=== PATIENT | male | born 1950 | race Caucasian/White ===

== ENCOUNTER 2017-06-23 14:45 | Inpatient (IN) | payer OTHER ==
[~2017-06-23] VITALS: Ht 182.9 cm; Wt 61.8 kg
[~2017-06-23 14:45] MED LIST: ALBU6.7H IH; ASPI-1181 PO; BUDE10.2 IH; CILO100T PO; CLON0.1T PO; CLOP75TA14 PO; CYCL10TA7 PO; DOCU100C33 PO; FERR325T22 PO; GABA-533 PO; GLIP10TA9 PO; INSU100V12 SQ; LABE300T PO; LISI10TA7 PO; METF10004 PO; MULT-1258 PO; OMEP20CA10 PO; SIME80TA12 PO; SIMV40TA5 PO; TRAZ-147 PO
[2017-06-23 15:22] LABS: BASOPHILS % (AUTO) 0.9 % (0.0-5.0); EOSINOPHILS % (AUTO) 0.8 % (0.0-8.0); LYMPHOCYTES % (AUTO) 14.5 % (21.0-51.0); MEAN CORPUSCULAR HEMOGLOBIN 23.5 pg (27.0-33.0); MEAN CORPUSCULAR HGB CONC 30.7 g/dL (32.0-36.0); MEAN CORPUSCULAR VOLUME 76.7 fL (79-99); MONOCYTES % (AUTO) 5.4 % (3.0-13.0); NEUTROPHILS % (AUTO) 78.4 % (40.0-77.0); NUCLEATED RED BLOOD CELLS 0.1 % (0.0-0.19); PLATELET COUNT (AUTO) 340 K/uL (130-400); RED BLOOD CELL COUNT(AUTO) 3.78 MIL/uL (4.50-6.20); RED CELL DISTRIBUTION WIDTH 18.7 % (11.0-15.5); WHITE BLOOD COUNT (AUTO) 5.8 K/uL (4.8-10.8)
[2017-06-23 15:33] LABS: INR 1.06 (0.85-1.15); PARTIAL THROMBOPLASTIN TIME 25.5 SEC (26.3-35.5); PROTHROMBIN TIME 11.1 SEC (9.6-11.6)
[2017-06-23 15:34] LABS: CREATININE 1.6 mg/dL (0.5-1.5); POTASSIUM 3.8 mmol/L (3.5-5.1)
[2017-06-23 15:39] LABS: ALBUMIN 3.5 g/dL (3.5-5.0); BILIRUBIN,TOTAL 0.6 mg/dL (0.2-1.0); TOTAL PROTEIN, SERUM 7.4 g/dL (6.0-8.3)
[2017-06-23] MEDS ORDERED: FUROSEMIDE 10 MG/ML 4ML VIAL ONE (15:42)
[2017-06-23] MEDS ORDERED: NITROGLYCERIN 1GM/1 INCH PACKET TD ONE (15:43)
[2017-06-23 15:48] LABS: B-TYPE NATRIURETIC PEPTIDE 775 pg/mL (0-100)
[2017-06-23] MEDS ORDERED: METOPROLOL TARTRATE 1 MG/ML 5ML VIAL IV ONE (16:43)
[2017-06-23 16:57] LABS: APPEARANCE,URINE Clear (CLEAR); BILIRUBIN,URINE Negative (NEGATIVE); COLOR,URINE Yellow (YELLOW); GLUCOSE, URINE (UA) Negative (NEGATIVE); KETONES,URINE Negative (NEGATIVE); LEUKOCYTE ESTERASE ,URINE Negative (NEGATIVE); NITRATE,URINE Negative (NEGATIVE); OCCULT BLOOD,URINE Negative (NEGATIVE); PROTEIN,URINE POS 1+ (NEGATIVE); UROBILINOGEN,URINE 0.2 mg/dL (0.2-1.0)
[2017-06-23] MEDS ORDERED: MORPHINE SULFATE 2 MG/ML 1ML SYG IV PRN (17:00)
[2017-06-23] MEDS ORDERED: GUAIFENESIN-DM 200/20 MG 10 ML PO PRN (17:00)
[2017-06-23] MEDS ORDERED: LACTULOSE 20 GM/30 ML UDCUP PO PRN (17:00)
[2017-06-23] MEDS ORDERED: ONDANSETRON HCL 4 MG/2 ML VIAL IV PRN (17:00)
[2017-06-23] MEDS ORDERED: ACETAMINOPHEN 325 MG TAB PO PRN ×2 (17:00)
[2017-06-23 17:14] LABS: BACTERIA,URINE Rare /HPF (None Seen); RBC,URINE None Seen /HPF (0-1); WBC,URINE 0-1 /HPF (0-1)
[2017-06-23] MEDS: IPRATROPIUM/ALBUTEROL SULFATE 3 ML SOLUTION IH SCH (18:59)
[2017-06-23 19:40] VITALS: BP 168/92
[2017-06-23] MEDS: FUROSEMIDE 10 MG/ML 4ML VIAL IVP SCH (21:12)
[2017-06-23] MEDS: FAMOTIDINE/PF 20 MG/2 ML VIAL IV SCH (21:12)
[2017-06-23] MEDS ORDERED: CLONIDINE HCL 0.1 MG TABLET PO PRN (22:45)
[2017-06-23] MEDS: TRAZODONE HCL 50 MG TAB PO SCH (23:14)
[2017-06-23] MEDS: LABETALOL HCL 200 MG TABLET PO SCH (23:14)
[2017-06-23 23:18] VITALS: BP 161/85
[2017-06-24] VITALS (7 sets, daily range): BP systolic 145–195; BP diastolic 64–99
[2017-06-24] MEDS: IPRATROPIUM/ALBUTEROL SULFATE 3 ML SOLUTION IH SCH ×4 (00:03→18:00)
[2017-06-24] MEDS: FAMOTIDINE/PF 20 MG/2 ML VIAL IV SCH ×2 (08:11→20:18)
[2017-06-24] MEDS: LABETALOL HCL 200 MG TABLET PO SCH ×2 (08:11→20:15)
[2017-06-24] MEDS: FUROSEMIDE 10 MG/ML 4ML VIAL IVP SCH ×2 (08:12→20:18)
[2017-06-24] MEDS ORDERED: LABETALOL HCL 300 MG PO SCH (09:00)
[2017-06-24] MEDS ORDERED: SUB PER P&T FOR ASTHMA OR COPD RECOMMENDATION IH PRN (09:15)
[2017-06-24] MEDS ORDERED: BUDESONIDE 0.5 MG/2 ML INH IH PRN (09:30)
[2017-06-24 10:12] LABS: HIGH SENSITIVITY CRP 6.35 mg/L (0.0-3.0); THYROID STIMULATING HORMONE 1.91 uIU/mL (0.36-3.74)
[2017-06-24 11:24] LABS: T4 (THYROXINE) 9.5 mcg/dL (4.7-13.3)
[2017-06-24] MEDS: CILOSTAZOL 100 MG TAB PO SCH ×2 (13:16→20:16)
[2017-06-24] MEDS: GABAPENTIN 300 MG CAPSULE PO SCH ×2 (13:17→20:26)
[2017-06-24] MEDS: FERROUS SULFATE 325 MG TABLET.DR PO SCH (20:16)
[2017-06-24] MEDS: ATORVASTATIN CALCIUM 20 MG TABLET PO SCH (20:17)
[2017-06-24] MEDS: INSULIN GLARGINE 100 UNITS/ML 10 ML VIAL SQ SCH (20:22)
[2017-06-24] MEDS: TRAZODONE HCL 50 MG TAB PO SCH (20:26)
[2017-06-24] MEDS ORDERED: TRAZODONE HCL 100 MG TABLET PO SCH (21:00)
[2017-06-25] MEDS: IPRATROPIUM/ALBUTEROL SULFATE 3 ML SOLUTION IH SCH ×5 (00:45→23:36)
[2017-06-25 04:22] VITALS: BP 167/78
[2017-06-25 05:07] LABS: HEMATOCRIT 27.3 % (42-54); MEAN CORPUSCULAR HEMOGLOBIN 23.3 pg (27.0-33.0); MEAN CORPUSCULAR HGB CONC 30.6 g/dL (32.0-36.0); MEAN CORPUSCULAR VOLUME 76.2 fL (79-99); NUCLEATED RED BLOOD CELLS 0.1 % (0.0-0.19); PLATELET COUNT (AUTO) 308 K/uL (130-400); RED BLOOD CELL COUNT(AUTO) 3.58 MIL/uL (4.50-6.20); RED CELL DISTRIBUTION WIDTH 18.5 % (11.0-15.5); WHITE BLOOD COUNT (AUTO) 5.2 K/uL (4.8-10.8)
[2017-06-25 05:35] LABS: CREATININE 1.9 mg/dL (0.5-1.5); POTASSIUM 3.6 mmol/L (3.5-5.1); THYROID STIMULATING HORMONE 1.09 uIU/mL (0.36-3.74)
[2017-06-25 07:56] VITALS: BP 162/75
[2017-06-25] MEDS: GABAPENTIN 300 MG CAPSULE PO SCH ×2 (08:14→22:06)
[2017-06-25] MEDS: CILOSTAZOL 100 MG TAB PO SCH ×2 (08:15→22:05)
[2017-06-25] MEDS: LABETALOL HCL 200 MG TABLET PO SCH ×2 (08:15→22:05)
[2017-06-25] MEDS: ASPIRIN 81 MG EC TAB PO SCH (08:15)
[2017-06-25] MEDS: FAMOTIDINE/PF 20 MG/2 ML VIAL IV SCH ×2 (08:16→22:02)
[2017-06-25] MEDS: FUROSEMIDE 10 MG/ML 4ML VIAL IVP SCH (08:16)
[2017-06-25] MEDS: CLOPIDOGREL BISULFATE 75 MG TAB PO SCH (08:30)
[2017-06-25] MEDS: FUROSEMIDE 40 MG TABLET PO SCH ×2 (09:00→17:24)
[2017-06-25 11:18] VITALS: BP 118/56
[2017-06-25 16:42] VITALS: BP 161/76
[2017-06-25 19:58] VITALS: BP 185/81
[2017-06-25] MEDS: TRAZODONE HCL 50 MG TAB PO SCH (22:05)
[2017-06-25] MEDS: ATORVASTATIN CALCIUM 20 MG TABLET PO SCH (22:05)
[2017-06-25] MEDS: FERROUS SULFATE 325 MG TABLET.DR PO SCH (22:05)
[2017-06-25 22:09] LABS: APPEARANCE BODY FLUID CLOUDY (CLEAR); COLOR,BODY FLUID ORANGE (LT YELLOW); SPECIMENTYPE,BODY FLUID PLEURAL; TOTAL VOLUME,BODY FLUID 1100 mL
[2017-06-25 22:10] LABS: BODY FLUID RBC 3196 /cu. mm.; BODY FLUID WBC 128 /cu. mm.
[2017-06-25] MEDS: INSULIN GLARGINE 100 UNITS/ML 10 ML VIAL SQ SCH (22:14)
[2017-06-25 22:16] LABS: BF LYMPHOCYTE 60 %; BF OTHER CELLS 7
[2017-06-25 23:09] VITALS: BP 157/76
[2017-06-26 04:05] VITALS: BP 146/63
[2017-06-26 05:26] LABS: HEMATOCRIT 25.3 % (42-54); MEAN CORPUSCULAR HEMOGLOBIN 24.1 pg (27.0-33.0); MEAN CORPUSCULAR HGB CONC 31.6 g/dL (32.0-36.0); MEAN CORPUSCULAR VOLUME 76.2 fL (79-99); PLATELET COUNT (AUTO) 269 K/uL (130-400); RED BLOOD CELL COUNT(AUTO) 3.32 MIL/uL (4.50-6.20); RED CELL DISTRIBUTION WIDTH 18.3 % (11.0-15.5); WHITE BLOOD COUNT (AUTO) 5.2 K/uL (4.8-10.8)
[2017-06-26 05:46] LABS: CREATININE 1.5 mg/dL (0.5-1.5); POTASSIUM 3.9 mmol/L (3.5-5.1)
[2017-06-26] MEDS: IPRATROPIUM/ALBUTEROL SULFATE 3 ML SOLUTION IH SCH ×4 (06:35→23:24)
[2017-06-26 07:00] VITALS: BP 144/86
[2017-06-26] MEDS: GABAPENTIN 300 MG CAPSULE PO SCH ×2 (09:43→20:28)
[2017-06-26] MEDS: CLOPIDOGREL BISULFATE 75 MG TAB PO SCH (09:43)
[2017-06-26] MEDS: FUROSEMIDE 40 MG TABLET PO SCH ×2 (09:44→17:33)
[2017-06-26] MEDS: LABETALOL HCL 200 MG TABLET PO SCH ×2 (09:44→20:30)
[2017-06-26] MEDS: FAMOTIDINE/PF 20 MG/2 ML VIAL IV SCH ×2 (09:44→20:24)
[2017-06-26] MEDS: CILOSTAZOL 100 MG TAB PO SCH ×2 (09:44→20:29)
[2017-06-26] MEDS: ASPIRIN 81 MG EC TAB PO SCH (09:44)
[2017-06-26 11:44] VITALS: BP 169/75
[2017-06-26 13:26] LABS: CREATININE 1.5 mg/dL (0.5-1.5); POTASSIUM 4.4 mmol/L (3.5-5.1)
[2017-06-26 16:00] VITALS: BP 153/83
[2017-06-26 19:47] VITALS: BP 152/74
[2017-06-26] MEDS: TRAZODONE HCL 50 MG TAB PO SCH (20:27)
[2017-06-26] MEDS: FERROUS SULFATE 325 MG TABLET.DR PO SCH (20:28)
[2017-06-26] MEDS: ATORVASTATIN CALCIUM 20 MG TABLET PO SCH (20:29)
[2017-06-26] MEDS: INSULIN GLARGINE 100 UNITS/ML 10 ML VIAL SQ SCH (20:34)
[2017-06-26 23:35] VITALS: BP 147/73
[2017-06-27 04:33] LABS: MEAN CORPUSCULAR HEMOGLOBIN 23.6 pg (27.0-33.0); MEAN CORPUSCULAR HGB CONC 31.1 g/dL (32.0-36.0); PLATELET COUNT (AUTO) 275 K/uL (130-400); RED BLOOD CELL COUNT(AUTO) 3.42 MIL/uL (4.50-6.20); RED CELL DISTRIBUTION WIDTH 18.1 % (11.0-15.5); WHITE BLOOD COUNT (AUTO) 6.3 K/uL (4.8-10.8)
[2017-06-27 04:35] LABS: CREATININE 1.7 mg/dL (0.5-1.5); POTASSIUM 4.5 mmol/L (3.5-5.1)
[2017-06-27 05:16] LABS: BAND NEUTROPHILS % (MANUAL) 13 % (0-2); LYMPHOCYTES % (MANUAL) 12 % (22-44); MAN.DIFF COMMENT-IMPRESSION MANUAL DIFFERENTIAL; MONOCYTES % (MANUAL) 6 % (2-9); PLATELET MORPHOLOGY COMMENT ADEQUATE; SEGMENTED NEUTROPHILS % 69 % (40-70)
[2017-06-27] MEDS: IPRATROPIUM/ALBUTEROL SULFATE 3 ML SOLUTION IH SCH ×4 (06:07→23:53)
[2017-06-27 07:00] VITALS: BP 134/64
[2017-06-27] MEDS: GABAPENTIN 300 MG CAPSULE PO SCH ×2 (10:08→22:01)
[2017-06-27] MEDS: LABETALOL HCL 200 MG TABLET PO SCH ×2 (10:08→22:00)
[2017-06-27] MEDS: ASPIRIN 81 MG EC TAB PO SCH (10:09)
[2017-06-27] MEDS: CLOPIDOGREL BISULFATE 75 MG TAB PO SCH (10:09)
[2017-06-27] MEDS: CILOSTAZOL 100 MG TAB PO SCH ×2 (10:09→22:03)
[2017-06-27] MEDS: FAMOTIDINE/PF 20 MG/2 ML VIAL IV SCH ×2 (10:10→21:57)
[2017-06-27 10:43] LABS: RETICULOCYTE % (AUTO) 2.38 % (0.42-2.23)
[2017-06-27 11:00] VITALS: BP 157/74
[2017-06-27 11:28] LABS: % IRON SATURATION 54.8 % (30-44); FERRITIN 42 ng/mL (30-400); IRON, SERUM 118 mcg/dL (65-175); TOTAL IRON BINDING CAPACITY 215 mcg/dL (250-450)
[2017-06-27 16:00] VITALS: BP 150/78
[2017-06-27 20:04] VITALS: BP 129/59
[2017-06-27] MEDS: INSULIN GLARGINE 100 UNITS/ML 10 ML VIAL SQ SCH (21:55)
[2017-06-27] MEDS: ATORVASTATIN CALCIUM 20 MG TABLET PO SCH (22:01)
[2017-06-27] MEDS: FERROUS SULFATE 325 MG TABLET.DR PO SCH (22:02)
[2017-06-27] MEDS: TRAZODONE HCL 50 MG TAB PO SCH (22:03)
[2017-06-27] MEDS ORDERED: GLUCAGON 1MG KIT 1 MG ML IM PRN (23:15)
[2017-06-27] MEDS ORDERED: DEXTROSE 50%-WATER 50 ML DISP.SYRIN IV PRN (23:15)
[2017-06-27] MEDS ORDERED: INSULIN HUMULIN R 100 UNIT/ML 3ML ONE (23:44)
[2017-06-27 23:47] VITALS: BP 153/69
[2017-06-28 04:03] VITALS: BP 120/51
[2017-06-28 04:40] LABS: HEMATOCRIT 22.2 % (42-54); MEAN CORPUSCULAR HEMOGLOBIN 24.6 pg (27.0-33.0); MEAN CORPUSCULAR HGB CONC 32.5 g/dL (32.0-36.0); MEAN CORPUSCULAR VOLUME 75.5 fL (79-99); PLATELET COUNT (AUTO) 218 K/uL (130-400); RED BLOOD CELL COUNT(AUTO) 2.94 MIL/uL (4.50-6.20); RED CELL DISTRIBUTION WIDTH 17.8 % (11.0-15.5); WHITE BLOOD COUNT (AUTO) 3.9 K/uL (4.8-10.8)
[2017-06-28 04:56] LABS: CREATININE 1.7 mg/dL (0.5-1.5)
[2017-06-28] MEDS: IPRATROPIUM/ALBUTEROL SULFATE 3 ML SOLUTION IH SCH ×2 (06:12→11:09)
[2017-06-28 06:15] LABS: HEPATITIS A ANTIBODY IGM Negative (Negative); HEPATITIS B CORE IGM Negative (Negative); HEPATITIS Bs ANTIGEN SCREEN P Negative (Negative)
[2017-06-28] MEDS: INSULIN HUMULIN R 100 UNIT/ML 3ML SQ SCH ×2 (06:22→12:14)
[2017-06-28 07:50] VITALS: BP 161/82
[2017-06-28] MEDS ORDERED: FURO40TA7 PO (08:49)
[2017-06-28] MEDS ORDERED: FERS325 PO (08:49)
[2017-06-28] MEDS ORDERED: FUROSEMIDE 40 MG TABLET PO SCH (09:00)
[2017-06-28] MEDS ORDERED: COMPOUND IV MISC 1 EACH IVSOLN MISC PRN (09:00)
[2017-06-28 09:03] LABS: HEMATOCRIT 24.5 % (42-54)
[2017-06-28] MEDS: GABAPENTIN 300 MG CAPSULE PO SCH (09:15)
[2017-06-28] MEDS: CILOSTAZOL 100 MG TAB PO SCH (09:16)
[2017-06-28] MEDS: ASPIRIN 81 MG EC TAB PO SCH (09:16)
[2017-06-28] MEDS: CLOPIDOGREL BISULFATE 75 MG TAB PO SCH (09:16)
[2017-06-28] MEDS: LABETALOL HCL 200 MG TABLET PO SCH (09:16)
[2017-06-28] MEDS: FAMOTIDINE/PF 20 MG/2 ML VIAL IV SCH (09:18)
[2017-06-28 11:29] VITALS: BP 162/89
[2017-06-28] MEDS: IRON SUCROSE COMPLEX 100 MG in SODIUM CHLORIDE 0.9% 50 ML IV SCH ×2 (11:57→11:58)
== END 2017-06-28 15:13 | disposition home or self-care (01) | DRG 291 ==
LOC: EDH 14:45 → EDHIP 16:50 → 2DH 17:57 → 2CH 06-24 13:30 → 2DH 06-24 21:04
PROVIDERS: ADMIT Family Medicine; ATTEND Family Medicine
PROC: 0W9B3ZZ Drainage of Left Pleural Cavity, Percutaneous Approach (ICD-10-PCS; principal; 2017-06-25)
DX: I13.0 Hypertensive heart and chronic kidney disease with heart failure and stage 1 through stage 4 chronic kidney disease, or unspecified chronic kidney disease (principal); I50.33 Acute on chronic diastolic (congestive) heart failure; J96.10 Chronic respiratory failure, unspecified whether with hypoxia or hypercapnia; I74.5 Embolism and thrombosis of iliac artery; E11.21 Type 2 diabetes mellitus with diabetic nephropathy; E11.42 Type 2 diabetes mellitus with diabetic polyneuropathy; Z99.81 Dependence on supplemental oxygen; E78.5 Hyperlipidemia, unspecified; E11.22 Type 2 diabetes mellitus with diabetic chronic kidney disease; E11.51 Type 2 diabetes mellitus with diabetic peripheral angiopathy without gangrene; E11.65 Type 2 diabetes mellitus with hyperglycemia; I25.10 Atherosclerotic heart disease of native coronary artery without angina pectoris; I70.1 Atherosclerosis of renal artery; J44.9 Chronic obstructive pulmonary disease, unspecified; N18.3 Chronic kidney disease, stage 3 (moderate); D64.9 Anemia, unspecified; Z87.81 Personal history of (healed) traumatic fracture; Z87.891 Personal history of nicotine dependence; Z95.1 Presence of aortocoronary bypass graft; Z95.5 Presence of coronary angioplasty implant and graft
CPT/HCPCS: 36415; 71045; 71250; 76700; 80048; 80053; 80074; 81001; 82105; 82378; 82550; 82607; 82728; 82746; 82945; 82948; 83615; 83880; 83986; 84157; 84436; 84439; 84443; 84484; 85025; 85027; 85610; 85651; 85730; 86038; 86141; 86160; 86431; 87071; 87205; 88108; 88305; 89051; 93005; 93306; 93308; 94640; 94664; 99291; J1756; J1815; J1940; J3490

== ENCOUNTER → 2017-09-21 | Outpatient (CLI) | payer OTHER ==
[~2017-09-21] MED LIST changes: +FERS325 PO; +FOLI1TAB15 PO; +FURO40TA5 PO; +FURO40TA7 PO; -LABE300T PO; +LABE300T2 PO; +POTA99TA21 PO; +PRED10TA3 PO; -TRAZ-147 PO; +TRAZ-187 PO
== END | disposition home or self-care (01) ==
LOC: SHCH 07:50
PROVIDERS: ATTEND Internal Medicine Cardiovascular Disease
DX: K55.059 Acute (reversible) ischemia of intestine, part and extent unspecified (principal); K21.9 Gastro-esophageal reflux disease without esophagitis
CPT/HCPCS: 93978

== ENCOUNTER → 2017-09-23 | Outpatient (CLI) | payer OTHER ==
[~2017-09-23] MED LIST changes: +LIDOCAINE HCL 1% 20 ML VIAL ONE
[2017-09-23 15:30] LABS: INR 1.19 (0.85-1.15); PARTIAL THROMBOPLASTIN TIME 25.4 SEC (26.3-35.5); PROTHROMBIN TIME 12.5 SEC (9.6-11.6)
== END | disposition home or self-care (01) ==
LOC: RAH 14:06
PROVIDERS: ATTEND Internal Medicine Cardiovascular Disease
DX: J90 Pleural effusion, not elsewhere classified (principal); R18.8 Other ascites; Z98.890 Other specified postprocedural states; I10 Essential (primary) hypertension; E78.5 Hyperlipidemia, unspecified; E11.9 Type 2 diabetes mellitus without complications; Z87.891 Personal history of nicotine dependence; Z79.84 Long term (current) use of oral hypoglycemic drugs; Z79.899 Other long term (current) drug therapy; Z79.01 Long term (current) use of anticoagulants
CPT/HCPCS: 32555; 36415; 71045; 85610; 85730

== ENCOUNTER 2017-10-07 12:00 | Inpatient (IN) | payer OTHER ==
[~2017-10-07] VITALS: Ht 177.8 cm; Wt 64.0 kg
[~2017-10-07 12:00] MED LIST changes: -FOLI1TAB15 PO; -FURO40TA5 PO; -LIDOCAINE HCL 1% 20 ML VIAL ONE; -POTA99TA21 PO; -PRED10TA3 PO
[2017-10-07 13:13] VITALS: BP 138/60
[2017-10-07 13:51] LABS: BASOPHILS % (AUTO) 1.5 % (0.0-5.0); EOSINOPHILS % (AUTO) 0.1 % (0.0-8.0); HEMATOCRIT 30.6 % (42-54); LYMPHOCYTES % (AUTO) 2.3 % (21.0-51.0); MEAN CORPUSCULAR HEMOGLOBIN 22.1 pg (27.0-33.0); MEAN CORPUSCULAR HGB CONC 29.7 g/dL (32.0-36.0); MEAN CORPUSCULAR VOLUME 74.5 fL (79-99); MONOCYTES % (AUTO) 2.9 % (3.0-13.0); NEUTROPHILS % (AUTO) 93.2 % (40.0-77.0); PLATELET COUNT (AUTO) 271 K/uL (130-400); RED BLOOD CELL COUNT(AUTO) 4.11 MIL/uL (4.50-6.20); RED CELL DISTRIBUTION WIDTH 20.2 % (11.0-15.5); WHITE BLOOD COUNT (AUTO) 8.8 K/uL (4.8-10.8)
[2017-10-07] MEDS ORDERED: ALBU6.7H IH (13:56)
[2017-10-07] MEDS ORDERED: PRED10TA3 PO (13:56)
[2017-10-07] MEDS ORDERED: FOLI1TAB15 PO (13:56)
[2017-10-07] MEDS ORDERED: FURO40TA5 PO (13:56)
[2017-10-07] MEDS ORDERED: FERR325T22 PO (13:56)
[2017-10-07] MEDS ORDERED: MULT-1258 PO (13:56)
[2017-10-07] MEDS ORDERED: POTA99TA21 PO (13:56)
[2017-10-07 14:05] LABS: INR 1.02 (0.85-1.15); PARTIAL THROMBOPLASTIN TIME 23.7 SEC (26.3-35.5); PROTHROMBIN TIME 10.7 SEC (9.6-11.6)
[2017-10-07 14:06] LABS: CREATININE 1.8 mg/dL (0.5-1.5)
[2017-10-07 14:10] LABS: POTASSIUM 6.3 mmol/L (3.5-5.1)
[2017-10-07 16:30] VITALS: BP 184/79
[2017-10-07 16:33] LABS: APPEARANCE,URINE Clear (CLEAR); BILIRUBIN,URINE Negative (NEGATIVE); COLOR,URINE Yellow (YELLOW); GLUCOSE, URINE (UA) >=1000 mg/dL (NEGATIVE); KETONES,URINE Negative (NEGATIVE); LEUKOCYTE ESTERASE ,URINE Negative (NEGATIVE); NITRATE,URINE Negative (NEGATIVE); OCCULT BLOOD,URINE Negative (NEGATIVE); PROTEIN,URINE POS 2+ (NEGATIVE); UROBILINOGEN,URINE 0.2 mg/dL (0.2-1.0)
[2017-10-07 16:54] LABS: BACTERIA,URINE Rare /HPF (None Seen); RBC,URINE 0-1 /HPF (0-1); SQUAMOUS EPITHELIAL CELL,UR Rare /HPF (0-2); WBC,URINE 0-1 /HPF (0-1)
[2017-10-07] MEDS ORDERED: SODIUM POLYSTYRENE SULFONATE 15 GM/60 ML ML PO NR (17:15)
[2017-10-07] MEDS: SODIUM CHLORIDE 0.9% 1000ML 1,000 ML IV SCH (18:04)
[2017-10-07 19:09] LABS: CREATININE 1.9 mg/dL (0.5-1.5); POTASSIUM 4.8 mmol/L (3.5-5.1)
[2017-10-07 19:30] VITALS: BP 174/81
[2017-10-07] MEDS ORDERED: ACETAMINOPHEN 325 MG TAB PO PRN (22:30)
[2017-10-07] MEDS ORDERED: ONDANSETRON HCL MDV 20ML 2 MG/ML VIAL IVP PRN (22:30)
[2017-10-08] VITALS (7 sets, daily range): BP systolic 114–179; BP diastolic 60–94
[2017-10-08] MEDS: INSULIN R PO SS1 SQ SCH ×5 (01:17→21:38)
[2017-10-08] MEDS: SODIUM CHLORIDE 0.9% 1000ML 1,000 ML IV SCH (01:39)
[2017-10-08] MEDS ORDERED: FURO40TA5 PO (03:42)
[2017-10-08] MEDS ORDERED: PRED10TA3 PO (03:42)
[2017-10-08] MEDS: LABETALOL 20 MG/4 ML DISP.SYRIN IV SCH ×3 (04:00→20:35)
[2017-10-08] MEDS ORDERED: LABETALOL 20 MG/4 ML DISP.SYRIN IV ONE (04:08)
[2017-10-08 04:42] LABS: HEMATOCRIT 27.5 % (42-54); MEAN CORPUSCULAR HEMOGLOBIN 23.2 pg (27.0-33.0); MEAN CORPUSCULAR HGB CONC 31.8 g/dL (32.0-36.0); MEAN CORPUSCULAR VOLUME 72.7 fL (79-99); PLATELET COUNT (AUTO) 231 K/uL (130-400); RED BLOOD CELL COUNT(AUTO) 3.78 MIL/uL (4.50-6.20); RED CELL DISTRIBUTION WIDTH 19.4 % (11.0-15.5); WHITE BLOOD COUNT (AUTO) 6.6 K/uL (4.8-10.8)
[2017-10-08 05:01] LABS: CREATININE 1.3 mg/dL (0.5-1.5); THYROID STIMULATING HORMONE 3.26 uIU/mL (0.36-3.74)
[2017-10-08] MEDS ORDERED: FAMOTIDINE 20MG TAB 20 MG TAB PO SCH (09:00)
[2017-10-08] MEDS ORDERED: CLONIDINE HCL 0.1 MG TABLET PO PRN (10:45)
[2017-10-08] MEDS: FERROUS SULFATE 325 MG TABLET.DR PO SCH ×2 (15:12→20:21)
[2017-10-08] MEDS: CYCLOBENZAPRINE HCL 10 MG TABLET PO SCH ×2 (15:12→20:20)
[2017-10-08] MEDS: GLIPIZIDE 5 MG TABLET PO SCH (17:23)
[2017-10-08 19:08] LABS: CREATININE 1.4 mg/dL (0.5-1.5); POTASSIUM 3.2 mmol/L (3.5-5.1)
[2017-10-08] MEDS: CILOSTAZOL 100 MG TAB PO SCH (20:19)
[2017-10-08] MEDS: LABETALOL HCL 200 MG TABLET PO SCH (20:20)
[2017-10-08] MEDS: TRAZODONE HCL 100 MG TABLET PO SCH (20:20)
[2017-10-08] MEDS: ATORVASTATIN CALCIUM 20 MG TABLET PO SCH (20:20)
[2017-10-08] MEDS: PANTOPRAZOLE SODIUM 40 MG TABLET.DR PO SCH (20:21)
[2017-10-08] MEDS: GABAPENTIN 300 MG CAPSULE PO SCH (20:22)
[2017-10-08] MEDS: INSULIN GLARGINE 100 UNITS/ML 10 ML VIAL SQ SCH (20:42)
[2017-10-09 03:10] VITALS: BP 143/69
[2017-10-09] MEDS: INSULIN R PO SS1 SQ SCH ×4 (06:46→21:01)
[2017-10-09 06:53] LABS: HEMATOCRIT 26.7 % (42-54); MEAN CORPUSCULAR HEMOGLOBIN 22.1 pg (27.0-33.0); MEAN CORPUSCULAR HGB CONC 30.7 g/dL (32.0-36.0); PLATELET COUNT (AUTO) 215 K/uL (130-400); RED BLOOD CELL COUNT(AUTO) 3.71 MIL/uL (4.50-6.20); RED CELL DISTRIBUTION WIDTH 19.5 % (11.0-15.5); WHITE BLOOD COUNT (AUTO) 5.3 K/uL (4.8-10.8)
[2017-10-09 07:02] LABS: CREATININE 1.2 mg/dL (0.5-1.5); POTASSIUM 3.1 mmol/L (3.5-5.1)
[2017-10-09 07:55] VITALS: BP 144/61
[2017-10-09] MEDS: CYCLOBENZAPRINE HCL 10 MG TABLET PO SCH ×3 (08:50→20:57)
[2017-10-09] MEDS: FOLIC ACID 1 MG TABLET PO SCH (08:50)
[2017-10-09] MEDS: DOCUSATE SODIUM 100 MG CAP PO SCH (08:50)
[2017-10-09] MEDS: MULTIVITAMIN WITH MINERALS TABLET PO SCH (08:50)
[2017-10-09] MEDS: FERROUS SULFATE 325 MG TABLET.DR PO SCH ×3 (08:50→20:54)
[2017-10-09] MEDS: FUROSEMIDE 20 MG TABLET PO SCH (08:50)
[2017-10-09] MEDS: PANTOPRAZOLE SODIUM 40 MG TABLET.DR PO SCH ×2 (08:50→20:55)
[2017-10-09] MEDS: CLOPIDOGREL BISULFATE 75 MG TAB PO SCH (08:51)
[2017-10-09] MEDS: CILOSTAZOL 100 MG TAB PO SCH ×2 (08:51→20:55)
[2017-10-09] MEDS: PREDNISONE 10 MG TABLET PO SCH (08:51)
[2017-10-09] MEDS: GABAPENTIN 300 MG CAPSULE PO SCH ×2 (08:55→20:54)
[2017-10-09] MEDS: LABETALOL HCL 200 MG TABLET PO SCH ×2 (08:57→20:53)
[2017-10-09] MEDS: LABETALOL 20 MG/4 ML DISP.SYRIN IV SCH (09:00)
[2017-10-09] MEDS: GLIPIZIDE 5 MG TABLET PO SCH ×2 (09:01→17:15)
[2017-10-09] MEDS ORDERED: POTASSIUM CHLORIDE 10% ELIXIR 20 MEQ/15 ML UDCUP PO PRN (10:15)
[2017-10-09] MEDS ORDERED: POTASSIUM CHLORIDE 20MEQ/100ML 100 ML IV PRN (10:15)
[2017-10-09] MEDS ORDERED: POTASSIUM CHLORIDE 20 MEQ ERTAB PO PRN (10:15)
[2017-10-09] MEDS ORDERED: LIDOCAINE HCL-MPF 1% 2ML VIAL IVP PRN (10:15)
[2017-10-09 11:55] VITALS: BP 153/77
[2017-10-09 15:37] VITALS: BP 188/83
[2017-10-09 19:25] VITALS: BP 202/95
[2017-10-09] MEDS: ATORVASTATIN CALCIUM 20 MG TABLET PO SCH (20:53)
[2017-10-09] MEDS: TRAZODONE HCL 100 MG TABLET PO SCH (20:53)
[2017-10-09] MEDS ORDERED: POTASSIUM CHLORIDE 10 MEQ/TAB.SA PO SCH (21:00)
[2017-10-09] MEDS: INSULIN GLARGINE 100 UNITS/ML 10 ML VIAL SQ SCH (21:05)
[2017-10-09] MEDS: LABETALOL HCL 5 MG/ML 20ML VIAL IV SCH (22:56)
[2017-10-09 23:30] VITALS: BP 192/93
[2017-10-10 00:30] VITALS: BP 186/97
[2017-10-10 04:30] VITALS: BP 132/67
[2017-10-10] MEDS: INSULIN R PO SS1 SQ SCH ×4 (06:34→22:40)
[2017-10-10 06:53] LABS: HEMATOCRIT 25.9 % (42-54); MEAN CORPUSCULAR HEMOGLOBIN 23.7 pg (27.0-33.0); MEAN CORPUSCULAR HGB CONC 32.7 g/dL (32.0-36.0); MEAN CORPUSCULAR VOLUME 72.6 fL (79-99); PLATELET COUNT (AUTO) 238 K/uL (130-400); RED BLOOD CELL COUNT(AUTO) 3.56 MIL/uL (4.50-6.20); RED CELL DISTRIBUTION WIDTH 19.8 % (11.0-15.5); WHITE BLOOD COUNT (AUTO) 5.5 K/uL (4.8-10.8)
[2017-10-10 07:00] LABS: CREATININE 1.3 mg/dL (0.5-1.5)
[2017-10-10 07:10] LABS: POTASSIUM 2.9 mmol/L (3.5-5.1)
[2017-10-10 08:00] VITALS: BP 193/78
[2017-10-10] MEDS ORDERED: SODIUM CHLORIDE 0.9% 1000ML 1,000 ML IV SCH ×2 (09:30→23:55)
[2017-10-10] MEDS: CLOPIDOGREL BISULFATE 75 MG TAB PO SCH (10:49)
[2017-10-10] MEDS: CILOSTAZOL 100 MG TAB PO SCH ×2 (10:49→22:29)
[2017-10-10] MEDS: GABAPENTIN 300 MG CAPSULE PO SCH ×2 (10:50→22:28)
[2017-10-10] MEDS: MULTIVITAMIN WITH MINERALS TABLET PO SCH (10:51)
[2017-10-10] MEDS: DOCUSATE SODIUM 100 MG CAP PO SCH (10:51)
[2017-10-10] MEDS: FOLIC ACID 1 MG TABLET PO SCH (10:51)
[2017-10-10] MEDS: PANTOPRAZOLE SODIUM 40 MG TABLET.DR PO SCH ×2 (10:51→22:27)
[2017-10-10] MEDS: FERROUS SULFATE 325 MG TABLET.DR PO SCH ×3 (10:52→22:33)
[2017-10-10] MEDS: PREDNISONE 10 MG TABLET PO SCH (10:52)
[2017-10-10] MEDS: LABETALOL HCL 200 MG TABLET PO SCH ×2 (10:52→22:29)
[2017-10-10] MEDS: FUROSEMIDE 20 MG TABLET PO SCH (10:52)
[2017-10-10] MEDS: GLIPIZIDE 5 MG TABLET PO SCH ×2 (10:58→15:38)
[2017-10-10] MEDS: CYCLOBENZAPRINE HCL 10 MG TABLET PO SCH ×3 (10:58→22:28)
[2017-10-10] MEDS: LABETALOL HCL 5 MG/ML 20ML VIAL IV SCH ×2 (10:59→22:33)
[2017-10-10 12:00] VITALS: BP 193/92
[2017-10-10 16:00] VITALS: BP 191/87
[2017-10-10 19:21] VITALS: BP 171/97
[2017-10-10 19:38] LABS: CREATININE 1.5 mg/dL (0.5-1.5); POTASSIUM 3.6 mmol/L (3.5-5.1)
[2017-10-10] MEDS: TRAZODONE HCL 100 MG TABLET PO SCH (22:27)
[2017-10-10] MEDS: POTASSIUM CHLORIDE 20 MEQ ERTAB PO SCH (22:28)
[2017-10-10] MEDS: ATORVASTATIN CALCIUM 20 MG TABLET PO SCH (22:29)
[2017-10-10] MEDS: INSULIN GLARGINE 100 UNITS/ML 10 ML VIAL SQ SCH (22:40)
[2017-10-11] VITALS (11 sets, daily range): BP systolic 113–171; BP diastolic 57–90
[2017-10-11 04:33] LABS: INR 0.97 (0.85-1.15); PROTHROMBIN TIME 10.2 SEC (9.6-11.6)
[2017-10-11 04:37] LABS: CREATININE 1.5 mg/dL (0.5-1.5); POTASSIUM 3.5 mmol/L (3.5-5.1)
[2017-10-11] MEDS: INSULIN R PO SS1 SQ SCH ×4 (06:18→21:46)
[2017-10-11] MEDS: GLIPIZIDE 5 MG TABLET PO SCH ×2 (08:00→16:49)
[2017-10-11] MEDS: LABETALOL HCL 5 MG/ML 20ML VIAL IV SCH ×2 (08:02→21:00)
[2017-10-11] MEDS: LABETALOL HCL 200 MG TABLET PO SCH ×3 (08:04→21:00)
[2017-10-11] MEDS: FOLIC ACID 1 MG TABLET PO SCH (09:00)
[2017-10-11] MEDS: FERROUS SULFATE 325 MG TABLET.DR PO SCH ×3 (09:00→21:30)
[2017-10-11] MEDS: MULTIVITAMIN WITH MINERALS TABLET PO SCH (09:00)
[2017-10-11] MEDS: GABAPENTIN 300 MG CAPSULE PO SCH ×2 (09:00→21:32)
[2017-10-11] MEDS: CYCLOBENZAPRINE HCL 10 MG TABLET PO SCH ×3 (09:00→21:00)
[2017-10-11] MEDS: FUROSEMIDE 20 MG TABLET PO SCH (09:00)
[2017-10-11] MEDS: PANTOPRAZOLE SODIUM 40 MG TABLET.DR PO SCH ×2 (09:00→21:33)
[2017-10-11] MEDS: DOCUSATE SODIUM 100 MG CAP PO SCH (09:00)
[2017-10-11] MEDS: PREDNISONE 10 MG TABLET PO SCH (10:21)
[2017-10-11] MEDS: CILOSTAZOL 100 MG TAB PO SCH ×2 (10:39→21:00)
[2017-10-11] MEDS: CLOPIDOGREL BISULFATE 75 MG TAB PO SCH (10:40)
[2017-10-11] MEDS ORDERED: LABETALOL HCL 5 MG/ML 20ML VIAL IV SCH (10:45)
[2017-10-11] MEDS: POTASSIUM CHLORIDE 20 MEQ ERTAB PO SCH ×2 (11:07→21:31)
[2017-10-11] MEDS ORDERED: SODIUM BICARB 50MEQ 50ML VIAL ONE (12:15)
[2017-10-11] MEDS ORDERED: HEPARIN SODIUM 1000UNIT/ML 10ML VIAL ONE (12:16)
[2017-10-11] MEDS ORDERED: NITROGLYCERIN 5 MG/ML 10 ML VIAL IV ONE (12:16)
[2017-10-11] MEDS ORDERED: ISOVUE-300 100 ML VIAL IV ONE (12:16)
[2017-10-11] MEDS ORDERED: LIDOCAINE HCL 1% 20 ML VIAL ONE (13:45)
[2017-10-11] MEDS ORDERED: MORPHINE SULFATE 4 MG/1ML SYG IVP SCH ×2 (15:45)
[2017-10-11] MEDS ORDERED: ONDANSETRON HCL MDV 20ML 2 MG/ML VIAL IVP SCH (15:45)
[2017-10-11] MEDS: SODIUM CHLORIDE 0.9% 1000ML 1,000 ML IV SCH (16:54)
[2017-10-11] MEDS: TRAZODONE HCL 100 MG TABLET PO SCH (21:00)
[2017-10-11] MEDS ORDERED: MORPHINE SULFATE 4 MG/1ML SYG ONE (21:22)
[2017-10-11] MEDS: ATORVASTATIN CALCIUM 20 MG TABLET PO SCH (21:32)
[2017-10-11] MEDS: INSULIN GLARGINE 100 UNITS/ML 10 ML VIAL SQ SCH (21:45)
[2017-10-12] VITALS (7 sets, daily range): BP systolic 126–165; BP diastolic 67–90
[2017-10-12] MEDS: SODIUM CHLORIDE 0.9% 1000ML 1,000 ML IV SCH (00:36)
[2017-10-12 04:05] LABS: HEMATOCRIT 22.7 % (42-54); MEAN CORPUSCULAR HEMOGLOBIN 23.6 pg (27.0-33.0); MEAN CORPUSCULAR VOLUME 73.6 fL (79-99); PLATELET COUNT (AUTO) 180 K/uL (130-400); RED BLOOD CELL COUNT(AUTO) 3.08 MIL/uL (4.50-6.20); RED CELL DISTRIBUTION WIDTH 20.1 % (11.0-15.5); WHITE BLOOD COUNT (AUTO) 4.9 K/uL (4.8-10.8)
[2017-10-12 04:18] LABS: ALBUMIN 2.4 g/dL (3.5-5.0); BILIRUBIN,TOTAL 0.3 mg/dL (0.2-1.0); CREATININE 1.5 mg/dL (0.5-1.5); POTASSIUM 4.1 mmol/L (3.5-5.1); TOTAL PROTEIN, SERUM 5.7 g/dL (6.0-8.3)
[2017-10-12] MEDS: INSULIN R PO SS1 SQ SCH ×4 (06:17→22:12)
[2017-10-12] MEDS ORDERED: LABETALOL HCL 5 MG/ML 20ML VIAL IV PRN (07:15)
[2017-10-12 07:46] LABS: HEMATOCRIT 24.1 % (42-54)
[2017-10-12] MEDS: FERROUS SULFATE 325 MG TABLET.DR PO SCH ×3 (08:22→22:04)
[2017-10-12] MEDS: PANTOPRAZOLE SODIUM 40 MG TABLET.DR PO SCH ×2 (08:23→22:06)
[2017-10-12] MEDS: DOCUSATE SODIUM 100 MG CAP PO SCH (08:23)
[2017-10-12] MEDS: CYCLOBENZAPRINE HCL 10 MG TABLET PO SCH ×3 (08:23→22:06)
[2017-10-12] MEDS: GABAPENTIN 300 MG CAPSULE PO SCH ×2 (08:23→22:05)
[2017-10-12] MEDS: GLIPIZIDE 5 MG TABLET PO SCH ×2 (08:23→17:32)
[2017-10-12] MEDS: FOLIC ACID 1 MG TABLET PO SCH (08:23)
[2017-10-12] MEDS: CLOPIDOGREL BISULFATE 75 MG TAB PO SCH (08:23)
[2017-10-12] MEDS: PREDNISONE 10 MG TABLET PO SCH (08:24)
[2017-10-12] MEDS: POTASSIUM CHLORIDE 20 MEQ ERTAB PO SCH ×2 (08:24→22:07)
[2017-10-12] MEDS: MULTIVITAMIN WITH MINERALS TABLET PO SCH (08:24)
[2017-10-12] MEDS: LABETALOL HCL 200 MG TABLET PO SCH ×3 (08:24→22:05)
[2017-10-12] MEDS: FUROSEMIDE 20 MG TABLET PO SCH (08:25)
[2017-10-12 08:35] LABS: % IRON SATURATION 30.5 % (30-44); FERRITIN 81 ng/mL (30-400); IRON, SERUM 67 mcg/dL (65-175); TOTAL IRON BINDING CAPACITY 219 mcg/dL (250-450)
[2017-10-12] MEDS: IRON SUCROSE COMPLEX 100 MG in SODIUM CHLORIDE 0.9% 50 ML IV SCH ×2 (13:17→17:33)
[2017-10-12] MEDS: TRAZODONE HCL 100 MG TABLET PO SCH (22:06)
[2017-10-12] MEDS: ATORVASTATIN CALCIUM 20 MG TABLET PO SCH (22:07)
[2017-10-12] MEDS: INSULIN GLARGINE 100 UNITS/ML 10 ML VIAL SQ SCH (22:11)
[2017-10-13 03:40] VITALS: BP 128/64
[2017-10-13 04:27] LABS: HEMATOCRIT 27.7 % (42-54); MEAN CORPUSCULAR HEMOGLOBIN 24.1 pg (27.0-33.0); MEAN CORPUSCULAR HGB CONC 32.2 g/dL (32.0-36.0); MEAN CORPUSCULAR VOLUME 74.8 fL (79-99); PLATELET COUNT (AUTO) 213 K/uL (130-400); RED CELL DISTRIBUTION WIDTH 19.6 % (11.0-15.5); WHITE BLOOD COUNT (AUTO) 6.4 K/uL (4.8-10.8)
[2017-10-13 04:44] LABS: CREATININE 1.5 mg/dL (0.5-1.5); POTASSIUM 4.2 mmol/L (3.5-5.1)
[2017-10-13] MEDS: INSULIN R PO SS1 SQ SCH (05:57)
[2017-10-13 07:17] VITALS: BP 139/77
[2017-10-13] MEDS: POTASSIUM CHLORIDE 20 MEQ ERTAB PO SCH (08:15)
[2017-10-13] MEDS: PREDNISONE 10 MG TABLET PO SCH (08:16)
[2017-10-13] MEDS: FUROSEMIDE 20 MG TABLET PO SCH (08:16)
[2017-10-13] MEDS: PANTOPRAZOLE SODIUM 40 MG TABLET.DR PO SCH (08:16)
[2017-10-13] MEDS: GLIPIZIDE 5 MG TABLET PO SCH (08:16)
[2017-10-13] MEDS: DOCUSATE SODIUM 100 MG CAP PO SCH (08:16)
[2017-10-13] MEDS: CLOPIDOGREL BISULFATE 75 MG TAB PO SCH (08:17)
[2017-10-13] MEDS: FOLIC ACID 1 MG TABLET PO SCH (08:17)
[2017-10-13] MEDS: MULTIVITAMIN WITH MINERALS TABLET PO SCH (08:17)
[2017-10-13] MEDS: IRON SUCROSE COMPLEX 100 MG in SODIUM CHLORIDE 0.9% 50 ML IV SCH (08:17)
[2017-10-13] MEDS: FERROUS SULFATE 325 MG TABLET.DR PO SCH (08:23)
[2017-10-13] MEDS: CYCLOBENZAPRINE HCL 10 MG TABLET PO SCH (08:23)
[2017-10-13] MEDS: LABETALOL HCL 200 MG TABLET PO SCH (08:24)
[2017-10-13] MEDS: GABAPENTIN 300 MG CAPSULE PO SCH (09:00)
== END 2017-10-13 10:10 | disposition home or self-care (01) | DRG 673 ==
LOC: OBSVTOIN 15:10 → 3CH 15:10 → EDSTATUS 10-11 12:00 → 2BH 10-11 16:48
PROVIDERS: ADMIT Family Medicine; ATTEND Family Medicine
PROC: 047D3DZ Dilation of Left Common Iliac Artery with Intraluminal Device, Percutaneous Approach (ICD-10-PCS; principal; 2017-10-11)
PROC: B4141ZZ Fluoroscopy of Superior Mesenteric Artery using Low Osmolar Contrast (ICD-10-PCS; 2017-10-11)
PROC: B41B1ZZ Fluoroscopy of Other Intra-Abdominal Arteries using Low Osmolar Contrast (ICD-10-PCS; 2017-10-11)
PROC: 04713DZ Dilation of Celiac Artery with Intraluminal Device, Percutaneous Approach (ICD-10-PCS; 2017-10-11)
PROC: 04753DZ Dilation of Superior Mesenteric Artery with Intraluminal Device, Percutaneous Approach (ICD-10-PCS; 2017-10-11)
PROC: 047B3DZ Dilation of Inferior Mesenteric Artery with Intraluminal Device, Percutaneous Approach (ICD-10-PCS; 2017-10-11)
PROC: B41G1ZZ Fluoroscopy of Left Lower Extremity Arteries using Low Osmolar Contrast (ICD-10-PCS; 2017-10-11)
PROC: 30233N1 Transfusion of Nonautologous Red Blood Cells into Peripheral Vein, Percutaneous Approach (ICD-10-PCS; 2017-10-11)
DX: N17.9 Acute kidney failure, unspecified (principal); K55.059 Acute (reversible) ischemia of intestine, part and extent unspecified; I74.5 Embolism and thrombosis of iliac artery; K55.9 Vascular disorder of intestine, unspecified; I13.0 Hypertensive heart and chronic kidney disease with heart failure and stage 1 through stage 4 chronic kidney disease, or unspecified chronic kidney disease; E44.1 Mild protein-calorie malnutrition; E11.21 Type 2 diabetes mellitus with diabetic nephropathy; E11.40 Type 2 diabetes mellitus with diabetic neuropathy, unspecified; I50.9 Heart failure, unspecified; I11.0 Hypertensive heart disease with heart failure; E87.5 Hyperkalemia; I25.10 Atherosclerotic heart disease of native coronary artery without angina pectoris; Z95.5 Presence of coronary angioplasty implant and graft; E78.5 Hyperlipidemia, unspecified; D64.9 Anemia, unspecified; E11.22 Type 2 diabetes mellitus with diabetic chronic kidney disease; E11.51 Type 2 diabetes mellitus with diabetic peripheral angiopathy without gangrene; E11.65 Type 2 diabetes mellitus with hyperglycemia; E78.00 Pure hypercholesterolemia, unspecified; I65.21 Occlusion and stenosis of right carotid artery; N18.9 Chronic kidney disease, unspecified; Z79.4 Long term (current) use of insulin; Z79.899 Other long term (current) drug therapy; Z95.1 Presence of aortocoronary bypass graft; Z68.20 Body mass index [BMI] 20.0-20.9, adult
CPT/HCPCS: 36245; 36415; 37221; 37236; 37237; 71045; 75716; 75726; 76770; 80048; 80053; 80061; 81001; 82607; 82728; 82746; 82948; 83036; 84443; 85014; 85018; 85025; 85027; 85347; 85610; 85730; 86850; 86900; 86901; 86922; 93005; C1725; C1769; C1893; C1894; J1644; J1756; J1815; J2270; J3490; J7030; J7512; P9016; Q9967

== ENCOUNTER → 2017-10-26 | Outpatient (CLI) | payer OTHER ==
[~2017-10-26] MED LIST changes: -ASPI-1181 PO; -CILO100T PO; -FERS325 PO; +FOLI1TAB15 PO; +FURO40TA5 PO; -FURO40TA7 PO; -LISI10TA7 PO; +POTA99TA21 PO; +PRED10TA3 PO; -SIME80TA12 PO
[2017-10-26 10:38] LABS: INR 1.02 (0.85-1.15); PARTIAL THROMBOPLASTIN TIME 27.1 SEC (26.3-35.5); PROTHROMBIN TIME 10.7 SEC (9.6-11.6)
== END | disposition home or self-care (01) ==
LOC: RAH 09:35
PROVIDERS: ATTEND Internal Medicine Cardiovascular Disease
DX: J90 Pleural effusion, not elsewhere classified (principal); R18.8 Other ascites; I10 Essential (primary) hypertension; E78.5 Hyperlipidemia, unspecified; E11.9 Type 2 diabetes mellitus without complications; Z87.891 Personal history of nicotine dependence; Z98.890 Other specified postprocedural states; Z79.899 Other long term (current) drug therapy; I65.21 Occlusion and stenosis of right carotid artery; I73.9 Peripheral vascular disease, unspecified
CPT/HCPCS: 32555; 36415; 71045; 76705; 85610; 85730

== ENCOUNTER 2017-12-12 13:56 | Emergency (ER) | payer OTHER ==
[2017-12-12 14:32] LABS: BASOPHILS % (AUTO) 0.8 % (0.0-5.0); EOSINOPHILS % (AUTO) 1.4 % (0.0-8.0); HEMATOCRIT 31.3 % (42-54); LYMPHOCYTES % (AUTO) 14.3 % (21.0-51.0); MEAN CORPUSCULAR HEMOGLOBIN 25.3 pg (27.0-33.0); MEAN CORPUSCULAR HGB CONC 32.7 g/dL (32.0-36.0); MEAN CORPUSCULAR VOLUME 77.3 fL (79-99); MONOCYTES % (AUTO) 9.3 % (3.0-13.0); NEUTROPHILS % (AUTO) 74.2 % (40.0-77.0); PLATELET COUNT (AUTO) 287 K/uL (130-400); RED BLOOD CELL COUNT(AUTO) 4.04 MIL/uL (4.50-6.20); RED CELL DISTRIBUTION WIDTH 21.3 % (11.0-15.5); WHITE BLOOD COUNT (AUTO) 7.4 K/uL (4.8-10.8)
[2017-12-12 14:45] LABS: CREATININE 1.7 mg/dL (0.5-1.5); POTASSIUM 4.6 mmol/L (3.5-5.1)
[2017-12-12 15:00] LABS: ALBUMIN 3.1 g/dL (3.5-5.0); BILIRUBIN,TOTAL 0.4 mg/dL (0.2-1.0); CREATINE KINASE MB 0.9 ng/mL (0.5-3.6); TOTAL PROTEIN, SERUM 7.5 g/dL (6.0-8.3)
[2017-12-12 15:13] LABS: B-TYPE NATRIURETIC PEPTIDE 1620 pg/mL (0-100)
[2017-12-12 16:02] LABS: INR 1.05 (0.85-1.15); PARTIAL THROMBOPLASTIN TIME 29.3 SEC (26.3-35.5)
[2017-12-12] MEDS ORDERED: FUROSEMIDE 10 MG/ML 4ML VIAL ONE (16:07)
== END 2017-12-12 17:30 | disposition home or self-care (01) ==
LOC: EDH 13:56
DX: J90 Pleural effusion, not elsewhere classified (principal); I11.0 Hypertensive heart disease with heart failure; I50.9 Heart failure, unspecified; E78.5 Hyperlipidemia, unspecified; I25.10 Atherosclerotic heart disease of native coronary artery without angina pectoris; E11.9 Type 2 diabetes mellitus without complications; Z79.4 Long term (current) use of insulin; Z87.891 Personal history of nicotine dependence
CPT/HCPCS: 32555; 36415; 71045 ×2; 71046; 80053; 82550; 82553; 83880; 84484; 85025; 85610; 85730; 93005; 96374; 99285; J1940

== ENCOUNTER 2018-04-26 06:12 | Day surgery (SDC) | payer OTHER ==
[~2018-04-26 06:12] MED LIST changes: +CHOL400T4 PO; +CYAN10009 PO; -GABA-533 PO; +GABA300C PO; -GLIP10TA9 PO; -INSU100V12 SQ; -METF10004 PO; +NIFE30TA91 PO; -OMEP20CA10 PO; +PANT20TA12 PO; +PIOG30TA70 PO; -POTA99TA21 PO; -PRED10TA3 PO; -SIMV40TA5 PO; +SIMV80TA7 PO
[2018-04-26] MEDS ORDERED: SODIUM CHLORIDE 0.9% 1000ML 1,000 ML IV ONE (07:04)
[2018-04-26 07:10] VITALS: BP 132/53
[2018-04-26] MEDS ORDERED: IOHEXOL-350 75 ML VIAL IV ONE (12:34)
[2018-05-16] MEDS ORDERED: METF-446 PO (18:29)
[2018-05-16] MEDS ORDERED: SPIR100T5 PO (18:29)
[2018-05-16] MEDS ORDERED: ACET-66 PO (18:29)
[2018-05-16] MEDS ORDERED: INSU100V12 SQ (18:29)
[2018-05-16] MEDS ORDERED: TYLENOL PM PO (18:29)
[2018-05-16] MEDS ORDERED: GABA-533 PO (18:29)
[2018-05-16] MEDS ORDERED: ALBU8.5H8 IH (18:29)
[2018-05-16] MEDS ORDERED: GLIP10TA9 PO (18:29)
[2018-05-19] MEDS ORDERED: MAGOX PO (09:43)
[2018-05-19] MEDS ORDERED: ASCO500T10 PO (09:43)
[2018-05-19] MEDS ORDERED: FURO40TA7 PO (09:43)
[2018-05-19] MEDS ORDERED: FERR500P12 MC (09:43)
== END 2018-04-26 13:20 | disposition home or self-care (01) ==
LOC: DAH 06:12 → EDSTATUS 08:00 → DAH 13:20
PROVIDERS: ATTEND Internal Medicine Cardiovascular Disease
DX: I65.23 Occlusion and stenosis of bilateral carotid arteries (principal)
CPT/HCPCS: 70498; 82948 ×2; 96360; 96361; J7030; Q9967

== ENCOUNTER 2018-07-19 06:41 | Day surgery (SDC) | payer OTHER ==
[~2018-07-19] VITALS: Ht 180.3 cm; Wt 58.9 kg
[~2018-07-19 06:41] MED LIST changes: +ACET-66 PO; -ALBU6.7H IH; +ALBU8.5H8 IH; +ASCO500T10 PO; -BUDE10.2 IH; -CLON0.1T PO; -DOCU100C33 PO; -FERR325T22 PO; +FERR500P12 MC; +FURO40TA7 PO; +GABA-533 PO; -GABA300C PO; +GLIP10TA9 PO; +INSU100V12 SQ; +MAGOX PO; +METF-446 PO; -NIFE30TA91 PO; -PIOG30TA70 PO; -SIMV80TA7 PO; +SIMV80TA91 PO; +SPIR100T5 PO; +TYLENOL PM PO
[2018-07-19 08:06] VITALS: BP 216/73
[2018-07-19] MEDS ORDERED: LABE200T5 PO (08:55)
[2018-07-19] MEDS ORDERED: SODPOLY15G PO (08:55)
[2018-07-19] MEDS ORDERED: TRAM100T34 PO (08:55)
[2018-07-19] MEDS ORDERED: PROPOFOL 10 MG/ML 20ML VIAL IV ONE (09:10)
[2018-07-19] MEDS ORDERED: LIDOCAINE HCL 1% 20 ML VIAL ONE (09:11)
[2018-07-19 09:29] VITALS: BP 153/64
[2018-07-19 09:34] VITALS: BP 160/65
[2018-07-19 09:39] VITALS: BP 165/73
[2018-07-19 09:43] VITALS: BP 177/76
[2018-07-19 09:48] VITALS: BP 164/68
== END 2018-07-19 10:06 | disposition home or self-care (01) ==
LOC: ENDO 06:41 → DAH 06:41 → ENDO 10:06
PROVIDERS: ATTEND Internal Medicine
DX: D50.9 Iron deficiency anemia, unspecified (principal); K31.89 Other diseases of stomach and duodenum; K44.9 Diaphragmatic hernia without obstruction or gangrene; I10 Essential (primary) hypertension; E78.5 Hyperlipidemia, unspecified; E11.9 Type 2 diabetes mellitus without complications; J44.9 Chronic obstructive pulmonary disease, unspecified; D64.9 Anemia, unspecified; M81.0 Age-related osteoporosis without current pathological fracture; J90 Pleural effusion, not elsewhere classified; I25.10 Atherosclerotic heart disease of native coronary artery without angina pectoris; K21.9 Gastro-esophageal reflux disease without esophagitis; K57.30 Diverticulosis of large intestine without perforation or abscess without bleeding; Z79.899 Other long term (current) drug therapy; I12.9 Hypertensive chronic kidney disease with stage 1 through stage 4 chronic kidney disease, or unspecified chronic kidney disease; E11.22 Type 2 diabetes mellitus with diabetic chronic kidney disease; N18.9 Chronic kidney disease, unspecified; Z79.4 Long term (current) use of insulin; Z79.84 Long term (current) use of oral hypoglycemic drugs; Z95.5 Presence of coronary angioplasty implant and graft
CPT/HCPCS: 36415; 44361; 82948 ×2; 84132; 88305; 88312; 93005; A4606; J2704

== ENCOUNTER 2018-07-21 07:26 | Inpatient (IN) | payer OTHER ==
[~2018-07-21] VITALS: Ht 180.3 cm; Wt 58.0 kg
[2018-07-21] VITALS (35 sets, daily range): BP systolic 119–201; BP diastolic 59–93
[~2018-07-21 07:26] MED LIST changes: +LABE200T5 PO; +SODPOLY15G PO; +TRAM100T34 PO
[2018-07-21] MEDS ORDERED: FUROSEMIDE 10 MG/ML 2ML VIAL ONE (07:55)
[2018-07-21] MEDS ORDERED: FUROSEMIDE 10 MG/ML 4ML VIAL ONE (07:55)
[2018-07-21] MEDS ORDERED: NITROGLYCERIN 1GM/1 INCH PACKET TD ONE (07:55)
[2018-07-21 07:58] LABS: BASOPHILS % (AUTO) 0.2 % (0.0-5.0); EOSINOPHILS % (AUTO) 0.1 % (0.0-8.0); HEMATOCRIT 26.6 % (42-54); LYMPHOCYTES % (AUTO) 4.5 % (21.0-51.0); MEAN CORPUSCULAR HEMOGLOBIN 24.5 pg (27.0-33.0); MEAN CORPUSCULAR HGB CONC 31.6 g/dL (32.0-36.0); MEAN CORPUSCULAR VOLUME 77.7 fL (79-99); MONOCYTES % (AUTO) 4.9 % (3.0-13.0); NEUTROPHILS % (AUTO) 90.3 % (40.0-77.0); PLATELET COUNT (AUTO) 448 K/uL (130-400); RED BLOOD CELL COUNT(AUTO) 3.43 MIL/uL (4.50-6.20); RED CELL DISTRIBUTION WIDTH 21.3 % (11.0-15.5); WHITE BLOOD COUNT (AUTO) 9.2 K/uL (4.8-10.8)
[2018-07-21 08:15] LABS: ALBUMIN 2.6 g/dL (3.5-5.0); BILIRUBIN,TOTAL 0.3 mg/dL (0.2-1.0); CREATININE 1.7 mg/dL (0.5-1.5); TOTAL PROTEIN, SERUM 7.6 g/dL (6.0-8.3)
[2018-07-21 08:17] LABS: POTASSIUM 2.6 mmol/L (3.5-5.1)
[2018-07-21 08:21] LABS: INR 1.08 (0.85-1.15); PARTIAL THROMBOPLASTIN TIME 26.7 SEC (26.3-35.5); PROTHROMBIN TIME 11.3 SEC (9.6-11.6)
[2018-07-21 08:47] LABS: B-TYPE NATRIURETIC PEPTIDE 1600 pg/mL (0-100)
[2018-07-21] MEDS ORDERED: POTASSIUM BICARB/CIT AC 25 MEQ TABLET.EFF ONE (08:51)
[2018-07-21 09:11] LABS: APPEARANCE,URINE Clear (CLEAR); BILIRUBIN,URINE Negative (NEGATIVE); COLOR,URINE Yellow (YELLOW); GLUCOSE, URINE (UA) Negative (NEGATIVE); KETONES,URINE Negative (NEGATIVE); LEUKOCYTE ESTERASE ,URINE Negative (NEGATIVE); NITRATE,URINE Negative (NEGATIVE); OCCULT BLOOD,URINE Trace (NEGATIVE); PROTEIN,URINE 300 (NEGATIVE); UROBILINOGEN,URINE 0.2 mg/dL (0.2-1.0)
[2018-07-21] MEDS ORDERED: ONDANSETRON HCL 4 MG/2 ML VIAL IV PRN (09:30)
[2018-07-21] MEDS ORDERED: NITROGLYCERIN 50 MG/D5% WATER 250 BOT IV PRN (09:30)
[2018-07-21] MEDS ORDERED: ACETAMINOPHEN 325 MG TAB PO PRN (09:30)
[2018-07-21] MEDS ORDERED: METHYLPREDNISOLONE SOD SUCC 125MG/2ML VIAL IV SCH (09:30)
[2018-07-21] MEDS ORDERED: POTASSIUM CHLORIDE 20 MEQ ERTAB PO PRN (09:45)
[2018-07-21] MEDS ORDERED: LIDOCAINE HCL-MPF 1% 2ML VIAL IVP PRN (09:45)
[2018-07-21] MEDS ORDERED: POTASSIUM CHLORIDE 10MEQ/100ML 100 ML IV PRN (09:45)
[2018-07-21 09:53] LABS: RBC,URINE 0-1 /HPF (0-1); WBC,URINE 0-1 /HPF (0-1)
[2018-07-21 09:54] LABS: BACTERIA,URINE Rare /HPF (None Seen); SQUAMOUS EPITHELIAL CELL,UR 0-2 /HPF (0-2)
[2018-07-21] MEDS ORDERED: NITROGLYCERIN 50 MG/D5% WATER 1 BOT ONE (10:08)
[2018-07-21] MEDS ORDERED: METHYLPREDNISOLONE SOD SUCC 125MG/2ML VIAL ONE (10:08)
[2018-07-21] MEDS ORDERED: PANTOPRAZOLE SODIUM 40 MG TABLET.DR PO SCH (10:15)
[2018-07-21] MEDS: LABETALOL HCL 200 MG TABLET PO SCH ×2 (11:00→21:14)
[2018-07-21] MEDS: FUROSEMIDE 10 MG/ML 4ML VIAL IV SCH ×2 (11:00→18:57)
[2018-07-21] MEDS ORDERED: IPRATROPIUM/ALBUTEROL SULFATE 3 ML SOLUTION IH ONE (11:01)
[2018-07-21] MEDS ORDERED: LABETALOL HCL 200 MG TABLET ONE (11:01)
--- NOTE | 2018-07-21 12:10 | NUR ---
RECEIVED PT FROM ER AND WAS ACCOMPANIED BY ER STAFF AND RESPIRATORY THERAPIST WITH THE BIPAP MACHINE PRESCRIBED. DR. BAJWA HERE AND ASSESSED PT AND WILL AWAIT FOR ORDERS.
[2018-07-21] MEDS: IPRATROPIUM/ALBUTEROL SULFATE 3 ML SOLUTION IH SCH ×3 (13:25→21:39)
[2018-07-21 13:30] LABS: TROPONIN I 0.04 ng/mL (0.00-0.06)
[2018-07-21] MEDS ORDERED: NICARDIPINE IN NACL, ISO-OSM 200 ML IV ONE ×2 (14:58→21:11)
[2018-07-21 17:20] LABS: CREATINE KINASE, TOTAL 58 U/L (21-232); MYOGLOBIN 80 ng/mL (10-92); TROPONIN I < 0.04 ng/mL (0.00-0.06)
[2018-07-21] MEDS ORDERED: ACETAMINOPHEN EXTRA STRENGTH 500 MG TABLET PO PRN (18:45)
--- NOTE | 2018-07-21 20:20 | NUR ---
ASSESSMENT: REPORT RECEIVED FROM FRANKIE CONTRERAS RN. PATIENT AA0 X 3 FOLLOWS COMMANDS, STRONG X 4 , LUNGS CLEAR, RESTING COMFORTABLY ON BIPAP 10/5 50 %, ABDOMEN SOFT, BOWEL SOUNDS ACTIVE. CARDENE INFUSING FOR BP CONTROL, AT BEDSIDE. PLAN DISCUSSED AND INSTRUCTED ON FLUID RESTRICTION,CALL VALLECILLO IN REACH.
[2018-07-21] MEDS ORDERED: PHARMACY COMMUNICATION MISC SCH (21:00)
[2018-07-21] MEDS ORDERED: FUROSEMIDE 10 MG/ML 4ML VIAL IVP SCH (21:00)
[2018-07-21] MEDS: TRAZODONE HCL 50 MG TAB PO SCH (21:13)
[2018-07-21] MEDS: SIMVASTATIN 20 MG TABLET PO SCH (21:14)
[2018-07-21] MEDS: GABAPENTIN 100 MG CAPSULE PO SCH (21:14)
[2018-07-21] MEDS: INSULIN GLARGINE 100 UNITS/ML 10 ML VIAL SQ SCH (21:41)
[2018-07-21] MEDS: INSULIN HUMULIN R 100 UNIT/ML 3ML SQ SCH (21:43)
[2018-07-21] MEDS: POTASSIUM CHLORIDE 10% ELIXIR 20 MEQ/15 ML UDCUP PO PRN (21:50)
[2018-07-21] MEDS: NICARDIPINE 20 MG/200 ML IV SCH (23:21)
[2018-07-22] VITALS (29 sets, daily range): BP systolic 127–176; BP diastolic 58–81
[2018-07-22] MEDS: POTASSIUM CHLORIDE 10% ELIXIR 20 MEQ/15 ML UDCUP PO PRN ×7 (00:19→23:34)
[2018-07-22] MEDS: METHYLPREDNISOLONE SOD SUCC 40MG/ML 1ML IVP SCH ×3 (01:48→18:16)
[2018-07-22] MEDS: IPRATROPIUM/ALBUTEROL SULFATE 3 ML SOLUTION IH SCH ×6 (02:06→22:15)
--- NOTE | 2018-07-22 02:22 | NUR ---
Large BiPap mask was replaced for a Medium as per Pt request. Addendum: 07/22/18 at 0224 by REJI FLETCHER RT Amended: Links added.
[2018-07-22 03:47] LABS: ABG BASE EXCESS 5.1 mmol/L (-2.0-3.0); ABG HCO3 28.6 mmol/L (21.0-28.0); ABG OXYGEN SATURATION 99.2 % (95.0-99.0); ABG PCO2 38 mmHg (35-48)
[2018-07-22 03:48] LABS: BASOPHILS % (AUTO) 0.3 % (0.0-5.0); HEMATOCRIT 24.7 % (42-54); LYMPHOCYTES % (AUTO) 6.8 % (21.0-51.0); MEAN CORPUSCULAR HEMOGLOBIN 25.1 pg (27.0-33.0); MEAN CORPUSCULAR HGB CONC 32.5 g/dL (32.0-36.0); MEAN CORPUSCULAR VOLUME 77.2 fL (79-99); MONOCYTES % (AUTO) 5.4 % (3.0-13.0); NEUTROPHILS % (AUTO) 87.5 % (40.0-77.0); PLATELET COUNT (AUTO) 387 K/uL (130-400); RED CELL DISTRIBUTION WIDTH 21.1 % (11.0-15.5); WHITE BLOOD COUNT (AUTO) 5.6 K/uL (4.8-10.8)
[2018-07-22 04:10] LABS: ALBUMIN 2.3 g/dL (3.5-5.0); BILIRUBIN,TOTAL 0.3 mg/dL (0.2-1.0); CREATININE 1.7 mg/dL (0.5-1.5); MAGNESIUM 1.4 mg/dL (1.80-2.40); PHOSPHORUS 3.3 mg/dL (2.5-4.9); POTASSIUM 3.1 mmol/L (3.5-5.1); THYROID STIMULATING HORMONE 0.52 uIU/mL (0.36-3.74); TOTAL PROTEIN, SERUM 7.1 g/dL (6.0-8.3)
[2018-07-22] MEDS: FUROSEMIDE 10 MG/ML 4ML VIAL IV SCH ×3 (04:17→18:18)
[2018-07-22] MEDS: INSULIN HUMULIN R 100 UNIT/ML 3ML SQ SCH ×4 (06:37→20:56)
[2018-07-22] MEDS: NICARDIPINE 20 MG/200 ML IV SCH (07:51)
[2018-07-22] MEDS: GABAPENTIN 100 MG CAPSULE PO SCH ×2 (07:55→20:43)
[2018-07-22] MEDS: FOLIC ACID 1 MG TABLET PO SCH (07:55)
[2018-07-22] MEDS: PANTOPRAZOLE SODIUM 40 MG TABLET.DR PO SCH (07:55)
[2018-07-22] MEDS: LABETALOL HCL 200 MG TABLET PO SCH ×2 (07:55→20:43)
[2018-07-22] MEDS: CLOPIDOGREL BISULFATE 75 MG TAB PO SCH (07:55)
[2018-07-22] MEDS: ENOXAPARIN SODIUM 30 MG/0.3 ML SQ SCH (07:56)
[2018-07-22] MEDS: MORPHINE SULFATE 2 MG/ML 1ML SYG IV PRN ×2 (10:04→19:25)
[2018-07-22] MEDS ORDERED: LOSARTAN 50 MG TABLET PO SCH (13:30)
[2018-07-22] MEDS: AMLODIPINE BESYLATE 5 MG TAB PO SCH (14:13)
[2018-07-22] MEDS: MAGNESIUM 2GM PREMIX 50ML 50 ML IV PRN ×2 (15:00→19:26)
[2018-07-22 18:32] LABS: MAGNESIUM 1.9 mg/dL (1.80-2.40); POTASSIUM 3.8 mmol/L (3.5-5.1)
--- NOTE | 2018-07-22 19:06 | NUR ---
ASSESSMENT: REPORT RECEIVED FROM SUSI COWAN. PATIENT AA0 X 3 FOLLOWS COMMANDS, STRONG X 4 , LUNGS CLEAR,2L NC, RESTING COMFORTABLY IN BED, TALKATIVE , ABDOMEN SOFT, BOWEL SOUNDS ACTIVE. PEDAL PULSES PALPABLE /WEAK, SCDS ON , FLUID RESTRICTION , ASSESSMENT COMPLETED. CALL VALLECILLO IN REACH.
--- NOTE | 2018-07-22 20:40 | NUR ---
JANET GONZALES AT [facility] W PT /FAMILY, AAOX3, FELA DAMON, LIVES W SPOUSE, O2, NEBS, DME AVAILABLE, STELINOR DOES NOT LIKE OT USE THEM, JUST MY CANE; DOES NOT WANT PROVIDERS OR HOME HEALHT; IS FOLLOWED BY Avis MONTESINOS AT THE [facility]. PLAN IS HOME, WILL FOLLOW NEEDED Addendum: 07/22/18 at 2041 by BHARATH LOO RN CM Amended: Links added.
[2018-07-22] MEDS: TRAZODONE HCL 50 MG TAB PO SCH (20:43)
[2018-07-22] MEDS: SIMVASTATIN 20 MG TABLET PO SCH (20:44)
[2018-07-22] MEDS: INSULIN GLARGINE 100 UNITS/ML 10 ML VIAL SQ SCH (20:55)
[2018-07-23] VITALS (15 sets, daily range): BP systolic 136–187; BP diastolic 53–85
[2018-07-23] MEDS: METHYLPREDNISOLONE SOD SUCC 40MG/ML 1ML IVP SCH ×2 (01:21→09:36)
[2018-07-23] MEDS: IPRATROPIUM/ALBUTEROL SULFATE 3 ML SOLUTION IH SCH ×6 (02:02→22:00)
[2018-07-23] MEDS: FUROSEMIDE 10 MG/ML 4ML VIAL IV SCH ×2 (03:17→09:36)
[2018-07-23 03:49] LABS: CREATININE 1.9 mg/dL (0.5-1.5); POTASSIUM 4.5 mmol/L (3.5-5.1)
[2018-07-23 03:51] LABS: HEMATOCRIT 23.5 % (42-54); PLATELET COUNT (AUTO) 388 K/uL (130-400); RED BLOOD CELL COUNT(AUTO) 3.01 MIL/uL (4.50-6.20); RED CELL DISTRIBUTION WIDTH 21.3 % (11.0-15.5)
[2018-07-23 04:07] LABS: BAND NEUTROPHILS % (MANUAL) 5 % (0-2); LYMPHOCYTES % (MANUAL) 6 % (22-44); MAN.DIFF COMMENT-IMPRESSION MANUAL DIFFERENTIAL; MONOCYTES % (MANUAL) 3 % (2-9); PLATELET MORPHOLOGY COMMENT ADEQUATE; SEGMENTED NEUTROPHILS % 86 % (40-70)
[2018-07-23] MEDS: INSULIN HUMULIN R 100 UNIT/ML 3ML SQ SCH ×4 (06:40→20:40)
[2018-07-23] MEDS: PANTOPRAZOLE SODIUM 40 MG TABLET.DR PO SCH (08:35)
[2018-07-23] MEDS: AMLODIPINE BESYLATE 5 MG TAB PO SCH (08:35)
[2018-07-23] MEDS: LABETALOL HCL 200 MG TABLET PO SCH ×2 (08:35→19:56)
[2018-07-23] MEDS: GABAPENTIN 100 MG CAPSULE PO SCH ×2 (08:35→19:57)
[2018-07-23] MEDS: CLOPIDOGREL BISULFATE 75 MG TAB PO SCH (08:35)
[2018-07-23] MEDS: FOLIC ACID 1 MG TABLET PO SCH (08:35)
[2018-07-23] MEDS: ENOXAPARIN SODIUM 30 MG/0.3 ML SQ SCH (09:32)
[2018-07-23] MEDS: LOSARTAN 50 MG TABLET PO SCH (09:36)
[2018-07-23] MEDS: PREDNISONE 10 MG TABLET PO SCH (13:08)
[2018-07-23] MEDS: FUROSEMIDE 40 MG TABLET PO SCH (16:52)
[2018-07-23] MEDS: SIMVASTATIN 20 MG TABLET PO SCH (19:56)
[2018-07-23] MEDS: TRAZODONE HCL 50 MG TAB PO SCH (19:57)
[2018-07-23] MEDS: INSULIN GLARGINE 100 UNITS/ML 10 ML VIAL SQ SCH (20:38)
[2018-07-23] MEDS: MORPHINE SULFATE 2 MG/ML 1ML SYG IV PRN (20:45)
--- NOTE | 2018-07-23 20:45 | NUR ---
PAIN PT SEEN SITTING DOWN IN BED, CLAIMS OF BACK PAINS. DUE INSULIN DOSES ADMINISTERED, TOLERATED WELL. MORPHINE IV GIVEN FOR PAINS. KEPT COMFORTABLE IN BED. WILL RE-ASSESS PT. FALL PRECAUTIONS RE-ITERATED.
[2018-07-24] VITALS: BP 160/76
[2018-07-24] MEDS: HYDRALAZINE HCL 20 MG/ML VIAL IV PRN ×2 (00:19→04:58)
--- NOTE | 2018-07-24 00:20 | NUR ---
BP PT'S QM=275/91, HR=94. PT ON BIPAP AT THIS TIME. PT CLAIMS OF INTERMITTENT PAINS ON HIS UPPER ABDOMEN AND RIB AREA. PT REFUSED MORPHINE AND TYLENOL WHEN OFFERED. PT CLAIMS HE WILL BE OK FOR NOW. WILL MONITOR PT.
[2018-07-24] MEDS: IPRATROPIUM/ALBUTEROL SULFATE 3 ML SOLUTION IH SCH ×4 (02:17→13:44)
--- NOTE | 2018-07-24 02:25 | NUR ---
MASK RT INFORMS ELECTRICAL CONTACTS ADJUSTER THAT PT REQUESTED TO BE ON THE MASK SINCE HIS NOSE IS ALREADY IRRITATED BY THE NASAL CANNULA. ELECTRICAL CONTACTS ADJUSTER WAS INFORMED THAT RT HAD PLACED PT ON 30% VENTI MASK FOR NOW.
--- NOTE | 2018-07-24 02:33 | NUR ---
PAGED BROCK [employer] NETSUITE DEVELOPER FOR HOSPITALIST, PAGED VIA ANSWERING SERVICE. PA CALLED BACK AND INFORMED ABOUT PT'S PAINS. NEW MED ORDER GIVEN. WILL MONITOR PT.
[2018-07-24] MEDS ORDERED: KETOROLAC TROMETHAMINE 15MG/ML IV PRN (03:00)
[2018-07-24] MEDS ORDERED: DIAZEPAM 5 MG TABLET PO PRN (03:00)
[2018-07-24] MEDS ORDERED: KETOROLAC TROMETHAMINE 15MG/ML ONE (03:04)
[2018-07-24] MEDS ORDERED: DIAZEPAM 5 MG TABLET ONE (03:05)
[2018-07-24 04:00] VITALS: BP 166/78
--- NOTE | 2018-07-24 05:30 | NUR ---
ROUNDS PT RESTING WELL. NO DISTRESS NOTED AT THIS TIME. KEPT RESTED. FOR MORE CARE.
[2018-07-24 05:38] LABS: HEMATOCRIT 24.2 % (42-54); MEAN CORPUSCULAR HEMOGLOBIN 24.3 pg (27.0-33.0); MEAN CORPUSCULAR HGB CONC 31.3 g/dL (32.0-36.0); MEAN CORPUSCULAR VOLUME 77.8 fL (79-99); PLATELET COUNT (AUTO) 393 K/uL (130-400); RED BLOOD CELL COUNT(AUTO) 3.11 MIL/uL (4.50-6.20); RED CELL DISTRIBUTION WIDTH 21.5 % (11.0-15.5); WHITE BLOOD COUNT (AUTO) 11.2 K/uL (4.8-10.8)
[2018-07-24 05:55] LABS: CREATININE 1.8 mg/dL (0.5-1.5); POTASSIUM 3.6 mmol/L (3.5-5.1)
[2018-07-24] MEDS: INSULIN HUMULIN R 100 UNIT/ML 3ML SQ SCH ×2 (06:04→16:31)
--- NOTE | 2018-07-24 06:20 | NUR ---
[facility] ASKED ESTHER VP AD SALES WEST FOR HOSPITALIST, ON THE FLOOR MAKING ROUNDS. REFERRED PT'S ELECTROLYTES, KCL=3.6 BUT WITH ELEVATED BUN AND CREATININE. STATED TO HOLD THE KCL PROTOCOL YET AND HE WILL REFER TO DR PALOMO.
--- NOTE | 2018-07-24 06:42 | NUR ---
CLOTH EXAMINER MACHINE AJ, CLOTH EXAMINER MACHINE FOR HOSPITALIST, IN TO SEE PT. NEW ORDERS GIVEN, PLEASE REFER TO CPOE.
[2018-07-24] MEDS: FOLIC ACID 1 MG TABLET PO SCH (08:21)
[2018-07-24] MEDS: PANTOPRAZOLE SODIUM 40 MG TABLET.DR PO SCH (08:22)
[2018-07-24] MEDS: PREDNISONE 10 MG TABLET PO SCH (08:22)
[2018-07-24] MEDS: LABETALOL HCL 200 MG TABLET PO SCH (08:22)
[2018-07-24] MEDS: FUROSEMIDE 40 MG TABLET PO SCH (08:23)
[2018-07-24] MEDS: LOSARTAN 50 MG TABLET PO SCH (08:23)
[2018-07-24] MEDS: GABAPENTIN 100 MG CAPSULE PO SCH (08:24)
[2018-07-24] MEDS: CLOPIDOGREL BISULFATE 75 MG TAB PO SCH (08:24)
[2018-07-24] MEDS: ENOXAPARIN SODIUM 30 MG/0.3 ML SQ SCH (08:25)
[2018-07-24 08:51] VITALS: BP 155/77
[2018-07-24] MEDS ORDERED: AMLODIPINE BESYLATE 5 MG TAB PO SCH (09:00)
--- NOTE | 2018-07-24 10:00 | NUR ---
BULLET SWAGING MACHINE ADJUSTER ANTONIETA AMADOR, AWARE OF CHEST X RAY ABNORMAL REPORT STATES ITS OKAY WILL DC PATIENT HOME.
--- NOTE | 2018-07-24 10:30 | NUR ---
KO HINSON AWARE OF CLEARANCE FROM HOSPITALIST STATES OKAY WILL SEE PATIENT BEFORE PLACING DC ORDER AFTER IM DONE SEEING PATIENTS.
[2018-07-24 11:36] VITALS: BP 156/67
[2018-07-24] MEDS ORDERED: LABE200T5 PO (14:26)
[2018-07-24] MEDS ORDERED: LOSA50TA2 PO (14:26)
[2018-07-24] MEDS ORDERED: AMLO5TAB4 PO (14:26)
--- NOTE | 2018-07-24 15:10 | NUR ---
PATIENT DISCHARGED HOME USING TEACH BACK TECHNIQUE RE; NEW MEDS, HOME MEDS, S/S TO WATCH FOR FOR CHF AND WHEN TO CALL MD OR 911. FOLLOW UPS. AOX3, IV OUT INTACT, TELE REMOVED. DENIES ANY QUESTIONS. FOLLOW UP WITH DR. CHRISTINA, THE OFFICE WILL CALL YOUR WITH YOUR APPOINTMENT. FOLLOW UP WITH DR. MAGDALENO ON 08/04/2018 AT 12:30PM, CALL IF UNABLE TO ATTEND APPOINTMENT AT PHONE; [phone]. CALL 911 IF SHORTNESS OF BREATH OR CHEST PAIN DOES NOT RESOLVE WITH REST. INSTRUCTIONS TO FOLLOW REGARDING CONGESTIVE HEART FAILURE WILL BE ALSO PRINTED OUT FOR YOU AT DISCHARGE TO PREVENT ANY EXACCERBATION. PRESCRIPTIONS GIVEN TO YOU AT DISCHARGE WELL MAKE SURE TO BUY THEM AT PHARMACY OF CHOICE.
== END 2018-07-24 16:10 | disposition home or self-care (01) | DRG 291 ==
LOC: EDH 07:26 → EDHIP 09:28 → 2BH 10:40 → 3AH 07-23 13:14
PROVIDERS: ADMIT Internal Medicine; ATTEND Internal Medicine
PROC: 5A09357 Assistance with Respiratory Ventilation, Less than 24 Consecutive Hours, Continuous Positive Airway Pressure (ICD-10-PCS; principal; 2018-07-21)
PROC: 5A09357 Assistance with Respiratory Ventilation, Less than 24 Consecutive Hours, Continuous Positive Airway Pressure (ICD-10-PCS; 2018-07-24)
DX: I13.0 Hypertensive heart and chronic kidney disease with heart failure and stage 1 through stage 4 chronic kidney disease, or unspecified chronic kidney disease (principal); I50.33 Acute on chronic diastolic (congestive) heart failure; J96.20 Acute and chronic respiratory failure, unspecified whether with hypoxia or hypercapnia; N17.9 Acute kidney failure, unspecified; E87.1 Hypo-osmolality and hyponatremia; I16.1 Hypertensive emergency; J44.1 Chronic obstructive pulmonary disease with (acute) exacerbation; N18.3 Chronic kidney disease, stage 3 (moderate); E78.5 Hyperlipidemia, unspecified; I25.10 Atherosclerotic heart disease of native coronary artery without angina pectoris; D46.4 Refractory anemia, unspecified; D50.9 Iron deficiency anemia, unspecified; E11.51 Type 2 diabetes mellitus with diabetic peripheral angiopathy without gangrene; E11.22 Type 2 diabetes mellitus with diabetic chronic kidney disease; E11.21 Type 2 diabetes mellitus with diabetic nephropathy; F17.200 Nicotine dependence, unspecified, uncomplicated; E87.6 Hypokalemia; E83.42 Hypomagnesemia; Z82.49 Family history of ischemic heart disease and other diseases of the circulatory system; Z82.3 Family history of stroke; Z95.820 Peripheral vascular angioplasty status with implants and grafts; Z95.5 Presence of coronary angioplasty implant and graft
CPT/HCPCS: 36415; 36600; 71045; 80048; 80053; 81001; 82550; 82803; 82948; 83605; 83735; 83874; 83880; 84100; 84132; 84443; 84484; 85025; 85027; 85610; 85730; 93005; 93306; 93308; 94640; 94660; 94664; 99291; G0378; J0360; J1650; J1815; J1885; J1940; J2405; J2920; J2930; J3475; J3490; J7512

== ENCOUNTER 2018-08-02 02:11 | Inpatient (IN) | payer OTHER | END 2018-08-04 11:00 | disposition home or self-care (01) | LOC: EDH 02:11 → EDHIP 04:51 → 2AH 18:37 | DX: I13.0 Hypertensive heart and chronic kidney disease with heart failure and stage 1 through stage 4 chronic kidney disease, or unspecified chronic kidney disease (principal); I50.33 Acute on chronic diastolic (congestive) heart failure; E87.1 Hypo-osmolality and hyponatremia; N17.9 Acute kidney failure, unspecified; R09.02 Hypoxemia; D63.8 Anemia in other chronic diseases classified elsewhere; E11.22 Type 2 diabetes mellitus with diabetic chronic kidney disease; I25.10 Atherosclerotic heart disease of native coronary artery without angina pectoris; N18.3 Chronic kidney disease, stage 3 (moderate); D50.9 Iron deficiency anemia, unspecified; E83.42 Hypomagnesemia ==

== ENCOUNTER 2018-09-10 18:50 | Inpatient (IN) | payer OTHER | END 2018-09-15 15:13 | LOC: EDH 18:50 → 2AH 09-12 → EDHIP 22:12 | DX: A41.9 Sepsis, unspecified organism (principal); J18.9 Pneumonia, unspecified organism; I50.33 Acute on chronic diastolic (congestive) heart failure; J96.01 Acute respiratory failure with hypoxia; N18.6 End stage renal disease; J44.0 Chronic obstructive pulmonary disease with (acute) lower respiratory infection; D62 Acute posthemorrhagic anemia; I13.2 Hypertensive heart and chronic kidney disease with heart failure and with stage 5 chronic kidney disease, or end stage renal disease; J44.1 Chronic obstructive pulmonary disease with (acute) exacerbation; Y95 Nosocomial condition; E11.22 Type 2 diabetes mellitus with diabetic chronic kidney disease ==

== ENCOUNTER 2018-09-29 01:43 | Inpatient (IN) | payer MEDICARE, OTHER | END 2018-09-30 19:30 | disposition home or self-care (01) | LOC: 3AH 01:43 | DX: J44.9 Chronic obstructive pulmonary disease, unspecified (principal); J96.11 Chronic respiratory failure with hypoxia; I50.32 Chronic diastolic (congestive) heart failure; I13.0 Hypertensive heart and chronic kidney disease with heart failure and stage 1 through stage 4 chronic kidney disease, or unspecified chronic kidney disease; E44.0 Moderate protein-calorie malnutrition; D63.8 Anemia in other chronic diseases classified elsewhere; N18.3 Chronic kidney disease, stage 3 (moderate); E11.22 Type 2 diabetes mellitus with diabetic chronic kidney disease ==

== ENCOUNTER 2018-10-12 19:49 | Inpatient (IN) | payer OTHER ==
[~2018-10-12] VITALS: Ht 180.3 cm; Wt 50.8 kg
[~2018-10-12 19:49] MED LIST changes: +ACET-2900 PO; -ACET-66 PO; -ALBU8.5H8 IH; +AMLO10TA7 PO; -ASCO500T10 PO; +BUDE0.5A3 IH; -CHOL400T4 PO; +CLON0.1T PO; -CLOP75TA14 PO; -CYAN10009 PO; -CYCL10TA7 PO; -FERR500P12 MC; -FOLI1TAB15 PO; -FURO40TA5 PO; -GABA-533 PO; +GABA600T10 PO; -INSU100V12 SQ; -LABE300T2 PO; +LIDOP TP; +LUBI24CA2 PO; -MAGOX PO; -METF-446 PO; +MULT-1192 PO; -MULT-1258 PO; -PANT20TA12 PO; -SIMV80TA91 PO; -SODPOLY15G PO; -SPIR100T5 PO; -TRAM100T34 PO; -TRAZ-187 PO; -TYLENOL PM PO
[2018-10-12 20:09] LABS: BASOPHILS % (AUTO) 0.4 % (0.0-5.0); EOSINOPHILS % (AUTO) 0.3 % (0.0-8.0); LYMPHOCYTES % (AUTO) 5.6 % (21.0-51.0); MEAN CORPUSCULAR HEMOGLOBIN 28.9 pg (27.0-33.0); MEAN CORPUSCULAR VOLUME 85.1 fL (79-99); NEUTROPHILS % (AUTO) 88.7 % (40.0-77.0); NUCLEATED RED BLOOD CELLS 0.1 % (0.0-0.19); PLATELET COUNT (AUTO) 359 K/uL (130-400); RED BLOOD CELL COUNT(AUTO) 2.82 MIL/uL (4.50-6.20); RED CELL DISTRIBUTION WIDTH 20.8 % (11.0-15.5); WHITE BLOOD COUNT (AUTO) 5.7 K/uL (4.8-10.8)
[2018-10-12 20:19] LABS: CREATININE 1.6 mg/dL (0.5-1.5)
[2018-10-12 20:22] LABS: INR 1.04 (0.85-1.15); PARTIAL THROMBOPLASTIN TIME 31.2 SEC (26.3-35.5); PROTHROMBIN TIME 10.9 SEC (9.6-11.6)
[2018-10-12 20:24] LABS: ALBUMIN 2.2 g/dL (3.5-5.0); BILIRUBIN,TOTAL 0.4 mg/dL (0.2-1.0); TOTAL PROTEIN, SERUM 6.7 g/dL (6.0-8.3)
[2018-10-12 20:33] LABS: B-TYPE NATRIURETIC PEPTIDE 1020 pg/mL (0-100)
[2018-10-12] MEDS ORDERED: IPRATROPIUM/ALBUTEROL SULFATE 3 ML SOLUTION IH ONE (20:47)
[2018-10-12] MEDS ORDERED: ASPIRIN 325 MG TABLET ONE (20:48)
[2018-10-12] MEDS ORDERED: METHYLPREDNISOLONE SOD SUCC 125MG/2ML VIAL ONE (20:48)
[2018-10-12] MEDS ORDERED: ACETAMINOPHEN-CODEINE 300/30MG TAB ONE (20:48)
[2018-10-12 21:00] LABS: ABG BASE EXCESS 1.8 mmol/L (-2.0-3.0); ABG HCO3 25.6 mmol/L (21.0-28.0); ABG OXYGEN SATURATION 98.3 % (95.0-99.0); ABG PCO2 38 mmHg (35-48)
[2018-10-12] MEDS ORDERED: ONDANSETRON HCL 4 MG/2 ML VIAL IV PRN (23:00)
[2018-10-12] MEDS ORDERED: ACETAMINOPHEN 325 MG TAB PO PRN (23:00)
[2018-10-12] MEDS ORDERED: ZOSYN 3.375GM+NS 50ML 50 ML IV ONE (23:27)
[2018-10-12] MEDS ORDERED: MORPHINE SULFATE 2 MG/ML 1ML SYG ONE (23:28)
[2018-10-13] VITALS (15 sets, daily range): BP systolic 142–192; BP diastolic 62–90
[2018-10-13] MEDS: IPRATROPIUM/ALBUTEROL SULFATE 3 ML SOLUTION IH SCH ×6 (01:58→21:49)
[2018-10-13] MEDS: METHYLPREDNISOLONE SOD SUCC 40MG/ML 1ML IVP SCH ×3 (06:32→21:34)
[2018-10-13] MEDS: INSULIN HUMULIN R 100 UNIT/ML 3ML SQ SCH ×4 (06:34→21:08)
[2018-10-13] MEDS: MORPHINE SULFATE 2 MG/ML 1ML SYG IV PRN ×4 (06:55→21:35)
--- NOTE | 2018-10-13 07:10 | NUR ---
Pt. remained stable at this time,medicated with Morphine for c/o right leg pain.Bedside report given to incoming NOD using SBAR ,pending US thoracentesis and pulmo consult at this time.
--- NOTE | 2018-10-13 07:45 | NUR ---
DR. CONTI IS IN TO SEE PATIENT.
[2018-10-13] MEDS ORDERED: LIDOCAINE HCL 1% 20 ML VIAL ONE (08:41)
--- NOTE | 2018-10-13 09:20 | NUR ---
RECEIVED PATIENT S/P LEFT THORACENTESIS. DRESSING TO LEFT LOWER BACK IS CLEAN, DRY, AND INTACT. NO TENDERNESS AROUND SITE. VS WILL BE MONITORED PER PROTOCOL.
--- NOTE | 2018-10-13 09:30 | NUR ---
U/S GD LT THORACENTESIS PROCEDURE PERFORMED BY DR Modesto HASSAN. PUNCTURE SITE LT LOWER BACK AND PATIENT TOLERATED PROCEDURE WELL. TOTAL REMOVED 300ML OF CLOUDY YELLOW FLUID. END OF PROCEDURE AT 0910. CATHETER REMOVED AND DRESSING APPLIED. NO BLEEDING NOTED. POST CHEST X-RAY TAKEN AND READ BY DR Modesto HASSAN. NO PNEUMOTHORAX SEEN. REPORT GIVEN TO Deangelo DEVINE RN AND PATIENT TRANSPORTED TO [facility] VIA W/C AT 0930. AAO X3 WITH NO C/O PAIN.
[2018-10-13] MEDS ORDERED: MAGNESIUM HYDROXIDE 30 ML/UDCUP PO SCH (09:45)
[2018-10-13] MEDS: FAMOTIDINE 20MG TAB 20 MG TAB PO SCH ×2 (10:07→20:57)
[2018-10-13] MEDS: FUROSEMIDE 10 MG/ML 4ML VIAL IVP SCH ×2 (10:08→20:57)
[2018-10-13] MEDS: ZOSYN 3.375GM+NS 50ML 50 ML IV SCH ×2 (10:08→16:14)
[2018-10-13] MEDS: ENOXAPARIN SODIUM 40 MG/0.4 ML SYRINGE SQ SCH (10:10)
--- NOTE | 2018-10-13 11:27 | NUR ---
Nutrition Intervention: Nutrition consult due to pt. appears cachectic. Pt. admitted with Dx of Chronic Pleural Effusion. Pt. reports has lost 4#(3% of UBW) within 3 days due to fluid loss. Pt. on Heart Healthy diet with good p.o. intake, as per pt. Pt. requesting Finely chopped meats due to has no teeth; requesting Glucerna supp. QD with dinner for added kcal to help with wt. gain. Labs reviewed(Alb 2.2, BUN 33, Creat 1.6, GFR 46, BG 283). LBM: 10/09/18. SR-18, gen. multiple scabbed lesions. BMI: 15.7, emaciated. Pt. educated on High Calorie diet and provided with education material. Pt. verbalized understanding. Recommendations: 1) Rec. High Calorie 75gm CCD Heart Healthy Finely chopped meats diet. 2) Rec. Glucerna supp. QD with dinner meal. 3) Continue to monitor pt's nutritional status. 4) Consult RD as nutrition concerns arise. Addendum: 10/13/18 at [address] Amended: Links added.
[2018-10-13] MEDS ORDERED: TRAMADOL HCL 50 MG TABLET PO PRN (12:15)
[2018-10-13] MEDS ORDERED: ACETAMINOPHEN 325 MG TAB PO PRN (12:15)
--- NOTE | 2018-10-13 15:47 | NUR ---
REYMUNDO PLAN PATIENT WITH PER MEDICAL RECORD. PATIENT LIVES WITH SPOUSE. USES A WALKER AND WHEEL CHAIR, 02 AT HOME. PATIENT PENDING POSSIBLE ALOK CATHETER. Addendum: 10/13/18 at 1549 by KUMAR FREEDMAN RN CM Amended: Links added.
[2018-10-13] MEDS: GLIPIZIDE 5 MG TABLET PO SCH (16:16)
--- NOTE | 2018-10-13 17:49 | NUR ---
SPOKE WITH DR. ELIZONDO AND INFORMED MD OF THE ORDER FOR PLEURX PLACEMENT FOR RECURRENT PLEURAL EFFUSION. PER MD, PROCEDURE WILL BE DONE ON TUESDAY OR IF PULMO WANTS TO D/C PATIENT HOME THIS , THIS WILL BE DONE OUTPATIENT.
--- NOTE | 2018-10-13 19:30 | NUR ---
SBAR REPORT HANDED TO NEREIDA COWAN. PATIENT WAS SEEN BY DR. JUANJO GUTIÉRREZ WHO ORDERED FOR PLEURX PLACEMENT BY RADIOLOGY. SEE NOTE REGARDING DR. ELIZONDO'S RECOMMENDATION. DR. BAJWA WAS CONSULTED FOR OPTIMIZATION OF HEART FAILURE MEDS. SAW PATIENT AND AGREED TO PLEURX PLACEMENT.
[2018-10-13] MEDS: LUBIPROSTONE 24 MCG CAP PO SCH (20:56)
[2018-10-13] MEDS: GABAPENTIN 300 MG CAPSULE PO SCH (20:56)
[2018-10-13] MEDS: LABETALOL HCL 200 MG TABLET PO SCH (20:57)
[2018-10-14] MEDS: IPRATROPIUM/ALBUTEROL SULFATE 3 ML SOLUTION IH SCH ×6 (01:29→21:23)
[2018-10-14] MEDS: ZOSYN 3.375GM+NS 50ML 50 ML IV SCH ×3 (01:49→16:18)
[2018-10-14] MEDS: MORPHINE SULFATE 2 MG/ML 1ML SYG IV PRN ×4 (01:54→21:38)
[2018-10-14 03:56] VITALS: BP 153/82
[2018-10-14 04:00] LABS: HEMATOCRIT 24.7 % (42-54); LYMPHOCYTES % (AUTO) 2.6 % (21.0-51.0); MEAN CORPUSCULAR HEMOGLOBIN 28.9 pg (27.0-33.0); MEAN CORPUSCULAR HGB CONC 33.7 g/dL (32.0-36.0); MEAN CORPUSCULAR VOLUME 85.7 fL (79-99); NEUTROPHILS % (AUTO) 94.4 % (40.0-77.0); PLATELET COUNT (AUTO) 367 K/uL (130-400); RED BLOOD CELL COUNT(AUTO) 2.88 MIL/uL (4.50-6.20); RED CELL DISTRIBUTION WIDTH 21.1 % (11.0-15.5); WHITE BLOOD COUNT (AUTO) 9.7 K/uL (4.8-10.8)
[2018-10-14 04:23] LABS: CREATININE 1.5 mg/dL (0.5-1.5); POTASSIUM 4.6 mmol/L (3.5-5.1)
[2018-10-14] MEDS: INSULIN HUMULIN R 100 UNIT/ML 3ML SQ SCH ×4 (06:02→21:52)
[2018-10-14] MEDS: METHYLPREDNISOLONE SOD SUCC 40MG/ML 1ML IVP SCH ×3 (06:20→21:37)
[2018-10-14] MEDS: GLIPIZIDE 5 MG TABLET PO SCH ×2 (06:20→16:29)
--- NOTE | 2018-10-14 06:43 | NUR ---
PATIENT ALERT AND ORIENTED. NO COMPLAINTS OF SOB. LUNG FINE CRACKLES. C/O PAIN TO LLE THROUGHOUT THE NIGHT. PATIENT REFUSED PO MEDICATION FOR PAIN. PATIENT STATED HE WOULD WAIT EVERY 4 HOURS FOR MORPHINE. PATIENT USING URINAL. NO RETENTION OR PAIN WITH URINATION. UPON ASSESSMENT ULCER TO SACRUM SEEN. PICTURE IN CHART. ALLEYVN IN PLACE.
[2018-10-14 07:42] VITALS: BP 160/78
[2018-10-14] MEDS: LIDOCAINE 5% TOPICAL PATCH TP SCH (09:00)
[2018-10-14] MEDS: MULTIVITAMIN TABLET PO SCH ×2 (09:00→21:36)
[2018-10-14] MEDS: ENOXAPARIN SODIUM 40 MG/0.4 ML SYRINGE SQ SCH (09:39)
[2018-10-14] MEDS: FAMOTIDINE 20MG TAB 20 MG TAB PO SCH ×2 (09:40→21:36)
[2018-10-14] MEDS: GABAPENTIN 300 MG CAPSULE PO SCH ×2 (09:40→21:36)
[2018-10-14] MEDS: LABETALOL HCL 200 MG TABLET PO SCH ×2 (09:40→21:36)
[2018-10-14] MEDS: AMLODIPINE BESYLATE 5 MG TAB PO SCH (09:40)
[2018-10-14] MEDS: LUBIPROSTONE 24 MCG CAP PO SCH ×2 (09:40→21:36)
[2018-10-14] MEDS: FUROSEMIDE 20 MG TABLET PO SCH ×2 (09:40→16:29)
[2018-10-14 11:36] VITALS: BP 171/77
[2018-10-14] MEDS: HYDRALAZINE HCL 20 MG/ML VIAL IV PRN (12:44)
[2018-10-14 16:22] VITALS: BP 138/62
[2018-10-14 19:00] VITALS: BP 154/68
[2018-10-14 23:00] VITALS: BP 155/74
[2018-10-15] MEDS: ZOSYN 3.375GM+NS 50ML 50 ML IV SCH ×3 (01:09→17:05)
[2018-10-15] MEDS: IPRATROPIUM/ALBUTEROL SULFATE 3 ML SOLUTION IH SCH ×6 (01:11→21:23)
[2018-10-15] MEDS: MORPHINE SULFATE 2 MG/ML 1ML SYG IV PRN ×5 (01:34→21:10)
[2018-10-15 03:00] VITALS: BP 164/75
[2018-10-15 04:36] LABS: BASOPHILS % (AUTO) 0.1 % (0.0-5.0); HEMATOCRIT 24.5 % (42-54); LYMPHOCYTES % (AUTO) 1.8 % (21.0-51.0); MEAN CORPUSCULAR HEMOGLOBIN 28.5 pg (27.0-33.0); MEAN CORPUSCULAR HGB CONC 33.4 g/dL (32.0-36.0); MEAN CORPUSCULAR VOLUME 85.2 fL (79-99); NEUTROPHILS % (AUTO) 96.1 % (40.0-77.0); PLATELET COUNT (AUTO) 377 K/uL (130-400); RED BLOOD CELL COUNT(AUTO) 2.87 MIL/uL (4.50-6.20); RED CELL DISTRIBUTION WIDTH 20.3 % (11.0-15.5); WHITE BLOOD COUNT (AUTO) 12.2 K/uL (4.8-10.8)
[2018-10-15 05:07] LABS: CREATININE 1.5 mg/dL (0.5-1.5); POTASSIUM 4.4 mmol/L (3.5-5.1)
--- NOTE | 2018-10-15 07:15 | NUR ---
Pt. remained resting at this time, bedside report given to incoming NOD using SBAR ,all questions answered. .Pt has been asking for pain medicine every 4 hrs this entire shift, for c/o severe left leg pain.
[2018-10-15] MEDS: INSULIN HUMULIN R 100 UNIT/ML 3ML SQ SCH ×4 (07:24→22:24)
[2018-10-15] MEDS: GLIPIZIDE 5 MG TABLET PO SCH ×2 (07:27→17:06)
[2018-10-15] MEDS: METHYLPREDNISOLONE SOD SUCC 40MG/ML 1ML IVP SCH ×3 (07:27→22:27)
[2018-10-15 07:34] VITALS: BP 146/77
[2018-10-15] MEDS: LIDOCAINE 5% TOPICAL PATCH TP SCH (09:00)
[2018-10-15] MEDS: LUBIPROSTONE 24 MCG CAP PO SCH ×2 (10:17→21:08)
[2018-10-15] MEDS: FUROSEMIDE 20 MG TABLET PO SCH ×2 (10:17→17:07)
[2018-10-15] MEDS: AMLODIPINE BESYLATE 5 MG TAB PO SCH (10:17)
[2018-10-15] MEDS: FAMOTIDINE 20MG TAB 20 MG TAB PO SCH ×2 (10:17→21:09)
[2018-10-15] MEDS: LABETALOL HCL 200 MG TABLET PO SCH ×2 (10:17→21:09)
[2018-10-15] MEDS: GABAPENTIN 300 MG CAPSULE PO SCH ×2 (10:18→21:09)
[2018-10-15] MEDS: ENOXAPARIN SODIUM 40 MG/0.4 ML SYRINGE SQ SCH (10:19)
[2018-10-15 10:53] VITALS: BP 129/70
--- NOTE | 2018-10-15 14:52 | NUR ---
TRANSFER CANCELED Pt refused to be transferred - and warehouser made aware.
[2018-10-15 15:50] VITALS: BP 146/61
[2018-10-15 19:00] VITALS: BP 158/72
[2018-10-15] MEDS: MULTIVITAMIN TABLET PO SCH (21:08)
[2018-10-15 23:00] VITALS: BP 164/63
--- NOTE | 2018-10-16 | NUR ---
Pt. kept NPO at this time for Pleurx catheter placement tomorrow.Consent was obtained prior to giving pt. his Morphine for c/o left leg pain.
[2018-10-16] MEDS: ZOSYN 3.375GM+NS 50ML 50 ML IV SCH ×3 (00:26→21:20)
--- NOTE | 2018-10-16 00:30 | NUR ---
Pt. took a cup of coffee he said nobody can tell him what to do or not.Explained to pt everytime a pt goes for a procedure we have to place him on NPO but if he does not agree to be on NPO he can drink liquids tonight and will just inform the MD tomorrow.
--- NOTE | 2018-10-16 01:00 | NUR ---
Pt. agreed to be NPO at this time.
[2018-10-16] MEDS: MORPHINE SULFATE 2 MG/ML 1ML SYG IV PRN ×5 (01:23→21:24)
[2018-10-16] MEDS: IPRATROPIUM/ALBUTEROL SULFATE 3 ML SOLUTION IH SCH ×6 (01:36→21:43)
[2018-10-16 03:00] VITALS: BP 164/76
[2018-10-16 04:29] LABS: HEMATOCRIT 23.3 % (42-54); MEAN CORPUSCULAR HEMOGLOBIN 29.5 pg (27.0-33.0); MEAN CORPUSCULAR HGB CONC 34.6 g/dL (32.0-36.0); MEAN CORPUSCULAR VOLUME 85.2 fL (79-99); PLATELET COUNT (AUTO) 296 K/uL (130-400); RED BLOOD CELL COUNT(AUTO) 2.73 MIL/uL (4.50-6.20); RED CELL DISTRIBUTION WIDTH 20.6 % (11.0-15.5); WHITE BLOOD COUNT (AUTO) 8.8 K/uL (4.8-10.8)
[2018-10-16 04:39] LABS: LYMPHOCYTES % (MANUAL) 12 % (22-44); MAN.DIFF COMMENT-IMPRESSION MANUAL DIFFERENTIAL; MONOCYTES % (MANUAL) 5 % (2-9); PLATELET MORPHOLOGY COMMENT ADEQUATE; SEGMENTED NEUTROPHILS % 83 % (40-70)
[2018-10-16 05:01] LABS: CREATININE 1.7 mg/dL (0.5-1.5); POTASSIUM 4.6 mmol/L (3.5-5.1)
[2018-10-16] MEDS: METHYLPREDNISOLONE SOD SUCC 40MG/ML 1ML IVP SCH ×3 (05:01→21:23)
[2018-10-16] MEDS: GLIPIZIDE 5 MG TABLET PO SCH ×2 (06:42→15:37)
[2018-10-16] MEDS: INSULIN HUMULIN R 100 UNIT/ML 3ML SQ SCH ×4 (06:53→22:04)
--- NOTE | 2018-10-16 07:40 | NUR ---
Pt. awake most of the night, aware and agreed that he has to be on NPO for a procedure tomorrow ,report given to incoming NOD using SBAR all questions answered.
--- NOTE | 2018-10-16 07:45 | NUR ---
AM ASSESSMENT PT LAYING IN BED, HOB ELEVATED 30 DEGREES, RESTING. A/O X 3. NO SOB. NO DISTRESS NOTED. O2 NC @ 2L. DENIES CHEST PAIN OR DISCOMFORT. DENIES PALPITATIONS. DENIES PAIN LLE. TELE: SR 80s. DENIES N/V AND/OR DIARRHEA. URINE @ BEDSIDE. UP W/ASSISTANCE. INSTRUCTED TO CALL FOR ASSISTANCE. CALL RUTH ANN W/IN REACH. PT TO HAVE RT PLERX BY IR TODAY.
[2018-10-16 07:48] VITALS: BP 188/79
[2018-10-16] MEDS: LIDOCAINE 5% TOPICAL PATCH TP SCH (09:00)
[2018-10-16] MEDS: LABETALOL HCL 200 MG TABLET PO SCH ×2 (09:28→21:21)
[2018-10-16] MEDS: AMLODIPINE BESYLATE 5 MG TAB PO SCH (09:28)
[2018-10-16 10:08] VITALS: BP 158/72
--- NOTE | 2018-10-16 10:52 | NUR ---
[facility] CONSULT PATIENT ASSESSED ORDERED: PATIENT PRESENTS WITH STAGE II PRESSURE ULCER TO SACRUM; [facility] RECOMMENDATIONS SUBMITTED. Addendum: 10/16/18 at 1053 by QUIQUE BOWMAN LVN LVN W Amended: Links added.
[2018-10-16 11:52] VITALS: BP 163/79
--- NOTE | 2018-10-16 12:50 | NUR ---
STATUS PT UPDATED PROCEDURE FOR TODAY HAS BEEN CXD BY DR ELIZONDO AND TENTATIVEL RESCHEDULED FOR TH OR TUE THIS WEEK. PT REQUESTING TO TALK W/MD REGARDING PROCEDURE CANCELLATION. MD TO BE NOTIFIED.
[2018-10-16] MEDS: GABAPENTIN 300 MG CAPSULE PO SCH ×2 (13:05→21:21)
[2018-10-16] MEDS: LUBIPROSTONE 24 MCG CAP PO SCH ×2 (13:06→21:20)
[2018-10-16] MEDS: FUROSEMIDE 20 MG TABLET PO SCH ×2 (13:07→15:38)
[2018-10-16] MEDS: FAMOTIDINE 20MG TAB 20 MG TAB PO SCH ×2 (13:07→21:21)
[2018-10-16] MEDS: ENOXAPARIN SODIUM 40 MG/0.4 ML SYRINGE SQ SCH (13:08)
[2018-10-16 16:19] VITALS: BP 156/73
[2018-10-16 19:50] VITALS: BP 166/92
[2018-10-16] MEDS: MULTIVITAMIN TABLET PO SCH (21:20)
[2018-10-17] VITALS (7 sets, daily range): BP systolic 100–197; BP diastolic 49–89
--- NOTE | 2018-10-17 | NUR ---
Pt. agreed to be on NPO postmidnight to have abdominal ultrasound in the morning.
[2018-10-17] MEDS: IPRATROPIUM/ALBUTEROL SULFATE 3 ML SOLUTION IH SCH ×6 (01:19→21:50)
[2018-10-17 03:54] LABS: BASOPHILS % (AUTO) 0.1 % (0.0-5.0); EOSINOPHILS % (AUTO) 0.3 % (0.0-8.0); HEMATOCRIT 27.2 % (42-54); LYMPHOCYTES % (AUTO) 1.6 % (21.0-51.0); MEAN CORPUSCULAR HEMOGLOBIN 28.3 pg (27.0-33.0); MEAN CORPUSCULAR HGB CONC 33.1 g/dL (32.0-36.0); MEAN CORPUSCULAR VOLUME 85.3 fL (79-99); PLATELET COUNT (AUTO) 366 K/uL (130-400); RED BLOOD CELL COUNT(AUTO) 3.19 MIL/uL (4.50-6.20); RED CELL DISTRIBUTION WIDTH 20.2 % (11.0-15.5); WHITE BLOOD COUNT (AUTO) 10.5 K/uL (4.8-10.8)
[2018-10-17 04:02] LABS: ALBUMIN 2.1 g/dL (3.5-5.0); CREATININE 1.6 mg/dL (0.5-1.5); POTASSIUM 4.5 mmol/L (3.5-5.1)
[2018-10-17 04:14] LABS: B-TYPE NATRIURETIC PEPTIDE 848 pg/mL (0-100)
[2018-10-17] MEDS: ZOSYN 3.375GM+NS 50ML 50 ML IV SCH ×3 (04:48→20:12)
--- NOTE | 2018-10-17 04:52 | NUR ---
Pt. is awake and coherent,noted to be sweating ,blood sugar checked and it is 81,however pt. is NPO at this time.V/S checked 126/61 and HR 69 Sating 100% on 2 L/NC
[2018-10-17] MEDS: METHYLPREDNISOLONE SOD SUCC 40MG/ML 1ML IVP SCH ×3 (05:00→21:30)
[2018-10-17] MEDS: INSULIN HUMULIN R 100 UNIT/ML 3ML SQ SCH ×4 (06:11→21:31)
[2018-10-17] MEDS: GLIPIZIDE 5 MG TABLET PO SCH ×3 (07:30→18:04)
[2018-10-17] MEDS: AMLODIPINE BESYLATE 5 MG TAB PO SCH (08:15)
[2018-10-17] MEDS: LUBIPROSTONE 24 MCG CAP PO SCH ×2 (08:15→20:12)
[2018-10-17] MEDS: LABETALOL HCL 200 MG TABLET PO SCH ×2 (08:15→20:12)
[2018-10-17] MEDS: GABAPENTIN 300 MG CAPSULE PO SCH ×2 (08:24→20:12)
[2018-10-17] MEDS: FAMOTIDINE 20MG TAB 20 MG TAB PO SCH ×2 (08:24→20:12)
[2018-10-17] MEDS: ENOXAPARIN SODIUM 40 MG/0.4 ML SYRINGE SQ SCH (08:25)
[2018-10-17] MEDS: MORPHINE SULFATE 2 MG/ML 1ML SYG IV PRN ×4 (08:32→22:15)
[2018-10-17] MEDS: HONEY 1 APPL/ML TUBE TP SCH (15:00)
[2018-10-17] MEDS ORDERED: PHARMACY COMMUNICATION MISC SCH (17:30)
--- NOTE | 2018-10-17 17:55 | NUR ---
PATIENT BEHAVIOR REGARDING PAIN MEDICATION APPROXIMATELY AROUND 1730, PATIENT REQUESTING PAIN MEDICATION, REPORTING PAIN 9/10 TO LEFT LEG. I PULLED OUT MORPHINE 2MG IV Q4H PRN PAIN 7-10 AROUND THIS TIME, BUT I DID NOT GIVE ADMINISTER MEDICATION IMMEDIATELY BECAUSE I NOTICED PATIENTS RECENT BLOOD PRESSURE READING ENTERED 100/49. I HAD TO CLARIFY WITH BIRGIT MENDEZ IF BLOOD PRESSURE READING WAS ACCURATE. BIRGIT MENDEZ TOLD ME HE ENTERED "100/49" IN ERROR AND PATIENTS ACTUAL BP IS 156/70. AFTER THIS BLOOD PRESSURE CLARIFICATION, I ADMINISTERED MORPHINE 2MG IV PRN AT 1750. PATIENT WAS VERY UPSET I DID NOT ADMINISTER MORPHINE IMMEDIATELY AND STATES "I AM GOING TO COUNT MY NEXT DOSE WILL BE DUE AT 9:30PM BECAUSE I ASKED FOR IT AT 5:30 PM. YOU GAVE IT TO BE LATE!" I EXPLAINED TO PATIENT I HAD TO CLARIFY BLOOD PRESSURE SO I WOULD KNOW IT WAS SAFE TO ADMINISTER PAIN MEDICATION. PATIENT REFUSED TO HEAR MY EXPLANATION REPLIED "I DONT CARE, I WANT MY NEXT DOSE DUE AT 9:30PM BECAUSE I DON'T FORGET WHEN THE FOURTH HOUR IS UP!" PATIENT APPEARED VERY ANGRY. PATIENT REFUSING TO LISTEN TO MY EXPLANATION.
[2018-10-17 19:42] LABS: % IRON SATURATION 19.4 % (30-44)
[2018-10-17] MEDS ORDERED: COMPOUND IV MISC 1 EACH IVSOLN MISC PRN (19:45)
[2018-10-17] MEDS: MULTIVITAMIN TABLET PO SCH (20:12)
[2018-10-17] MEDS: HYDRALAZINE HCL 20 MG/ML VIAL IV PRN (20:17)
[2018-10-17] MEDS ORDERED: EPOETIN ALFA 10,000 UNIT/ML VIAL SQ NR (21:00)
[2018-10-18] MEDS: IPRATROPIUM/ALBUTEROL SULFATE 3 ML SOLUTION IH SCH ×3 (01:57→10:07)
[2018-10-18] MEDS ORDERED: DEXTROSE 50%-WATER 50 ML DISP.SYRIN IV ONE (03:46)
[2018-10-18 03:59] LABS: BASOPHILS % (AUTO) 0.1 % (0.0-5.0); HEMATOCRIT 29.5 % (42-54); LYMPHOCYTES % (AUTO) 1.8 % (21.0-51.0); MEAN CORPUSCULAR HEMOGLOBIN 28.6 pg (27.0-33.0); MEAN CORPUSCULAR HGB CONC 33.6 g/dL (32.0-36.0); MEAN CORPUSCULAR VOLUME 85.3 fL (79-99); MONOCYTES % (AUTO) 3.5 % (3.0-13.0); NEUTROPHILS % (AUTO) 94.6 % (40.0-77.0); PLATELET COUNT (AUTO) 382 K/uL (130-400); RED BLOOD CELL COUNT(AUTO) 3.45 MIL/uL (4.50-6.20)
[2018-10-18 04:00] VITALS: BP 185/81
[2018-10-18 04:14] LABS: CREATININE 1.6 mg/dL (0.5-1.5); POTASSIUM 4.7 mmol/L (3.5-5.1)
[2018-10-18 04:21] LABS: B-TYPE NATRIURETIC PEPTIDE 978 pg/mL (0-100)
[2018-10-18] MEDS: ZOSYN 3.375GM+NS 50ML 50 ML IV SCH ×2 (04:22→13:00)
[2018-10-18 04:23] VITALS: BP 166/74
[2018-10-18] MEDS: METHYLPREDNISOLONE SOD SUCC 40MG/ML 1ML IVP SCH ×2 (05:29→14:00)
[2018-10-18] MEDS: GLIPIZIDE 5 MG TABLET PO SCH ×2 (06:25→16:25)
[2018-10-18] MEDS: INSULIN HUMULIN R 100 UNIT/ML 3ML SQ SCH ×3 (06:30→16:25)
[2018-10-18] MEDS ORDERED: EPOETIN ALFA 10,000 UNIT/ML VIAL SQ NR (07:00)
[2018-10-18 08:05] VITALS: BP 189/97
[2018-10-18] MEDS ORDERED: SPIRONOLACTONE 25 MG TAB PO SCH (09:00)
[2018-10-18] MEDS ORDERED: FUROSEMIDE 10 MG/ML 10ML VIAL IVP SCH (09:00)
[2018-10-18] MEDS ORDERED: IRON SUCROSE COMPLEX 100 MG in SODIUM CHLORIDE 0.9% 50 ML IV SCH (09:00)
[2018-10-18] MEDS: MORPHINE SULFATE 2 MG/ML 1ML SYG IV PRN (10:43)
[2018-10-18] MEDS: LUBIPROSTONE 24 MCG CAP PO SCH (10:45)
[2018-10-18] MEDS: LABETALOL HCL 200 MG TABLET PO SCH (10:45)
[2018-10-18] MEDS: AMLODIPINE BESYLATE 5 MG TAB PO SCH (10:45)
[2018-10-18] MEDS: GABAPENTIN 300 MG CAPSULE PO SCH (10:45)
[2018-10-18] MEDS: FAMOTIDINE 20MG TAB 20 MG TAB PO SCH (10:46)
[2018-10-18] MEDS: ENOXAPARIN SODIUM 40 MG/0.4 ML SYRINGE SQ SCH (10:48)
[2018-10-18] MEDS ORDERED: SPIR25TA6 PO (11:56)
[2018-10-18 12:00] VITALS: BP 178/75
[2018-10-18 15:55] VITALS: BP 170/76
[2018-10-18] MEDS: HONEY 1 APPL/ML TUBE TP SCH (16:14)
== END 2018-10-18 16:30 | disposition home or self-care (01) | DRG 291 ==
LOC: EDH 19:49 → EDHIP 22:49 → 2DH 10-13 01:07
PROVIDERS: ADMIT Internal Medicine; ATTEND Internal Medicine
PROC: 0W9B3ZZ Drainage of Left Pleural Cavity, Percutaneous Approach (ICD-10-PCS; principal; 2018-10-13)
DX: I13.0 Hypertensive heart and chronic kidney disease with heart failure and stage 1 through stage 4 chronic kidney disease, or unspecified chronic kidney disease (principal); I50.33 Acute on chronic diastolic (congestive) heart failure; J18.9 Pneumonia, unspecified organism; J96.21 Acute and chronic respiratory failure with hypoxia; I74.5 Embolism and thrombosis of iliac artery; N18.4 Chronic kidney disease, stage 4 (severe); R18.8 Other ascites; J91.8 Pleural effusion in other conditions classified elsewhere; J44.0 Chronic obstructive pulmonary disease with (acute) lower respiratory infection; D50.9 Iron deficiency anemia, unspecified; D63.8 Anemia in other chronic diseases classified elsewhere; E11.21 Type 2 diabetes mellitus with diabetic nephropathy; E11.22 Type 2 diabetes mellitus with diabetic chronic kidney disease; E11.51 Type 2 diabetes mellitus with diabetic peripheral angiopathy without gangrene; E78.5 Hyperlipidemia, unspecified; I25.10 Atherosclerotic heart disease of native coronary artery without angina pectoris; K74.60 Unspecified cirrhosis of liver; Z79.4 Long term (current) use of insulin; Z79.899 Other long term (current) drug therapy; Z99.81 Dependence on supplemental oxygen; Z95.5 Presence of coronary angioplasty implant and graft; Z87.891 Personal history of nicotine dependence; Z82.49 Family history of ischemic heart disease and other diseases of the circulatory system; Z82.3 Family history of stroke
CPT/HCPCS: 32555; 36415; 36600; 71045; 71046; 76604; 76705; 80048; 80053; 82040; 82550; 82803; 82948; 83540; 83550; 83880; 84484; 85025; 85610; 85730; 87040; 87804; 93005; 94640; 99291; G0378; J0360; J0885; J1650; J1756; J1815; J1940; J2543; J2920; J2930; J7070

== ENCOUNTER 2018-10-20 17:25 | Inpatient (IN) | payer OTHER ==
[~2018-10-20] VITALS: Ht 180.3 cm; Wt 53.6 kg
[~2018-10-20 17:25] MED LIST changes: +SPIR25TA6 PO
[2018-10-20 17:45] LABS: BASOPHILS % (AUTO) 0.3 % (0.0-5.0); EOSINOPHILS % (AUTO) 0.1 % (0.0-8.0); HEMATOCRIT 28.3 % (42-54); LYMPHOCYTES % (AUTO) 3.7 % (21.0-51.0); MEAN CORPUSCULAR HEMOGLOBIN 28.7 pg (27.0-33.0); MEAN CORPUSCULAR HGB CONC 33.4 g/dL (32.0-36.0); MEAN CORPUSCULAR VOLUME 85.9 fL (79-99); MONOCYTES % (AUTO) 2.8 % (3.0-13.0); NEUTROPHILS % (AUTO) 93.1 % (40.0-77.0); NUCLEATED RED BLOOD CELLS 0.1 % (0.0-0.19); PLATELET COUNT (AUTO) 304 K/uL (130-400); RED CELL DISTRIBUTION WIDTH 19.8 % (11.0-15.5); WHITE BLOOD COUNT (AUTO) 9.6 K/uL (4.8-10.8)
[2018-10-20 17:53] LABS: CREATININE 1.4 mg/dL (0.5-1.5)
[2018-10-20 17:57] LABS: ALBUMIN 1.8 g/dL (3.5-5.0); BILIRUBIN,TOTAL 0.4 mg/dL (0.2-1.0); TOTAL PROTEIN, SERUM 6.4 g/dL (6.0-8.3)
[2018-10-20 18:33] LABS: INR 1.02 (0.85-1.15); PARTIAL THROMBOPLASTIN TIME 31.3 SEC (26.3-35.5); PROTHROMBIN TIME 10.7 SEC (9.6-11.6)
[2018-10-20] MEDS ORDERED: METHYLPREDNISOLONE SOD SUCC 125MG/2ML VIAL ONE (18:50)
[2018-10-20] MEDS ORDERED: IPRATROPIUM/ALBUTEROL SULFATE 3 ML SOLUTION IH ONE ×2 (19:15→22:56)
[2018-10-20 19:18] LABS: B-TYPE NATRIURETIC PEPTIDE 1350 pg/mL (0-100)
[2018-10-20] MEDS ORDERED: LABETALOL HCL 5 MG/ML 20ML VIAL IV ONE (20:40)
[2018-10-20 20:46] LABS: ABG BASE EXCESS 5.7 mmol/L (-2.0-3.0); ABG HCO3 28.9 mmol/L (21.0-28.0); ABG OXYGEN SATURATION 95.5 % (95.0-99.0); ABG PCO2 37 mmHg (35-48)
[2018-10-20] MEDS ORDERED: HYDROCODONE/ACETAMINOPHEN 5/325 MG TAB PO PRN ×2 (21:15)
[2018-10-20] MEDS ORDERED: ONDANSETRON HCL 4 MG/2 ML VIAL IV PRN (21:15)
[2018-10-20] MEDS ORDERED: METHYLPREDNISOLONE SOD SUCC 125MG/2ML VIAL IV SCH (21:15)
[2018-10-20] MEDS: NITROGLYCERIN 1GM/1 INCH PACKET TD SCH (21:15)
[2018-10-20] MEDS ORDERED: HYDRALAZINE HCL 20 MG/ML VIAL IV PRN (21:15)
[2018-10-20] MEDS ORDERED: ACETAMINOPHEN 325 MG TAB PO PRN ×2 (21:15)
[2018-10-20 21:18] LABS: APPEARANCE,URINE Clear (CLEAR); BILIRUBIN,URINE Negative (NEGATIVE); COLOR,URINE Yellow (YELLOW); GLUCOSE, URINE (UA) 500 mg/dL (NEGATIVE); KETONES,URINE Trace mg/dL (NEGATIVE); LEUKOCYTE ESTERASE ,URINE Negative (NEGATIVE); NITRATE,URINE Negative (NEGATIVE); OCCULT BLOOD,URINE Trace (NEGATIVE); PH,URINE 6.5 (5.0-8.0); PROTEIN,URINE 300 mg/dL (NEGATIVE); UROBILINOGEN,URINE 0.2 mg/dL (0.2-1.0)
[2018-10-20] MEDS: METHYLPREDNISOLONE SOD SUCC 40MG/ML 1ML IVP SCH (21:25)
[2018-10-20 21:34] LABS: BACTERIA,URINE Rare /HPF (None Seen); SQUAMOUS EPITHELIAL CELL,UR None Seen /HPF (0-2); WBC,URINE 0-1 /HPF (0-1)
[2018-10-20] MEDS ORDERED: ZOSYN 3.375GM+NS 50ML 50 ML IV ONE (22:07)
[2018-10-20] MEDS ORDERED: HYDRALAZINE HCL 20 MG/ML VIAL ONE (22:08)
[2018-10-20] MEDS ORDERED: NITROGLYCERIN 1GM/1 INCH PACKET TD ONE (22:08)
[2018-10-20 23:14] VITALS: BP 153/69
[2018-10-20] MEDS: IPRATROPIUM/ALBUTEROL SULFATE 3 ML SOLUTION IH SCH (23:43)
[2018-10-21] MEDS ORDERED: IPRATROPIUM/ALBUTEROL SULFATE 3 ML SOLUTION IH SCH
[2018-10-21 03:00] VITALS: BP 144/63
[2018-10-21] MEDS ORDERED: ZOSYN 3.375GM+NS 50ML 50 ML IV ONE (05:32)
[2018-10-21] MEDS: METHYLPREDNISOLONE SOD SUCC 40MG/ML 1ML IVP SCH ×3 (05:47→20:40)
[2018-10-21] MEDS: NITROGLYCERIN 1GM/1 INCH PACKET TD SCH ×3 (05:48→21:23)
[2018-10-21] MEDS: IPRATROPIUM/ALBUTEROL SULFATE 3 ML SOLUTION IH SCH ×3 (06:46→19:09)
[2018-10-21] MEDS ORDERED: ZOSYN 3.375GM+NS 50ML 50 ML IV SCH ×2 (07:00)
[2018-10-21 07:27] VITALS: BP 157/78
[2018-10-21] MEDS: FAMOTIDINE 20MG TAB 20 MG TAB PO SCH ×2 (08:41→20:40)
[2018-10-21] MEDS: ENOXAPARIN SODIUM 30 MG/0.3 ML SQ SCH ×2 (08:42→20:40)
[2018-10-21] MEDS: ASPIRIN 325 MG TABLET PO SCH (08:42)
[2018-10-21] MEDS ORDERED: FAMOTIDINE/PF 20 MG/2 ML VIAL IV SCH (09:00)
[2018-10-21] MEDS ORDERED: FUROSEMIDE 10 MG/ML 2ML VIAL IV SCH (09:00)
[2018-10-21] MEDS ORDERED: NITROGLYCERIN 1GM/1 INCH PACKET TD SCH (10:42)
--- NOTE | 2018-10-21 11:00 | NUR ---
PULMONOLOGY WHILE UPDATING WHITEBOARD IN PT'S RM, WRITING DR JEREZ'S NAME. PT & PT'S SPOUSE PRESENT IN RM. PT REFUSED TO BE SEEN BY DR JEREZ. PT INFORMED DR JEREZ IS PART OF [employer] AND IS CHIEF DIETITIAN FOR THE GROUP. PT REFUSES TO BE SEEN BY DR JEREZ. SPOUSE AGREES. PT STATES REFUSING TO BE SEEN BY DR JEREZ DUE TO PAST EXPERIENCE W/.
[2018-10-21] MEDS: MORPHINE SULFATE 2 MG/ML 1ML SYG IVP PRN ×4 (11:03→23:04)
--- NOTE | 2018-10-21 11:10 | NUR ---
PULMONOLOGY DR SOLITARIO ZHONG. UPDATED MD ON PT REFUSING DR EJREZ'S SERVICE.
--- NOTE | 2018-10-21 11:15 | NUR ---
PULMONOLOGY DR JEREZ & DR CARLISLE SPOKE IN HALLWAY REGARDING PT'S REFUSAL TO BE SEEN BY DR JEREZ. [employer] TO SIGN OFF @ THIS POINT.
[2018-10-21] MEDS ORDERED: GLUCAGON 1MG KIT 1 MG ML IM PRN (11:30)
[2018-10-21] MEDS ORDERED: DEXTROSE 50%-WATER 50 ML DISP.SYRIN IV PRN (11:30)
[2018-10-21 11:31] VITALS: BP 158/72
[2018-10-21] MEDS ORDERED: ACETAMINOPHEN EXTENDED RELEASE 650 MG TABLET PO PRN (13:00)
[2018-10-21] MEDS: ZOSYN 3.375GM+NS 50ML 50 ML IV SCH ×2 (14:40→20:40)
[2018-10-21] MEDS: INSULIN HUMULIN R 100 UNIT/ML 3ML SQ SCH ×3 (14:42→20:38)
[2018-10-21] MEDS ORDERED: INSULIN GLARGINE 100 UNITS/ML 10 ML VIAL SQ SCH (15:00)
--- NOTE | 2018-10-21 15:37 | NUR ---
INITIAL: Met with pt and spoke w spouse Santo via phone this afternoon to discuss dcp. Prior to admission pt was living w spouse. Spouse states she provides MEDICAL AFFAIRS DIRECTOR for ambulation but pt also has a wc and rollator if needed. Pt requires assistance w ADLs. Pt has at home a pulse oximeter, O2, nebulizer, rollator and wc. Per pt and spouse when home they put the O2 @ 5 Liters but it was not working properly and he came right back to the hospital dt low oxygen saturation and SOB. Per spouse pt may benefit from short term SNF for rehab @ dc but feels he may refuse. Pt states at this time he plans to return home when cleared. Call placed to [facility] [phone]. Was able to speak juana Govea and he was able to confirm that they provide O2 services for Mr. Montano. He mentions that they can go out to check the equipment when pt is home. Informed Jeferson that pt needs O2 to be functioning properly before discharge to prevent a readmission. Provided Jeferson w Mrs. Barrios phone number so that he can coordinate w her a trip out to physically check the equipment before pt is discharged. Informed Jeferson that pt is requesting equipment be changed out prior to him discharging home. Per Jeferson he will contact local [employer]. to continue to follow. Addendum: 10/21/18 at 1546 by ZORAN BRAXTON Amended: Links added.
--- NOTE | 2018-10-21 15:45 | NUR ---
HYPERGLYCEMIA @ 1108 GLUCOSE 537. REGULAR INSULIN PER SLIDING SCALE GIVEN. RANDOM GLUCOSE TO BE DONE BY LAB, ORDER ENTERED. @ [address] CARLISLE NOTIFIED. TO ENTER ORDERS. @ 1436 GLUCOSE 547. LANTUS 15 UNITS SQ ALREADY GIVEN. @ 1544 GLUCOSE 488. REGULAR INSULIN PER SLIDING SCALE GIVEN. WILL CONTINUE TO MONITOR HYPERGLYCEMIA.
[2018-10-21 16:00] VITALS: BP 155/76
[2018-10-21] MEDS: FUROSEMIDE 10 MG/ML 2ML VIAL IV SCH (17:47)
[2018-10-21] MEDS: CLONIDINE HCL 0.1 MG TABLET PO SCH ×2 (17:47→20:41)
[2018-10-21 19:00] VITALS: BP 141/68
[2018-10-21] MEDS: BUDESONIDE 0.5 MG/2 ML INH IH SCH (19:28)
[2018-10-21] MEDS: INSULIN GLARGINE 100 UNITS/ML 10 ML VIAL SQ SCH (20:39)
[2018-10-21] MEDS: MULTIVITAMIN TABLET PO SCH (20:40)
[2018-10-21] MEDS: GABAPENTIN 300 MG CAPSULE PO SCH (20:42)
[2018-10-21] MEDS: LABETALOL HCL 200 MG TABLET PO SCH (20:42)
[2018-10-21] MEDS: LUBIPROSTONE 24 MCG CAP PO SCH (20:42)
[2018-10-21 23:00] VITALS: BP 137/65
[2018-10-22] MEDS: IPRATROPIUM/ALBUTEROL SULFATE 3 ML SOLUTION IH SCH ×5 (00:30→23:37)
[2018-10-22] MEDS: MORPHINE SULFATE 2 MG/ML 1ML SYG IVP PRN ×5 (02:59→23:08)
[2018-10-22 03:00] VITALS: BP 139/62
[2018-10-22 03:42] LABS: CREATININE 1.6 mg/dL (0.5-1.5)
[2018-10-22] MEDS: ZOSYN 3.375GM+NS 50ML 50 ML IV SCH ×3 (05:10→22:24)
[2018-10-22] MEDS: METHYLPREDNISOLONE SOD SUCC 40MG/ML 1ML IVP SCH ×3 (05:10→22:25)
[2018-10-22] MEDS: FUROSEMIDE 10 MG/ML 2ML VIAL IV SCH ×2 (05:10→17:07)
[2018-10-22] MEDS: NITROGLYCERIN 1GM/1 INCH PACKET TD SCH ×3 (05:11→22:24)
[2018-10-22] MEDS: CLONIDINE HCL 0.1 MG TABLET PO SCH ×3 (05:12→22:29)
[2018-10-22] MEDS: INSULIN HUMULIN R 100 UNIT/ML 3ML SQ SCH ×4 (06:02→22:21)
[2018-10-22] MEDS: BUDESONIDE 0.5 MG/2 ML INH IH SCH ×2 (06:56→18:46)
[2018-10-22] MEDS: INSULIN GLARGINE 100 UNITS/ML 10 ML VIAL SQ SCH ×2 (07:10→22:20)
[2018-10-22 07:53] VITALS: BP 158/65
[2018-10-22] MEDS: LIDOCAINE 5% TOPICAL PATCH TP SCH (09:00)
--- NOTE | 2018-10-22 09:00 | NUR ---
AM ASSESSMENT PT SITTING IN BED, WATCHING TV. A/O X 3. [employer] [place]. SOB ON EXERTION. NO DISTRESS NOTED. O2 NC @ 3L. DENIES CHEST PAIN OR DISCOMFORT. DENIES PALPITATIONS. TELE: SR 70s. DENIES N/V AND/OR DIARRHEA. INSTRUCTED TO CALL FOR ASSISTANCE. CALL RUTH ANN W/IN REACH.
[2018-10-22] MEDS: GABAPENTIN 300 MG CAPSULE PO SCH ×2 (09:23→22:25)
[2018-10-22] MEDS: FAMOTIDINE 20MG TAB 20 MG TAB PO SCH ×2 (09:23→22:25)
[2018-10-22] MEDS: LABETALOL HCL 200 MG TABLET PO SCH ×2 (09:23→22:25)
[2018-10-22] MEDS: AMLODIPINE BESYLATE 5 MG TAB PO SCH (09:23)
[2018-10-22] MEDS: SPIRONOLACTONE 25 MG TAB PO SCH (09:23)
[2018-10-22] MEDS: ASPIRIN 325 MG TABLET PO SCH (09:23)
[2018-10-22] MEDS: LUBIPROSTONE 24 MCG CAP PO SCH ×2 (09:23→22:25)
[2018-10-22] MEDS: ENOXAPARIN SODIUM 30 MG/0.3 ML SQ SCH ×2 (09:24→22:27)
[2018-10-22 11:58] VITALS: BP 148/60
[2018-10-22 16:34] VITALS: BP 120/68
[2018-10-22 19:00] VITALS: BP 155/60
[2018-10-22] MEDS: MULTIVITAMIN TABLET PO SCH (22:25)
[2018-10-22 23:00] VITALS: BP 147/71
[2018-10-23 03:00] VITALS: BP 134/58
[2018-10-23] MEDS: MORPHINE SULFATE 2 MG/ML 1ML SYG IVP PRN ×4 (03:57→22:06)
[2018-10-23 04:04] LABS: CREATININE 1.6 mg/dL (0.5-1.5); POTASSIUM 4.1 mmol/L (3.5-5.1)
[2018-10-23] MEDS: CLONIDINE HCL 0.1 MG TABLET PO SCH ×3 (04:42→21:46)
[2018-10-23] MEDS: ZOSYN 3.375GM+NS 50ML 50 ML IV SCH ×3 (04:43→21:46)
[2018-10-23] MEDS: METHYLPREDNISOLONE SOD SUCC 40MG/ML 1ML IVP SCH ×2 (04:43→13:04)
[2018-10-23] MEDS ORDERED: FUROSEMIDE 10 MG/ML 2ML VIAL IV SCH (05:00)
[2018-10-23] MEDS: INSULIN HUMULIN R 100 UNIT/ML 3ML SQ SCH ×4 (05:33→22:21)
[2018-10-23] MEDS: NITROGLYCERIN 1GM/1 INCH PACKET TD SCH ×3 (05:54→21:48)
[2018-10-23] MEDS: INSULIN GLARGINE 100 UNITS/ML 10 ML VIAL SQ SCH ×2 (06:05→22:22)
[2018-10-23] MEDS: BUDESONIDE 0.5 MG/2 ML INH IH SCH ×2 (06:29→18:31)
[2018-10-23] MEDS: IPRATROPIUM/ALBUTEROL SULFATE 3 ML SOLUTION IH SCH ×4 (06:29→23:20)
[2018-10-23 07:45] VITALS: BP 149/62
[2018-10-23] MEDS: AMLODIPINE BESYLATE 5 MG TAB PO SCH (08:45)
[2018-10-23] MEDS: LUBIPROSTONE 24 MCG CAP PO SCH ×2 (08:45→22:00)
[2018-10-23] MEDS: ASPIRIN 325 MG TABLET PO SCH (08:45)
[2018-10-23] MEDS: SPIRONOLACTONE 25 MG TAB PO SCH (08:46)
[2018-10-23] MEDS: GABAPENTIN 300 MG CAPSULE PO SCH ×2 (08:46→21:46)
[2018-10-23] MEDS: FAMOTIDINE 20MG TAB 20 MG TAB PO SCH ×2 (08:46→21:45)
[2018-10-23] MEDS: LABETALOL HCL 200 MG TABLET PO SCH ×2 (08:46→22:00)
[2018-10-23] MEDS: ENOXAPARIN SODIUM 30 MG/0.3 ML SQ SCH ×2 (08:47→21:47)
[2018-10-23] MEDS: LIDOCAINE 5% TOPICAL PATCH TP SCH (08:47)
[2018-10-23 11:51] VITALS: BP 149/62
--- NOTE | 2018-10-23 12:40 | NUR ---
cm note call made to [facility] [phone]. and informed of pt request they replace his home o2 with new machines due to oxygen not working well. they states they will go and service or replace the oxygen for pt.
[2018-10-23 15:58] VITALS: BP 149/59
--- NOTE | 2018-10-23 16:45 | NUR ---
cm note met with patient and with , and state that they wish to return back home at time of dc, and that they have already received new oxygen equipment at home from [facility] today. states per md, dc plan is for home tomorrow morning, state no other dc needs.
[2018-10-23 19:37] VITALS: BP 145/69
[2018-10-23] MEDS: FUROSEMIDE 10 MG/ML 2ML VIAL IV SCH (21:47)
[2018-10-23] MEDS: MULTIVITAMIN TABLET PO SCH (22:00)
[2018-10-24 00:29] VITALS: BP 146/53
[2018-10-24] MEDS: MORPHINE SULFATE 2 MG/ML 1ML SYG IVP PRN ×2 (03:26→07:56)
[2018-10-24 04:10] LABS: CREATININE 1.6 mg/dL (0.5-1.5); POTASSIUM 3.9 mmol/L (3.5-5.1)
[2018-10-24 04:14] VITALS: BP 166/65
[2018-10-24 04:15] LABS: HEMATOCRIT 22.5 % (42-54); MEAN CORPUSCULAR VOLUME 85.4 fL (79-99); PLATELET COUNT (AUTO) 296 K/uL (130-400); RED BLOOD CELL COUNT(AUTO) 2.64 MIL/uL (4.50-6.20); RED CELL DISTRIBUTION WIDTH 19.5 % (11.0-15.5); WHITE BLOOD COUNT (AUTO) 9.5 K/uL (4.8-10.8)
[2018-10-24 05:33] LABS: BAND NEUTROPHILS % (MANUAL) 1 % (0-2); LYMPHOCYTES % (MANUAL) 4 % (22-44); MAN.DIFF COMMENT-IMPRESSION MANUAL DIFFERENTIAL; MONOCYTES % (MANUAL) 2 % (2-9); PLATELET MORPHOLOGY COMMENT ADEQUATE; SEGMENTED NEUTROPHILS % 93 % (40-70)
--- NOTE | 2018-10-24 06:01 | NUR ---
PATIENT RESTING IN BED. DENIES CHEST PAIN OR SOB. DOES C/O PAIN TO LLE. WILL ONLY TAKE MORPHINE FOR PAIN. REFUSING ALL OTHER PO PAIN MEDS. PATIENT HAS ULCER TO SACRUM. PATIENT REFUSING ALLEVYN PATCH OR ANY OTHER FORMS OF PROTECTANTS. PATIENT ALSO REFUSING BATH BY STAFF. STATES HE WILL HAVE BATHE HIM DURING DAY. TOLERATING IV ZOSYN. NO N/V/D OR ITCHING.
[2018-10-24] MEDS: INSULIN HUMULIN R 100 UNIT/ML 3ML SQ SCH (06:05)
[2018-10-24] MEDS: INSULIN GLARGINE 100 UNITS/ML 10 ML VIAL SQ SCH (06:05)
[2018-10-24] MEDS: FUROSEMIDE 10 MG/ML 2ML VIAL IV SCH (06:17)
[2018-10-24] MEDS: ZOSYN 3.375GM+NS 50ML 50 ML IV SCH (06:18)
[2018-10-24] MEDS: NITROGLYCERIN 1GM/1 INCH PACKET TD SCH (06:18)
[2018-10-24] MEDS: CLONIDINE HCL 0.1 MG TABLET PO SCH (06:25)
[2018-10-24] MEDS: BUDESONIDE 0.5 MG/2 ML INH IH SCH (06:26)
[2018-10-24] MEDS: IPRATROPIUM/ALBUTEROL SULFATE 3 ML SOLUTION IH SCH (06:26)
[2018-10-24 07:00] VITALS: BP 161/62
[2018-10-24] MEDS: FAMOTIDINE 20MG TAB 20 MG TAB PO SCH (07:54)
[2018-10-24] MEDS: ASPIRIN 325 MG TABLET PO SCH (07:54)
[2018-10-24] MEDS: LUBIPROSTONE 24 MCG CAP PO SCH (07:54)
[2018-10-24] MEDS: GABAPENTIN 300 MG CAPSULE PO SCH (07:54)
[2018-10-24] MEDS: SPIRONOLACTONE 25 MG TAB PO SCH (07:55)
[2018-10-24] MEDS: AMLODIPINE BESYLATE 5 MG TAB PO SCH (07:55)
[2018-10-24] MEDS: LABETALOL HCL 200 MG TABLET PO SCH (07:55)
[2018-10-24] MEDS: ENOXAPARIN SODIUM 30 MG/0.3 ML SQ SCH (07:56)
[2018-10-24] MEDS: LIDOCAINE 5% TOPICAL PATCH TP SCH (08:06)
[2018-10-24] MEDS ORDERED: PREDNISONE 10 MG TABLET PO SCH (09:00)
[2018-10-24 11:00] VITALS: BP 127/50
== END 2018-10-24 11:18 | disposition home or self-care (01) | DRG 189 ==
LOC: EDH 17:25 → EDHIP 20:30 → 2AH 22:22
PROVIDERS: ADMIT Internal Medicine; ATTEND Internal Medicine
DX: J96.21 Acute and chronic respiratory failure with hypoxia (principal); J44.1 Chronic obstructive pulmonary disease with (acute) exacerbation; I50.9 Heart failure, unspecified; I11.0 Hypertensive heart disease with heart failure; E11.65 Type 2 diabetes mellitus with hyperglycemia; D64.9 Anemia, unspecified; I25.10 Atherosclerotic heart disease of native coronary artery without angina pectoris; E78.5 Hyperlipidemia, unspecified; Z99.81 Dependence on supplemental oxygen; Z86.73 Personal history of transient ischemic attack (TIA), and cerebral infarction without residual deficits; Z82.5 Family history of asthma and other chronic lower respiratory diseases; Z82.3 Family history of stroke; Z82.49 Family history of ischemic heart disease and other diseases of the circulatory system; Z79.84 Long term (current) use of oral hypoglycemic drugs; Z95.5 Presence of coronary angioplasty implant and graft
CPT/HCPCS: 36415; 36600; 71045; 80048; 80053; 81001; 82803; 82947; 82948; 83880; 84484; 85025; 85610; 85730; 93005; 94640; 94664; G0378; J0360; J1650; J1815; J1940; J2543; J2920; J2930; J3490; J7512

== ENCOUNTER 2018-10-30 11:52 | Inpatient (IN) | payer OTHER ==
[~2018-10-30] VITALS: Ht 180.3 cm; Wt 48.8 kg
[2018-10-30 12:18] LABS: BASOPHILS % (AUTO) 0.9 % (0.0-5.0); EOSINOPHILS % (AUTO) 0.2 % (0.0-8.0); HEMATOCRIT 22.1 % (42-54); LYMPHOCYTES % (AUTO) 2.9 % (21.0-51.0); MEAN CORPUSCULAR HEMOGLOBIN 29.6 pg (27.0-33.0); MEAN CORPUSCULAR HGB CONC 33.8 g/dL (32.0-36.0); MEAN CORPUSCULAR VOLUME 87.6 fL (79-99); MONOCYTES % (AUTO) 2.6 % (3.0-13.0); NEUTROPHILS % (AUTO) 93.4 % (40.0-77.0); NUCLEATED RED BLOOD CELLS 0.2 % (0.0-0.19); PLATELET COUNT (AUTO) 255 K/uL (130-400); RED BLOOD CELL COUNT(AUTO) 2.52 MIL/uL (4.50-6.20); RED CELL DISTRIBUTION WIDTH 18.9 % (11.0-15.5); WHITE BLOOD COUNT (AUTO) 9.9 K/uL (4.8-10.8)
[2018-10-30 12:34] LABS: CREATININE 1.1 mg/dL (0.5-1.5); POTASSIUM 3.7 mmol/L (3.5-5.1)
[2018-10-30 12:41] LABS: ALBUMIN 1.7 g/dL (3.5-5.0); BILIRUBIN,TOTAL 0.5 mg/dL (0.2-1.0); TOTAL PROTEIN, SERUM 6.1 g/dL (6.0-8.3)
[2018-10-30 12:51] LABS: INR 0.98 (0.85-1.15); PARTIAL THROMBOPLASTIN TIME 26.7 SEC (26.3-35.5); PROTHROMBIN TIME 10.3 SEC (9.6-11.6)
[2018-10-30] MEDS ORDERED: ALBUMIN (HUMAN) 25% 100 ML IV ONE (14:12)
[2018-10-30] MEDS ORDERED: FUROSEMIDE 10 MG/ML 4ML VIAL ONE (14:12)
[2018-10-30] MEDS ORDERED: ONDANSETRON HCL 4 MG/2 ML VIAL IV PRN (15:15)
[2018-10-30] MEDS ORDERED: LACTULOSE 20 GM/30 ML UDCUP PO PRN (15:15)
[2018-10-30] MEDS ORDERED: NITROGLYCERIN 0.4 MG SL TAB SL PRN (15:15)
[2018-10-30] MEDS ORDERED: HYDRALAZINE HCL 20 MG/ML VIAL IV PRN (15:15)
[2018-10-30] MEDS ORDERED: ACETAMINOPHEN 325 MG TAB PO PRN ×2 (15:15)
[2018-10-30] MEDS ORDERED: LIDOCAINE HCL 2% 20ML ONE (15:43)
[2018-10-30 19:55] VITALS: BP 195/88
--- NOTE | 2018-10-30 20:00 | NUR ---
PATIENT ADMITTED TO ROOM CALL VALLECILLO WITHIN REACH. PATIENT NOT HAVE MED BOTTLES HERE BUT WENT OVER MEDS WITH PATIENT AND PATIENT STATED ALL CORRECT AND NO CHANGES.
[2018-10-30 21:45] VITALS: BP 166/76
[2018-10-30] MEDS: FUROSEMIDE 10 MG/ML 2ML VIAL IV SCH (22:07)
[2018-10-30 23:20] VITALS: BP 169/73
[2018-10-31] VITALS (7 sets, daily range): BP systolic 105–180; BP diastolic 60–76
--- NOTE | 2018-10-31 02:12 | NUR ---
PICTURES TAKEN OF ULCER ON SACRUM, UNABLE TO DOWNLOAD PICTURES, PRINTERS NON FUNCTIONING. INSIDE STEWARD/STEWARDESS AWARE.
[2018-10-31] MEDS: FUROSEMIDE 10 MG/ML 2ML VIAL IV SCH ×3 (05:32→22:50)
[2018-10-31] MEDS ORDERED: ACETAMINOPHEN EXTENDED RELEASE 650 MG TABLET PO PRN (08:00)
[2018-10-31] MEDS ORDERED: BUDESONIDE 0.5 MG IH SCH (08:15)
[2018-10-31] MEDS: BUDESONIDE 0.5 MG/2 ML INH IH SCH ×2 (08:56→18:24)
[2018-10-31] MEDS: LIDOCAINE 5% TOPICAL PATCH TP SCH (09:00)
[2018-10-31] MEDS: GABAPENTIN 300 MG CAPSULE PO SCH ×2 (09:23→20:20)
[2018-10-31] MEDS: LUBIPROSTONE 24 MCG CAP PO SCH ×2 (09:23→20:19)
[2018-10-31] MEDS: MORPHINE SULFATE 2 MG/ML 1ML SYG IVP PRN ×3 (09:23→20:21)
[2018-10-31] MEDS: FAMOTIDINE/PF 20 MG/2 ML VIAL IV SCH (09:23)
[2018-10-31] MEDS: LABETALOL HCL 200 MG TABLET PO SCH ×2 (09:24→20:19)
[2018-10-31] MEDS: AMLODIPINE BESYLATE 5 MG TAB PO SCH (09:24)
[2018-10-31] MEDS: SPIRONOLACTONE 25 MG TAB PO SCH (09:24)
[2018-10-31] MEDS: CLONIDINE HCL 0.1 MG TABLET PO SCH ×3 (09:35→23:57)
[2018-10-31] MEDS: IPRATROPIUM/ALBUTEROL SULFATE 3 ML SOLUTION IH SCH ×3 (10:59→23:32)
[2018-10-31 11:43] LABS: HEMATOCRIT 22.3 % (42-54)
[2018-10-31 11:56] LABS: CREATININE 1.2 mg/dL (0.5-1.5); POTASSIUM 3.2 mmol/L (3.5-5.1)
[2018-10-31] MEDS: INSULIN HUMULIN R 100 UNIT/ML 3ML SQ SCH ×3 (12:10→20:57)
[2018-10-31] MEDS ORDERED: POTASSIUM CHLORIDE 20 MEQ ERTAB PO PRN (15:00)
[2018-10-31] MEDS ORDERED: LIDOCAINE HCL-MPF 1% 2ML VIAL IVP PRN (15:00)
[2018-10-31] MEDS ORDERED: POTASSIUM CHLORIDE 20MEQ/100ML 100 ML IV PRN (15:00)
[2018-10-31] MEDS: POTASSIUM CHLORIDE 20 MEQ ERTAB PO ONE ×2 (15:26→15:32)
[2018-10-31] MEDS ORDERED: POTASSIUM CHLORIDE 10% ELIXIR 20 MEQ/15 ML UDCUP ONE (15:30)
[2018-10-31] MEDS: GLIPIZIDE 5 MG TABLET PO SCH (15:41)
[2018-10-31] MEDS: POTASSIUM CHLORIDE 10% ELIXIR 20 MEQ/15 ML UDCUP PO PRN ×2 (18:34→20:20)
[2018-10-31] MEDS: MULTIVITAMIN TABLET PO SCH (20:19)
[2018-10-31] MEDS ORDERED: EPOETIN ALFA 10,000 UNIT/ML VIAL SQ SCH (21:00)
[2018-11-01] VITALS (15 sets, daily range): BP systolic 110–177; BP diastolic 53–73
[2018-11-01 04:34] LABS: MEAN CORPUSCULAR HEMOGLOBIN 30.6 pg (27.0-33.0); MEAN CORPUSCULAR HGB CONC 34.8 g/dL (32.0-36.0); MEAN CORPUSCULAR VOLUME 87.9 fL (79-99); PLATELET COUNT (AUTO) 227 K/uL (130-400); RED BLOOD CELL COUNT(AUTO) 2.24 MIL/uL (4.50-6.20); RED CELL DISTRIBUTION WIDTH 18.3 % (11.0-15.5); WHITE BLOOD COUNT (AUTO) 3.3 K/uL (4.8-10.8)
[2018-11-01 04:37] LABS: CREATININE 1.3 mg/dL (0.5-1.5)
[2018-11-01 04:51] LABS: HEMATOCRIT 19.7 % (42-54)
--- NOTE | 2018-11-01 04:55 | NUR ---
CALL PLACED FOR CALLBACK REGARDING H AND H 05-RETURN CALL FROM A [employer] MEDICAL BILLER, ADVISED OF H AND H. ORDERS RECEIVED AND PLACED IN THE COMPUTER. LAB NOTIFIED OF TYPE AND SCREEN AND PRBC TO BE PLACED ON HOLD NOTE NURSING COMMUNICATION.
[2018-11-01] MEDS: IPRATROPIUM/ALBUTEROL SULFATE 3 ML SOLUTION IH SCH ×4 (05:17→23:25)
[2018-11-01] MEDS: BUDESONIDE 0.5 MG/2 ML INH IH SCH ×2 (05:17→18:43)
[2018-11-01] MEDS: FUROSEMIDE 10 MG/ML 2ML VIAL IV SCH ×3 (05:48→20:56)
[2018-11-01] MEDS: GLIPIZIDE 5 MG TABLET PO SCH (06:04)
[2018-11-01] MEDS: INSULIN HUMULIN R 100 UNIT/ML 3ML SQ SCH ×4 (06:04→21:00)
[2018-11-01] MEDS: IRON SUCROSE COMPLEX 100 MG in SODIUM CHLORIDE 0.9% 50 ML IV SCH (07:59)
[2018-11-01] MEDS: MORPHINE SULFATE 2 MG/ML 1ML SYG IVP PRN ×3 (08:00→21:16)
[2018-11-01] MEDS: FAMOTIDINE/PF 20 MG/2 ML VIAL IV SCH (08:01)
[2018-11-01] MEDS: LIDOCAINE 5% TOPICAL PATCH TP SCH (09:00)
[2018-11-01] MEDS ORDERED: SODIUM CHLORIDE 0.9% 250 ML IV ONE (09:14)
[2018-11-01] MEDS ORDERED: COMPOUND IV MISC 1 EACH IVSOLN MISC PRN (11:30)
--- NOTE | 2018-11-01 12:10 | NUR ---
Patient taken to Endoscopy in stable condition.
[2018-11-01] MEDS ORDERED: LIDOCAINE HCL 1% 20 ML VIAL ONE (12:21)
--- NOTE | 2018-11-01 13:11 | NUR ---
DC PLAN VISITED WITH PATIENT. PATIENT RESTING. PATIENT HAS HAD SEVERAL READMISSIONS. DR. ALVAREZ ASKED FOR BRONCH FROM DR. DANGELO SCHEDULED FOR TODAY. PATIENT FROM HISTORY LIVES WITH SPOUSE. SEMI INDEPENDENT. PATIENT HAS WALKER, WHEEL CHAIR, 02 WITH [facility], ROLLATOR WALKER, NEBULIZER. ONCE PATIENT IS STABLE WILL DISCUSS DC PLAN AGAIN. PATIENT HAS BEEN TO SEVERAL SNF AND TO LTAC. LAST ADMISSION WANTED TO GO HOME. Addendum: 11/01/18 at 1313 by KUMAR FREEDMAN RN CM Amended: Links added.
--- NOTE | 2018-11-01 14:11 | NUR ---
Patient returned from Endoscopy s/p bronchoscopy. Washing and biopsy done. patient in stable condition. VS stable. Awake alert and oriented. bed at lowest position, call light placed within reach. Denies chest pain or SOB. No other question or concerns voiced.
[2018-11-01] MEDS: AMLODIPINE BESYLATE 5 MG TAB PO SCH (15:35)
[2018-11-01] MEDS: GABAPENTIN 300 MG CAPSULE PO SCH ×2 (15:35→20:57)
[2018-11-01] MEDS: LUBIPROSTONE 24 MCG CAP PO SCH ×2 (15:35→20:56)
[2018-11-01] MEDS: CLONIDINE HCL 0.1 MG TABLET PO SCH ×2 (15:35→15:45)
[2018-11-01] MEDS: SPIRONOLACTONE 25 MG TAB PO SCH (15:35)
[2018-11-01] MEDS: LABETALOL HCL 200 MG TABLET PO SCH ×2 (15:36→20:57)
[2018-11-01] MEDS ORDERED: GLIP5TAB11 PO (17:18)
[2018-11-01 20:37] LABS: HEMATOCRIT 31.1 % (42-54)
[2018-11-01] MEDS: MULTIVITAMIN TABLET PO SCH (20:57)
[2018-11-02] VITALS (7 sets, daily range): BP systolic 120–166; BP diastolic 56–72
[2018-11-02] MEDS: CLONIDINE HCL 0.1 MG TABLET PO SCH ×3 (00:06→16:00)
[2018-11-02 03:32] LABS: HEMATOCRIT 26.6 % (42-54); MEAN CORPUSCULAR HEMOGLOBIN 28.6 pg (27.0-33.0); MEAN CORPUSCULAR HGB CONC 33.7 g/dL (32.0-36.0); MEAN CORPUSCULAR VOLUME 85.1 fL (79-99); PLATELET COUNT (AUTO) 247 K/uL (130-400); RED BLOOD CELL COUNT(AUTO) 3.13 MIL/uL (4.50-6.20); RED CELL DISTRIBUTION WIDTH 17.1 % (11.0-15.5); WHITE BLOOD COUNT (AUTO) 5.1 K/uL (4.8-10.8)
[2018-11-02 03:39] LABS: ALBUMIN 1.8 g/dL (3.5-5.0); CREATININE 1.2 mg/dL (0.5-1.5); POTASSIUM 3.9 mmol/L (3.5-5.1)
[2018-11-02 03:40] LABS: B-TYPE NATRIURETIC PEPTIDE 980 pg/mL (0-100)
[2018-11-02] MEDS: FUROSEMIDE 10 MG/ML 2ML VIAL IV SCH (05:45)
[2018-11-02] MEDS: INSULIN HUMULIN R 100 UNIT/ML 3ML SQ SCH ×4 (05:46→22:54)
[2018-11-02] MEDS: IPRATROPIUM/ALBUTEROL SULFATE 3 ML SOLUTION IH SCH ×4 (06:53→23:16)
[2018-11-02] MEDS: BUDESONIDE 0.5 MG/2 ML INH IH SCH ×2 (06:53→18:51)
[2018-11-02] MEDS: LIDOCAINE 5% TOPICAL PATCH TP SCH (09:00)
[2018-11-02] MEDS: LUBIPROSTONE 24 MCG CAP PO SCH ×2 (09:57→19:46)
[2018-11-02] MEDS: AMLODIPINE BESYLATE 5 MG TAB PO SCH (09:58)
[2018-11-02] MEDS: FAMOTIDINE/PF 20 MG/2 ML VIAL IV SCH (09:58)
[2018-11-02] MEDS: LABETALOL HCL 200 MG TABLET PO SCH ×2 (09:58→20:20)
[2018-11-02] MEDS: GABAPENTIN 300 MG CAPSULE PO SCH ×2 (09:58→20:19)
[2018-11-02] MEDS: SPIRONOLACTONE 25 MG TAB PO SCH (09:58)
[2018-11-02] MEDS: MORPHINE SULFATE 2 MG/ML 1ML SYG IVP PRN ×3 (10:13→22:53)
[2018-11-02] MEDS: IRON SUCROSE COMPLEX 100 MG in SODIUM CHLORIDE 0.9% 50 ML IV SCH (10:15)
[2018-11-02] MEDS: TAMSULOSIN HCL 0.4 MG CAP.ER.24H PO SCH (11:28)
[2018-11-02] MEDS: FUROSEMIDE 80 MG TABLET PO SCH (11:29)
[2018-11-02] MEDS: MULTIVITAMIN TABLET PO SCH (20:20)
[2018-11-03] MEDS: CLONIDINE HCL 0.1 MG TABLET PO SCH ×3 (00:37→16:00)
[2018-11-03] MEDS: MORPHINE SULFATE 2 MG/ML 1ML SYG IVP PRN ×4 (03:44→17:58)
[2018-11-03 04:17] LABS: HEMATOCRIT 27.7 % (42-54); MEAN CORPUSCULAR HEMOGLOBIN 30.3 pg (27.0-33.0); MEAN CORPUSCULAR HGB CONC 34.7 g/dL (32.0-36.0); MEAN CORPUSCULAR VOLUME 87.4 fL (79-99); PLATELET COUNT (AUTO) 237 K/uL (130-400); RED BLOOD CELL COUNT(AUTO) 3.17 MIL/uL (4.50-6.20); RED CELL DISTRIBUTION WIDTH 17.5 % (11.0-15.5); WHITE BLOOD COUNT (AUTO) 5.1 K/uL (4.8-10.8)
[2018-11-03 04:29] LABS: ALBUMIN 1.8 g/dL (3.5-5.0); CREATININE 1.3 mg/dL (0.5-1.5); MAGNESIUM 1.6 mg/dL (1.80-2.40); POTASSIUM 4.2 mmol/L (3.5-5.1)
[2018-11-03 04:41] VITALS: BP 166/74
[2018-11-03 04:43] LABS: B-TYPE NATRIURETIC PEPTIDE 615 pg/mL (0-100)
[2018-11-03] MEDS: IPRATROPIUM/ALBUTEROL SULFATE 3 ML SOLUTION IH SCH ×3 (06:16→18:27)
[2018-11-03] MEDS: BUDESONIDE 0.5 MG/2 ML INH IH SCH ×2 (06:16→19:03)
[2018-11-03] MEDS: INSULIN HUMULIN R 100 UNIT/ML 3ML SQ SCH ×4 (06:31→21:00)
[2018-11-03 07:00] VITALS: BP 162/67
[2018-11-03] MEDS: FAMOTIDINE/PF 20 MG/2 ML VIAL IV SCH (08:27)
[2018-11-03] MEDS: LUBIPROSTONE 24 MCG CAP PO SCH ×2 (08:27→22:17)
[2018-11-03] MEDS: LABETALOL HCL 200 MG TABLET PO SCH ×2 (08:28→22:17)
[2018-11-03] MEDS: AMLODIPINE BESYLATE 5 MG TAB PO SCH (08:28)
[2018-11-03] MEDS: FUROSEMIDE 80 MG TABLET PO SCH (08:28)
[2018-11-03] MEDS: TAMSULOSIN HCL 0.4 MG CAP.ER.24H PO SCH (08:28)
[2018-11-03] MEDS: GABAPENTIN 300 MG CAPSULE PO SCH ×2 (08:28→22:17)
[2018-11-03] MEDS: IRON SUCROSE COMPLEX 100 MG in SODIUM CHLORIDE 0.9% 50 ML IV SCH (08:29)
[2018-11-03] MEDS: SPIRONOLACTONE 25 MG TAB PO SCH (08:29)
[2018-11-03] MEDS: LIDOCAINE 5% TOPICAL PATCH TP SCH (08:39)
[2018-11-03] MEDS ORDERED: FUROSEMIDE 80 MG TABLET PO SCH (09:00)
[2018-11-03 11:00] VITALS: BP 165/71
[2018-11-03 16:00] VITALS: BP 142/57
--- NOTE | 2018-11-03 17:31 | NUR ---
Nutrition intervention: Nutrition notification for low BMI, and low albumin. Pt admitted for recurrent pulmonary effusion, pulmonary edema. Pt on heart healthy diet, 75gm CCD. Pt underweight and malnourished with BMI 15.1. Alb 1.8. IBW% 63%. pt with increased energy needs to help with wt gain. Pt agreeable to glucerna TID and HS snack. Pt with missing teeth, recommend finely chopped meals, however states he can chew his bread. Diet order to be updated by RD to reflect appropriate diet placement. Recommendations: Please consult RD as nutrition concerns arise. Addendum: 11/03/18 at [address] Amended: Links added.
[2018-11-03] MEDS: MEGESTROL 400 MG/10 ML UDCUP PO SCH (17:52)
[2018-11-03 19:18] VITALS: BP 146/58
[2018-11-03] MEDS ORDERED: HYDROMORPHONE HCL 0.5 MG/0.5 ML ML IVP PRN (20:15)
[2018-11-03] MEDS: MULTIVITAMIN TABLET PO SCH (22:17)
[2018-11-03 23:51] VITALS: BP 134/57
[2018-11-04] MEDS ORDERED: MORPHINE SULFATE 2 MG/ML 1ML SYG ONE (00:59)
[2018-11-04] MEDS ORDERED: MORPHINE SULFATE 4 MG/1ML SYG IV PRN (01:00)
[2018-11-04] MEDS: CLONIDINE HCL 0.1 MG TABLET PO SCH ×2 (01:03→10:40)
[2018-11-04] MEDS: IPRATROPIUM/ALBUTEROL SULFATE 3 ML SOLUTION IH SCH ×3 (01:05→11:23)
[2018-11-04 04:02] VITALS: BP 124/59
[2018-11-04 04:45] LABS: HEMATOCRIT 27.6 % (42-54); MEAN CORPUSCULAR HEMOGLOBIN 29.8 pg (27.0-33.0); MEAN CORPUSCULAR HGB CONC 33.9 g/dL (32.0-36.0); MEAN CORPUSCULAR VOLUME 87.9 fL (79-99); PLATELET COUNT (AUTO) 270 K/uL (130-400); RED BLOOD CELL COUNT(AUTO) 3.13 MIL/uL (4.50-6.20); RED CELL DISTRIBUTION WIDTH 17.6 % (11.0-15.5); WHITE BLOOD COUNT (AUTO) 5.4 K/uL (4.8-10.8)
[2018-11-04 04:56] LABS: B-TYPE NATRIURETIC PEPTIDE 696 pg/mL (0-100)
[2018-11-04 05:00] LABS: ALBUMIN 1.7 g/dL (3.5-5.0); CREATININE 1.3 mg/dL (0.5-1.5); MAGNESIUM 1.7 mg/dL (1.80-2.40); PHOSPHORUS 3.3 mg/dL (2.5-4.9); POTASSIUM 4.2 mmol/L (3.5-5.1)
[2018-11-04] MEDS ORDERED: MAGNESIUM 2GM PREMIX 50ML 50 ML IV ONE (05:19)
[2018-11-04] MEDS ORDERED: MAGNESIUM 2GM PREMIX 50ML 50 ML IV PRN (05:30)
[2018-11-04] MEDS: BUDESONIDE 0.5 MG/2 ML INH IH SCH (06:25)
[2018-11-04] MEDS: INSULIN HUMULIN R 100 UNIT/ML 3ML SQ SCH (06:25)
[2018-11-04 07:00] VITALS: BP 160/62
--- NOTE | 2018-11-04 08:00 | NUR ---
ASSESSMENT ENCOUNTERED PT ASLEEP BUT AROUSEABLE, A&OX3, CALM COOPERATIVE AND DOES NOT APPEAR TO BE IN ANY DISTRESS NOR ANY NEURO DEFICITS PRESENT. PT DENIES PAIN, SOB, NAUSEA. PT IS ABLE TO TOLERATE FOODS, FLUIDS WITH NO THROAT CLEARING OR COUGH. PT RESTING COMFORTABLY, CALL LIGHT WITHIN REACH, FAMILY AT BEDSIDE.
[2018-11-04] MEDS ORDERED: METHYLPREDNISOLONE SOD SUCC 40MG/ML 1ML IVP SCH (09:00)
[2018-11-04] MEDS ORDERED: PREDNISONE 20 MG TABLET PO SCH (09:30)
[2018-11-04] MEDS: LUBIPROSTONE 24 MCG CAP PO SCH (10:39)
[2018-11-04] MEDS: LABETALOL HCL 200 MG TABLET PO SCH (10:39)
[2018-11-04] MEDS: AMLODIPINE BESYLATE 5 MG TAB PO SCH (10:39)
[2018-11-04] MEDS: TAMSULOSIN HCL 0.4 MG CAP.ER.24H PO SCH (10:39)
[2018-11-04] MEDS: FUROSEMIDE 80 MG TABLET PO SCH (10:39)
[2018-11-04 10:40] VITALS: BP 160/62
[2018-11-04] MEDS: MEGESTROL 400 MG/10 ML UDCUP PO SCH (10:40)
[2018-11-04] MEDS: GABAPENTIN 300 MG CAPSULE PO SCH (10:40)
[2018-11-04] MEDS: SPIRONOLACTONE 25 MG TAB PO SCH (10:40)
[2018-11-04] MEDS: FAMOTIDINE/PF 20 MG/2 ML VIAL IV SCH (10:40)
[2018-11-04] MEDS: LIDOCAINE 5% TOPICAL PATCH TP SCH (10:41)
[2018-11-04] MEDS: IRON SUCROSE COMPLEX 100 MG in SODIUM CHLORIDE 0.9% 50 ML IV SCH (10:41)
[2018-11-04] MEDS ORDERED: FURO80TA3 PO (10:45)
[2018-11-04] MEDS ORDERED: POTA20TA12 PO (10:46)
--- NOTE | 2018-11-04 11:00 | NUR ---
AMBULATION PT AMBULATING TO NURSES'S STATION AND BACK TO BED, GAIT SLOW BUT STEADY WITH WALKER AND PORTABLE O2, TOLERATED WELL, O2SATS 93% DURING AND POST AMBULATION ON 3LNC. CALL LIGHT WITHIN REACH, FAMILY AT BEDSIDE.
--- NOTE | 2018-11-04 12:00 | NUR ---
DISCHARGE INSTRUCTIONS GIVEN, PIV REMOVED AND INTACT, DISCHARGED HOME TO FAMILY VEHICLE VIA WHEELCHAIR.
== END 2018-11-04 13:01 | disposition home or self-care (01) | DRG 291 ==
LOC: EDH 11:52 → EDHIP 15:05 → 2AH 19:53
PROVIDERS: ADMIT Internal Medicine; ATTEND Internal Medicine
PROC: 5A09357 Assistance with Respiratory Ventilation, Less than 24 Consecutive Hours, Continuous Positive Airway Pressure (ICD-10-PCS; 2018-10-31)
PROC: 0B9J8ZX Drainage of Left Lower Lung Lobe, Via Natural or Artificial Opening Endoscopic, Diagnostic (ICD-10-PCS; principal; 2018-11-01)
PROC: 0BC78ZZ Extirpation of Matter from Left Main Bronchus, Via Natural or Artificial Opening Endoscopic (ICD-10-PCS; 2018-11-01)
PROC: 30233N1 Transfusion of Nonautologous Red Blood Cells into Peripheral Vein, Percutaneous Approach (ICD-10-PCS; 2018-11-01)
DX: I11.0 Hypertensive heart disease with heart failure (principal); I50.31 Acute diastolic (congestive) heart failure; J96.21 Acute and chronic respiratory failure with hypoxia; E43 Unspecified severe protein-calorie malnutrition; R04.2 Hemoptysis; D62 Acute posthemorrhagic anemia; R64 Cachexia; T17.590A Other foreign object in bronchus causing asphyxiation, initial encounter; Z68.1 Body mass index [BMI] 19.9 or less, adult; K74.60 Unspecified cirrhosis of liver; E78.5 Hyperlipidemia, unspecified; G62.9 Polyneuropathy, unspecified; I25.10 Atherosclerotic heart disease of native coronary artery without angina pectoris; J43.9 Emphysema, unspecified; X58.XXXA Exposure to other specified factors, initial encounter; Z79.899 Other long term (current) drug therapy; Z82.3 Family history of stroke; Z82.49 Family history of ischemic heart disease and other diseases of the circulatory system; Z87.891 Personal history of nicotine dependence; Z95.5 Presence of coronary angioplasty implant and graft; Z99.81 Dependence on supplemental oxygen; Y93.89 Activity, other specified; Y92.89 Other specified places as the place of occurrence of the external cause; Y99.8 Other external cause status
CPT/HCPCS: 36415; 71045; 80048; 80053; 82040; 82550; 82948; 83735; 83880; 84100; 84484; 85014; 85018; 85025; 85027; 85610; 85730; 86850; 86900; 86901; 86922; 87071; 87101; 87116; 87205; 87206; 93005; 94640; 94660; 94664; 99291; G0378; J0360; J0885; J1756; J1815; J1940; J2270; J2920; J3475; J3490; J7030; P9016; P9046

== ENCOUNTER 2018-11-16 12:34 | Inpatient (IN) | payer OTHER | END 2018-11-17 17:03 | LOC: EDH 12:34 → EDHIP 15:32 → 2DH 17:06 | DX: I48.91 Unspecified atrial fibrillation (principal); I50.31 Acute diastolic (congestive) heart failure; M84.421A Pathological fracture, right humerus, initial encounter for fracture; I48.92 Unspecified atrial flutter; E11.65 Type 2 diabetes mellitus with hyperglycemia; E11.22 Type 2 diabetes mellitus with diabetic chronic kidney disease; R09.02 Hypoxemia; J44.9 Chronic obstructive pulmonary disease, unspecified ==

== ENCOUNTER 2018-12-12 14:34 | Emergency (ER) | payer OTHER ==
[~2018-12-12 14:34] MED LIST changes: -FURO40TA7 PO; +FURO80TA3 PO; -GLIP10TA9 PO; +GLIP5TAB11 PO
[2018-12-12] MEDS ORDERED: IPRATROPIUM/ALBUTEROL SULFATE 3 ML SOLUTION IH ONE (14:54)
[2018-12-12 15:09] LABS: ABG BASE EXCESS 0.7 mmol/L (-2.0-3.0); ABG HCO3 24.4 mmol/L (21.0-28.0); ABG OXYGEN SATURATION 99.3 % (95.0-99.0); ABG PCO2 36 mmHg (35-48)
[2018-12-12 15:11] LABS: BASOPHILS % (AUTO) 0.7 % (0.0-5.0); EOSINOPHILS % (AUTO) 0.5 % (0.0-8.0); HEMATOCRIT 24.7 % (42-54); LYMPHOCYTES % (AUTO) 8.7 % (21.0-51.0); MEAN CORPUSCULAR HEMOGLOBIN 30.2 pg (27.0-33.0); MEAN CORPUSCULAR HGB CONC 34.3 g/dL (32.0-36.0); MONOCYTES % (AUTO) 5.3 % (3.0-13.0); NEUTROPHILS % (AUTO) 84.8 % (40.0-77.0); PLATELET COUNT (AUTO) 566 K/uL (130-400); RED BLOOD CELL COUNT(AUTO) 2.81 MIL/uL (4.50-6.20); RED CELL DISTRIBUTION WIDTH 14.7 % (11.0-15.5); WHITE BLOOD COUNT (AUTO) 6.9 K/uL (4.8-10.8)
[2018-12-12 15:28] LABS: INR 0.97 (0.85-1.15); PARTIAL THROMBOPLASTIN TIME 30.9 SEC (26.3-35.5); PROTHROMBIN TIME 10.2 SEC (9.6-11.6)
[2018-12-12 15:38] LABS: ALBUMIN 2.3 g/dL (3.5-5.0); BILIRUBIN,TOTAL 0.3 mg/dL (0.2-1.0); CREATININE 1.7 mg/dL (0.5-1.5); POTASSIUM 5.1 mmol/L (3.5-5.1); TOTAL PROTEIN, SERUM 8.1 g/dL (6.0-8.3)
[2018-12-12 15:53] LABS: B-TYPE NATRIURETIC PEPTIDE 1310 pg/mL (0-100)
[2018-12-12 15:56] LABS: CREATINE KINASE, TOTAL 23 U/L (21-232); MYOGLOBIN 57 ng/mL (10-92); PLATELET MORPHOLOGY PLT CLUMPS PRESENT; TROPONIN I < 0.04 ng/mL (0.00-0.06)
[2018-12-12] MEDS ORDERED: ONDANSETRON HCL 4 MG/2 ML VIAL ONE (16:31)
[2018-12-12] MEDS ORDERED: MORPHINE SULFATE 4 MG/1ML SYG ONE (16:32)
[2018-12-12 16:54] LABS: APPEARANCE,URINE Clear (CLEAR); BILIRUBIN,URINE Negative (NEGATIVE); COLOR,URINE Yellow (YELLOW); GLUCOSE, URINE (UA) >=1000 mg/dL (NEGATIVE); KETONES,URINE Negative (NEGATIVE); LEUKOCYTE ESTERASE ,URINE Negative (NEGATIVE); NITRATE,URINE Negative (NEGATIVE); OCCULT BLOOD,URINE Small (NEGATIVE); PH,URINE 6.5 (5.0-8.0); PROTEIN,URINE 300 mg/dL (NEGATIVE); UROBILINOGEN,URINE 0.2 mg/dL (0.2-1.0)
[2018-12-12] MEDS ORDERED: FUROSEMIDE 10 MG/ML 2ML VIAL ONE (17:07)
[2018-12-12] MEDS ORDERED: ASPIRIN 325 MG TABLET ONE (17:07)
[2018-12-12] MEDS ORDERED: FUROSEMIDE 10 MG/ML 4ML VIAL ONE (17:07)
[2018-12-12] MEDS ORDERED: LABETALOL 20 MG/4 ML DISP.SYRIN IV ONE (17:08)
[2018-12-12] MEDS ORDERED: INSULIN HUMULIN R 100 UNIT/ML 3ML ONE (17:09)
[2018-12-12 17:18] LABS: BACTERIA,URINE Rare /HPF (None Seen); SQUAMOUS EPITHELIAL CELL,UR Rare /HPF (0-2); WBC,URINE 0-1 /HPF (0-1)
== END 2018-12-12 17:52 | disposition left against medical advice (07) ==
LOC: EDH 14:34
DX: J90 Pleural effusion, not elsewhere classified (principal); R60.0 Localized edema; I13.0 Hypertensive heart and chronic kidney disease with heart failure and stage 1 through stage 4 chronic kidney disease, or unspecified chronic kidney disease; E11.22 Type 2 diabetes mellitus with diabetic chronic kidney disease; N18.9 Chronic kidney disease, unspecified; I50.9 Heart failure, unspecified; I25.10 Atherosclerotic heart disease of native coronary artery without angina pectoris
CPT/HCPCS: 36415; 36600; 71045; 80053; 81001; 82550 ×2; 82803; 83605; 83874 ×2; 83880; 84484 ×2; 85025; 85610; 85730; 87040 ×2; 87088; 93005; 94640; 96374; 96375; 99285; J1815; J1940 ×2; J2270; J2405

== ENCOUNTER 2019-01-18 13:40 | Inpatient (IN) | payer OTHER ==
[~2019-01-18] VITALS: Ht 180.3 cm; Wt 54.1 kg
[~2019-01-18 13:40] MED LIST changes: +CLOP75TA14 PO; +ERGO400C PO; +FOLI1TAB15 PO; +FURO40TA5 PO; -FURO80TA3 PO; +INSU100V12 SQ; +PANT40SU PO; +SANTO TP; +SERT50TA12 PO; +SIMV40TA59 PO; -SPIR25TA6 PO; +TRAZ-187 PO; +ZINC50TA71 PO
[2019-01-18 14:07] LABS: BASOPHILS % (AUTO) 0.1 % (0.0-5.0); HEMATOCRIT 25.2 % (42-54); MEAN CORPUSCULAR HEMOGLOBIN 29.4 pg (27.0-33.0); MEAN CORPUSCULAR HGB CONC 33.1 g/dL (32.0-36.0); NEUTROPHILS % (AUTO) 96.9 % (40.0-77.0); PLATELET COUNT (AUTO) 292 K/uL (130-400); RED BLOOD CELL COUNT(AUTO) 2.84 MIL/uL (4.50-6.20); RED CELL DISTRIBUTION WIDTH 16.5 % (11.0-15.5); WHITE BLOOD COUNT (AUTO) 28.9 K/uL (4.8-10.8)
[2019-01-18] MEDS ORDERED: ZOSYN 3.375GM+NS 50ML 50 ML IV ONE (14:10)
[2019-01-18] MEDS ORDERED: IPRATROPIUM/ALBUTEROL SULFATE 3 ML SOLUTION IH ONE ×2 (14:13→20:30)
[2019-01-18 14:27] LABS: INR 1.02 (0.85-1.15); PARTIAL THROMBOPLASTIN TIME 28.5 SEC (26.3-35.5); PROTHROMBIN TIME 10.7 SEC (9.6-11.6)
[2019-01-18 14:31] LABS: CARBON DIOXIDE 32 mmol/L (21-32); CHLORIDE 93 mmol/L (101-111); CREATININE 1.3 mg/dL (0.5-1.5); GLOMERULAR FILTR. RATE CALC 58 mL/min (>60); GLUCOSE,RANDOM 280 mg/dL (70-105); POTASSIUM 3.1 mmol/L (3.5-5.1); SODIUM SERUM 132 mmol/L (136-145); UREA NITROGEN, BLOOD 22 mg/dL (7-18)
[2019-01-18] MEDS ORDERED: SODIUM CHLORIDE 0.9% 1000ML 1,000 ML IV ONE (14:45)
[2019-01-18 14:52] LABS: ALANINE AMINOTRANSFERASE 16 U/L (12-78); ALBUMIN 1.8 g/dL (3.5-5.0); ASPARTATE AMINOTRANSFERASE 11 U/L (10-37); BILIRUBIN,TOTAL 0.5 mg/dL (0.2-1.0); CREATINE KINASE, TOTAL 14 U/L (21-232); TOTAL PROTEIN, SERUM 5.9 g/dL (6.0-8.3); TROPONIN I < 0.04 ng/mL (0.00-0.06)
[2019-01-18 15:12] LABS: MYOGLOBIN 41 ng/mL (10-92)
[2019-01-18] MEDS ORDERED: MEROPENEM 500 MG VIAL ONE (16:03)
[2019-01-18] MEDS ORDERED: VANCOMYCIN 1.25 GM in SODIUM CHLORIDE 0.9% 250 ML IV ONE (16:30)
[2019-01-18 16:53] LABS: APPEARANCE,URINE Clear (CLEAR); BILIRUBIN,URINE Negative (NEGATIVE); COLOR,URINE Yellow (YELLOW); GLUCOSE, URINE (UA) 500 mg/dL (NEGATIVE); KETONES,URINE Negative (NEGATIVE); LEUKOCYTE ESTERASE ,URINE Negative (NEGATIVE); NITRATE,URINE Negative (NEGATIVE); OCCULT BLOOD,URINE Small (NEGATIVE); PH,URINE 5.5 (5.0-8.0); PROTEIN,URINE >=1000 mg/dL (NEGATIVE); UROBILINOGEN,URINE 0.2 mg/dL (0.2-1.0)
[2019-01-18 17:10] LABS: WBC,URINE 0-1 /HPF (0-1)
[2019-01-18 17:11] LABS: BACTERIA,URINE Few /HPF (None Seen); SQUAMOUS EPITHELIAL CELL,UR Rare /HPF (0-2)
[2019-01-18 17:32] VITALS: BP 114/43
[2019-01-18] MEDS ORDERED: VANCOMYCIN PROTOCOL PER PHARMACY IV SCH (17:45)
[2019-01-18] MEDS ORDERED: SODIUM CHLORIDE 0.9% 10 ML VIAL IVP PRN (18:00)
[2019-01-18] MEDS ORDERED: ACETAMINOPHEN 325 MG TAB PO PRN ×2 (18:00)
[2019-01-18] MEDS ORDERED: ENOXAPARIN SODIUM 1 MG/KG SQ SCH (18:00)
[2019-01-18] MEDS ORDERED: ONDANSETRON HCL 4 MG/2 ML VIAL IVP PRN (18:00)
[2019-01-18] MEDS ORDERED: ENOXAPARIN SODIUM 60 MG/0.6 ML SQ SCH (18:00)
--- NOTE | 2019-01-18 18:30 | NUR ---
ADMISSION RECEIVED PT FROM ER, A&OX3, CALM COOPERATIVE AND DOES NOT APPEAR TO BE IN ANY DISTRESS NOR ANY NEURO DEFICITS PRESENT, PT C/O PRODUCTIVE PHLEGM AND COUGH. PT IN SEMI CADE'S POSITION, CALL LIGHT WITHIN REACH, FAMILY AT BEDSIDE.
[2019-01-18 19:15] VITALS: BP 160/70
[2019-01-18] MEDS ORDERED: PHARMACY COMMUNICATION MISC SCH (20:00)
[2019-01-18] MEDS: PHARMACY COMMUNICATION MISC SCH (20:00)
[2019-01-18] MEDS ORDERED: ACETYLCYSTEINE 20% 200MG/ML 4ML VIAL IH SCH (20:30)
[2019-01-18] MEDS ORDERED: INSULIN HUMULIN R 100 UNIT/ML 3ML SQ SCH (21:00)
[2019-01-18] MEDS ORDERED: INSULIN HUMULIN R 100 UNIT/ML 3ML ONE (21:17)
[2019-01-18] MEDS ORDERED: SODIUM CHLORIDE 0.9% 250 ML IV ONE (21:50)
[2019-01-18] MEDS: DOXYCYCLINE 100MG+NS 250ML 250 ML IV SCH (21:54)
[2019-01-18] MEDS: FUROSEMIDE 10 MG/ML 4ML VIAL IV SCH (21:57)
[2019-01-18] MEDS: CLONIDINE HCL 0.1 MG TABLET PO SCH (22:01)
[2019-01-18] MEDS ORDERED: INSULIN HUMULIN R 100 UNIT/ML 3ML IV SCH (22:30)
[2019-01-18] MEDS ORDERED: POTASSIUM CHLORIDE 20 MEQ ERTAB PO SCH (23:00)
[2019-01-18 23:25] VITALS: BP 159/62
[2019-01-18] MEDS: ACETYLCYSTEINE 20% 200MG/ML 4ML VIAL IH SCH (23:36)
[2019-01-18] MEDS: IPRATROPIUM/ALBUTEROL SULFATE 3 ML SOLUTION IH SCH (23:36)
[2019-01-19] VITALS (7 sets, daily range): BP systolic 93–161; BP diastolic 51–77
[2019-01-19] MEDS: MEROPENEM 500 MG VIAL IVP SCH ×4 (00:45→23:05)
[2019-01-19] MEDS: PHARMACY COMMUNICATION MISC SCH ×3 (04:00→20:00)
[2019-01-19] MEDS: VANCOMYCIN 500MG+NS 100ML 100 ML IV SCH ×2 (04:42→17:20)
[2019-01-19] MEDS: FUROSEMIDE 10 MG/ML 4ML VIAL IV SCH ×3 (04:42→21:12)
[2019-01-19] MEDS: INSULIN HUMULIN R 100 UNIT/ML 3ML SQ SCH ×4 (06:06→21:20)
[2019-01-19] MEDS: DOXYCYCLINE 100MG+NS 250ML 250 ML IV SCH ×2 (06:06→17:19)
[2019-01-19] MEDS: CLONIDINE HCL 0.1 MG TABLET PO SCH ×3 (06:06→22:04)
[2019-01-19] MEDS: IPRATROPIUM/ALBUTEROL SULFATE 3 ML SOLUTION IH SCH ×4 (06:39→23:28)
[2019-01-19] MEDS: ACETYLCYSTEINE 20% 200MG/ML 4ML VIAL IH SCH ×4 (06:39→23:28)
[2019-01-19] MEDS ORDERED: ENOXAPARIN SODIUM 60 MG/0.6 ML SQ SCH (09:00)
[2019-01-19] MEDS: LUBIPROSTONE 24 MCG CAP PO SCH ×2 (09:36→21:11)
[2019-01-19] MEDS: FAMOTIDINE/PF 20 MG/2 ML VIAL IV SCH (09:36)
[2019-01-19] MEDS: GABAPENTIN 300 MG CAPSULE PO SCH ×2 (09:37→21:12)
[2019-01-19] MEDS: LABETALOL HCL 200 MG TABLET PO SCH ×2 (09:37→21:12)
[2019-01-19] MEDS: LORAZEPAM 2 MG/ML 1 ML VIAL IVP PRN ×2 (13:02→22:06)
--- NOTE | 2019-01-19 13:21 | NUR ---
DCP FROM PREVIOUS VISIT WITH PATIENT AND AMY. PATIENT LIVES WITH SPOUSE. DEPENDENT. JAGDEEP BENAVIDES, W/C, 02 FROM [facility], PROVIDER. AMY NOT SURE IF HE WILL NEED FURTHER CARE/SNF RELATED TO WOUNDS. CM TO FOLLOW AND ASSIST NEEDED. Addendum: 01/19/19 at 1335 by KUMAR FREEDMAN RN CM Amended: Links added.
[2019-01-19 14:50] LABS: HEMATOCRIT 23.4 % (42-54); MEAN CORPUSCULAR HEMOGLOBIN 29.4 pg (27.0-33.0); MEAN CORPUSCULAR HGB CONC 32.7 g/dL (32.0-36.0); MEAN CORPUSCULAR VOLUME 89.8 fL (79-99); PLATELET COUNT (AUTO) 273 K/uL (130-400); RED CELL DISTRIBUTION WIDTH 16.8 % (11.0-15.5); WHITE BLOOD COUNT (AUTO) 16.7 K/uL (4.8-10.8)
[2019-01-19 14:58] LABS: CREATININE 1.3 mg/dL (0.5-1.5); POTASSIUM 3.4 mmol/L (3.5-5.1)
[2019-01-19 15:01] LABS: INR 1.12 (0.85-1.15); PARTIAL THROMBOPLASTIN TIME 38.5 SEC (26.3-35.5); PROTHROMBIN TIME 11.7 SEC (9.6-11.6)
[2019-01-19 15:03] LABS: ALBUMIN 1.6 g/dL (3.5-5.0); BILIRUBIN,TOTAL 0.4 mg/dL (0.2-1.0); TOTAL PROTEIN, SERUM 5.8 g/dL (6.0-8.3)
[2019-01-19 15:10] LABS: BAND NEUTROPHILS % (MANUAL) 1 % (0-2); LYMPHOCYTES % (MANUAL) 4 % (22-44); SEGMENTED NEUTROPHILS % 95 % (40-70)
[2019-01-19 15:11] LABS: MAN.DIFF COMMENT-IMPRESSION MANUAL DIFFERENTIAL; PLATELET MORPHOLOGY COMMENT ADEQUATE
[2019-01-19] MEDS ORDERED: INSULIN GLARGINE 100 UNITS/ML 10 ML VIAL SQ SCH (21:00)
[2019-01-19] MEDS ORDERED: POTASSIUM CHLORIDE 20 MEQ ERTAB PO ONE (21:17)
[2019-01-19] MEDS: TRAZODONE HCL 100 MG TABLET PO SCH (21:18)
[2019-01-19] MEDS: SERTRALINE HCL 50 MG TABLET PO SCH (21:18)
[2019-01-19] MEDS ORDERED: POTASSIUM CHLORIDE 20MEQ/100ML 100 ML IV PRN (22:45)
[2019-01-19] MEDS ORDERED: LIDOCAINE HCL-MPF 1% 2ML VIAL IVP PRN (22:45)
[2019-01-19] MEDS ORDERED: POTASSIUM CHLORIDE 10% ELIXIR 20 MEQ/15 ML UDCUP PO PRN (22:45)
[2019-01-19] MEDS: POTASSIUM CHLORIDE 20 MEQ ERTAB PO PRN (23:05)
[2019-01-20 03:26] LABS: BASOPHILS % (AUTO) 0.2 % (0.0-5.0); EOSINOPHILS % (AUTO) 0.4 % (0.0-8.0); LYMPHOCYTES % (AUTO) 4.3 % (21.0-51.0); MEAN CORPUSCULAR HEMOGLOBIN 30.1 pg (27.0-33.0); MEAN CORPUSCULAR HGB CONC 33.9 g/dL (32.0-36.0); MEAN CORPUSCULAR VOLUME 88.6 fL (79-99); MONOCYTES % (AUTO) 2.6 % (3.0-13.0); NEUTROPHILS % (AUTO) 92.5 % (40.0-77.0); PLATELET COUNT (AUTO) 270 K/uL (130-400); RED BLOOD CELL COUNT(AUTO) 2.22 MIL/uL (4.50-6.20); RED CELL DISTRIBUTION WIDTH 16.4 % (11.0-15.5); WHITE BLOOD COUNT (AUTO) 14.4 K/uL (4.8-10.8)
[2019-01-20 03:33] LABS: HEMATOCRIT 19.7 % (42-54)
[2019-01-20 03:55] VITALS: BP 120/58
[2019-01-20] MEDS: PHARMACY COMMUNICATION MISC SCH ×2 (04:00→12:00)
[2019-01-20] MEDS: VANCOMYCIN 500MG+NS 100ML 100 ML IV SCH (04:07)
[2019-01-20] MEDS: FUROSEMIDE 10 MG/ML 4ML VIAL IV SCH ×3 (05:02→20:57)
[2019-01-20 05:19] LABS: CREATININE 1.3 mg/dL (0.5-1.5); POTASSIUM 3.2 mmol/L (3.5-5.1)
[2019-01-20] MEDS ORDERED: DEXTROSE 50%-WATER 50 ML DISP.SYRIN IV ONE (05:31)
[2019-01-20] MEDS: DOXYCYCLINE 100MG+NS 250ML 250 ML IV SCH ×2 (05:41→19:20)
[2019-01-20] MEDS ORDERED: DEXTROSE 50%-WATER 50 ML DISP.SYRIN IV PRN (05:45)
[2019-01-20] MEDS ORDERED: GLUCAGON 1MG KIT 1 MG ML IM PRN (05:45)
[2019-01-20] MEDS: IPRATROPIUM/ALBUTEROL SULFATE 3 ML SOLUTION IH SCH ×4 (06:00→23:09)
[2019-01-20] MEDS: ACETYLCYSTEINE 20% 200MG/ML 4ML VIAL IH SCH ×4 (06:00→23:09)
[2019-01-20] MEDS: CLONIDINE HCL 0.1 MG TABLET PO SCH ×3 (06:33→20:57)
[2019-01-20] MEDS: INSULIN HUMULIN R 100 UNIT/ML 3ML SQ SCH ×3 (06:35→16:27)
[2019-01-20 07:00] VITALS: BP 134/59
[2019-01-20] MEDS ORDERED: COMPOUND IV REFRIGERATED 1 EACH IVSOLN MISC PRN (07:15)
--- NOTE | 2019-01-20 08:30 | NUR ---
TRANSFUSION OF 1 UNIT PRBC COMPLETED WITHOUT REACTION.
[2019-01-20] MEDS ORDERED: ENOXAPARIN SODIUM 30 MG/0.3 ML SQ SCH (09:00)
[2019-01-20] MEDS: MEROPENEM 500 MG VIAL IVP SCH ×3 (09:05→23:59)
[2019-01-20] MEDS: LABETALOL HCL 200 MG TABLET PO SCH ×2 (09:06→20:57)
[2019-01-20] MEDS: FAMOTIDINE/PF 20 MG/2 ML VIAL IV SCH ×2 (09:06→20:56)
[2019-01-20] MEDS: LUBIPROSTONE 24 MCG CAP PO SCH (09:06)
[2019-01-20] MEDS: GABAPENTIN 300 MG CAPSULE PO SCH ×2 (09:06→20:56)
[2019-01-20] MEDS: LORAZEPAM 2 MG/ML 1 ML VIAL IVP PRN ×2 (10:22→16:28)
[2019-01-20 11:00] VITALS: BP 157/57
[2019-01-20] MEDS: POTASSIUM CHLORIDE 20 MEQ ERTAB PO PRN (14:03)
[2019-01-20 16:00] VITALS: BP 143/54
--- NOTE | 2019-01-20 16:10 | NUR ---
WOUND CARE DONE TO SACRAL WOUNDS. CLEANSED WITH SALINE. APPLIED SANTYL OINTMENT REQUESTED BY . DAHLIA PATCH TO COVER 2 WOUNDS.
--- NOTE | 2019-01-20 18:30 | NUR ---
AIR MATTRESS IN PLACE ORDERED.
--- NOTE | 2019-01-20 19:14 | NUR ---
REPORTED TO BARBARA Ca MOST CURRENT RESULTS. NO ORDERS MADE.
[2019-01-20 19:37] VITALS: BP 163/78
[2019-01-20] MEDS: TRAZODONE HCL 100 MG TABLET PO SCH (20:56)
[2019-01-20] MEDS: SERTRALINE HCL 50 MG TABLET PO SCH (20:58)
[2019-01-20] MEDS ORDERED: INSULIN GLARGINE 100 UNITS/ML 10 ML VIAL SQ SCH (21:00)
[2019-01-20 23:32] VITALS: BP 161/69
[2019-01-21] MEDS: LORAZEPAM 2 MG/ML 1 ML VIAL IVP PRN ×2 (00:08→10:48)
[2019-01-21 03:20] VITALS: BP 162/68
[2019-01-21 03:47] LABS: BASOPHILS % (AUTO) 0.2 % (0.0-5.0); EOSINOPHILS % (AUTO) 0.1 % (0.0-8.0); HEMATOCRIT 24.2 % (42-54); LYMPHOCYTES % (AUTO) 5.9 % (21.0-51.0); MEAN CORPUSCULAR HEMOGLOBIN 29.3 pg (27.0-33.0); MEAN CORPUSCULAR VOLUME 86.2 fL (79-99); MONOCYTES % (AUTO) 2.6 % (3.0-13.0); NEUTROPHILS % (AUTO) 91.2 % (40.0-77.0); PLATELET COUNT (AUTO) 244 K/uL (130-400); RED BLOOD CELL COUNT(AUTO) 2.81 MIL/uL (4.50-6.20); RED CELL DISTRIBUTION WIDTH 17.9 % (11.0-15.5); WHITE BLOOD COUNT (AUTO) 11.5 K/uL (4.8-10.8)
[2019-01-21 04:27] LABS: ALBUMIN 1.6 g/dL (3.5-5.0); BILIRUBIN,TOTAL 0.4 mg/dL (0.2-1.0); CREATININE 1.3 mg/dL (0.5-1.5); POTASSIUM 3.8 mmol/L (3.5-5.1); TOTAL PROTEIN, SERUM 5.7 g/dL (6.0-8.3)
[2019-01-21] MEDS: FUROSEMIDE 10 MG/ML 4ML VIAL IV SCH ×2 (05:42→13:43)
[2019-01-21] MEDS: DOXYCYCLINE 100MG+NS 250ML 250 ML IV SCH (05:43)
[2019-01-21] MEDS: CLONIDINE HCL 0.1 MG TABLET PO SCH ×3 (05:44→20:20)
[2019-01-21] MEDS ORDERED: VANCOMYCIN 750MG + NS 250 ML IV SCH ×2 (06:00)
[2019-01-21] MEDS: IPRATROPIUM/ALBUTEROL SULFATE 3 ML SOLUTION IH SCH ×4 (06:20→23:06)
[2019-01-21] MEDS: ACETYLCYSTEINE 20% 200MG/ML 4ML VIAL IH SCH ×4 (06:20→23:06)
[2019-01-21 07:35] VITALS: BP 148/65
--- NOTE | 2019-01-21 08:40 | NUR ---
DR. BLAIR'S OFFICE CALLED FOR NEW CONSULT. AWAITING 'S CALLBACK AT EXT [phone]
[2019-01-21] MEDS ORDERED: LEVOFLOXACIN 750 MG/D5W 150 ML 150 ML IV SCH (09:00)
[2019-01-21] MEDS: GABAPENTIN 300 MG CAPSULE PO SCH ×2 (09:23→20:19)
[2019-01-21] MEDS: LABETALOL HCL 200 MG TABLET PO SCH ×2 (09:23→20:19)
[2019-01-21 11:05] VITALS: BP 188/79
[2019-01-21 15:20] VITALS: BP 152/60
--- NOTE | 2019-01-21 15:30 | NUR ---
WOUND CARE DONE TO 2 SACRAL ULCERS. PATIENT TOLERATED PROCEDURE.
[2019-01-21 19:21] VITALS: BP 169/80
--- NOTE | 2019-01-21 20:00 | NUR ---
PM note Awake, alert, and oriented x3. Denies any pain or shortness of breath. Instructed on use of call light for any assistance, verbalized understanding. Sinus rhythm in 70s with no ectopy. Waffle mattress in place. Side rails up.
[2019-01-21] MEDS: FAMOTIDINE/PF 20 MG/2 ML VIAL IV SCH (20:18)
[2019-01-21] MEDS: TRAZODONE HCL 100 MG TABLET PO SCH (20:19)
[2019-01-21] MEDS: SERTRALINE HCL 50 MG TABLET PO SCH (20:19)
[2019-01-21] MEDS ORDERED: INSULIN GLARGINE 100 UNITS/ML 10 ML VIAL SQ SCH (21:00)
[2019-01-21 23:05] VITALS: BP 158/68
[2019-01-22 03:24] VITALS: BP 154/65
[2019-01-22 03:53] LABS: HEMATOCRIT 24.1 % (42-54); MEAN CORPUSCULAR HEMOGLOBIN 29.6 pg (27.0-33.0); MEAN CORPUSCULAR VOLUME 87.1 fL (79-99); PLATELET COUNT (AUTO) 227 K/uL (130-400); RED BLOOD CELL COUNT(AUTO) 2.76 MIL/uL (4.50-6.20); RED CELL DISTRIBUTION WIDTH 16.8 % (11.0-15.5); WHITE BLOOD COUNT (AUTO) 6.2 K/uL (4.8-10.8)
[2019-01-22 04:07] LABS: B-TYPE NATRIURETIC PEPTIDE 1490 pg/mL (0-100)
[2019-01-22 04:19] LABS: ALBUMIN 1.6 g/dL (3.5-5.0); BILIRUBIN,TOTAL 0.4 mg/dL (0.2-1.0); CREATININE 1.2 mg/dL (0.5-1.5); POTASSIUM 3.5 mmol/L (3.5-5.1); TOTAL PROTEIN, SERUM 5.5 g/dL (6.0-8.3)
[2019-01-22] MEDS: IPRATROPIUM/ALBUTEROL SULFATE 3 ML SOLUTION IH SCH ×2 (06:33→11:03)
[2019-01-22] MEDS: ACETYLCYSTEINE 20% 200MG/ML 4ML VIAL IH SCH ×2 (06:33→11:03)
[2019-01-22] MEDS: CLONIDINE HCL 0.1 MG TABLET PO SCH (06:39)
[2019-01-22 07:22] VITALS: BP 165/67
--- NOTE | 2019-01-22 08:00 | NUR ---
ASSESSMENT ENCOUNTERED PT A&OX3, CALM COOPERATIVE AND DOES NOT APPEAR TO BE IN ANY DISTRESS NOR ANY NEURO DEFICITS PRESENT. PT DENIES PAIN, SOB, NAUSEA. PT IS ABLE TO TOLERATE FOODS, FLUIDS AND MEDICATION WITH NO THROAT CLEARING OR COUGH. PT IS ABLE TO TOLERATE UP TO BEDSIDE COMMODE WITH 1-2 PERSON ASSIST, GAIT SLOW AND UNSTEADY, PT DENIES DIZZINESS OR LIGHTHEADEDNESS BUT DOES C/O GENERALIZED BODY WEAKNESS. CALL LIGHT WITHIN REACH, FAMILY AT BEDSIDE.
[2019-01-22] MEDS: GABAPENTIN 300 MG CAPSULE PO SCH (08:45)
[2019-01-22] MEDS: LABETALOL HCL 200 MG TABLET PO SCH (08:45)
[2019-01-22 11:17] VITALS: BP 156/80
--- NOTE | 2019-01-22 11:46 | NUR ---
[facility] CONSULT PATIENT ASSESSED ORDERED: PATIENT PRESENTS WITH STAGE II PRESSURE ULCERS TO SACRUM AND RT BUTTOCK: [facility] RECOMMENDATIONS SUBMITTED. Addendum: 01/22/19 at 1148 by QUIQUE BOWMAN LVN LVN W Amended: Links added.
[2019-01-22] MEDS ORDERED: LEVO750T46 PO (12:23)
--- NOTE | 2019-01-22 13:00 | NUR ---
DISCHARGE INSTRUCTIONS GIVEN, PIV REMOVED AND INTACT, DISCHARGED HOME TO FAMILY VEHICLE VIA WHEELCHAIR.
--- NOTE | 2019-01-22 15:34 | NUR ---
DC PLAN SPOKE TO DR. AGEE AND TO NURSING STAFF. FINAL DISPO MELIZA DECIDED TO TAKE PATIENT HOME. PATIENT DISCHARGED HOME. Addendum: 01/22/19 at 1535 by KUMAR FREEDMAN RN CM Amended: Links added.
== END 2019-01-22 14:30 | disposition home or self-care (01) | DRG 177 ==
LOC: EDH 13:40 → EDHIP 15:41 → 2AH 17:30
PROVIDERS: ADMIT Internal Medicine; ATTEND Internal Medicine
PROC: 30233N1 Transfusion of Nonautologous Red Blood Cells into Peripheral Vein, Percutaneous Approach (ICD-10-PCS; principal; 2019-01-19)
DX: J15.6 Pneumonia due to other Gram-negative bacteria (principal); E43 Unspecified severe protein-calorie malnutrition; J96.01 Acute respiratory failure with hypoxia; I50.33 Acute on chronic diastolic (congestive) heart failure; J44.0 Chronic obstructive pulmonary disease with (acute) lower respiratory infection; E87.1 Hypo-osmolality and hyponatremia; J44.1 Chronic obstructive pulmonary disease with (acute) exacerbation; Z68.1 Body mass index [BMI] 19.9 or less, adult; E86.1 Hypovolemia; B96.1 Klebsiella pneumoniae [K. pneumoniae] as the cause of diseases classified elsewhere; I11.0 Hypertensive heart disease with heart failure; F32.9 Major depressive disorder, single episode, unspecified; D64.9 Anemia, unspecified; E11.51 Type 2 diabetes mellitus with diabetic peripheral angiopathy without gangrene; E87.5 Hyperkalemia; E78.5 Hyperlipidemia, unspecified; I25.10 Atherosclerotic heart disease of native coronary artery without angina pectoris; Z74.01 Bed confinement status; Z87.01 Personal history of pneumonia (recurrent); Z87.891 Personal history of nicotine dependence; Z95.5 Presence of coronary angioplasty implant and graft; Z99.81 Dependence on supplemental oxygen; Z82.3 Family history of stroke; Z82.49 Family history of ischemic heart disease and other diseases of the circulatory system
CPT/HCPCS: 36415; 36430; 71045; 71046; 71250; 80048; 80053; 80202; 81001; 82550; 82948; 83605; 83874; 83880; 84484; 85014; 85018; 85025; 85027; 85610; 85730; 86738; 86850; 86900; 86901; 86922; 87040; 87071; 87077; 87088; 87186; 87205; 87449; 87486; 87581; 87633; 87798; 93005; 94640; 94664; 94667; 94668; 99291; G0378; J1650; J1815; J1940; J1956; J2060; J2185; J2543; J3370; J3490; J7030; J7070; J7608; P9016

== ENCOUNTER 2019-02-01 17:04 | Inpatient (IN) | payer OTHER | END 2019-02-02 11:45 | disposition left against medical advice (07) | LOC: EDH 17:04 → EDHIP 18:50 → 3BH 21:26 ==

== ENCOUNTER 2019-02-16 11:52 | Inpatient (IN) | payer OTHER ==
[~2019-02-16] VITALS: Ht 180.3 cm; Wt 42.7 kg
[~2019-02-16 11:52] MED LIST changes: -INSU100V12 SQ; +LEVO750T46 PO
[2019-02-16] MEDS ORDERED: SODIUM CHLORIDE 0.9% 1000ML 1,000 ML IV ONE (12:02)
[2019-02-16] MEDS ORDERED: ONDANSETRON HCL 4 MG/2 ML VIAL ONE (12:02)
[2019-02-16 12:24] LABS: BASOPHILS % (AUTO) 1.7 % (0.0-5.0); EOSINOPHILS % (AUTO) 0.2 % (0.0-8.0); HEMATOCRIT 27.1 % (42-54); LYMPHOCYTES % (AUTO) 2.3 % (21.0-51.0); MEAN CORPUSCULAR HEMOGLOBIN 29.7 pg (27.0-33.0); MEAN CORPUSCULAR HGB CONC 33.1 g/dL (32.0-36.0); MEAN CORPUSCULAR VOLUME 89.7 fL (79-99); MONOCYTES % (AUTO) 1.9 % (3.0-13.0); NEUTROPHILS % (AUTO) 93.9 % (40.0-77.0); PLATELET COUNT (AUTO) 375 K/uL (130-400); RED BLOOD CELL COUNT(AUTO) 3.02 MIL/uL (4.50-6.20); RED CELL DISTRIBUTION WIDTH 16.5 % (11.0-15.5); WHITE BLOOD COUNT (AUTO) 10.8 K/uL (4.8-10.8)
[2019-02-16 12:36] LABS: INR 0.97 (0.85-1.15); PARTIAL THROMBOPLASTIN TIME 27.1 SEC (26.3-35.5); PROTHROMBIN TIME 10.2 SEC (9.6-11.6)
[2019-02-16 13:02] LABS: ALANINE AMINOTRANSFERASE 21 U/L (12-78); ALBUMIN 2.5 g/dL (3.5-5.0); ASPARTATE AMINOTRANSFERASE 14 U/L (10-37); BILIRUBIN,TOTAL 0.5 mg/dL (0.2-1.0); CARBON DIOXIDE 36 mmol/L (21-32); CHLORIDE 97 mmol/L (101-111); CREATINE KINASE, TOTAL 11 U/L (21-232); CREATININE 1.5 mg/dL (0.5-1.5); GLOMERULAR FILTR. RATE CALC 49 mL/min (>60); GLUCOSE,RANDOM 406 mg/dL (70-105); MYOGLOBIN 33 ng/mL (10-92); POTASSIUM 4.3 mmol/L (3.5-5.1); SODIUM SERUM 140 mmol/L (136-145); TOTAL PROTEIN, SERUM 7.5 g/dL (6.0-8.3); TROPONIN I < 0.04 ng/mL (0.00-0.06); UREA NITROGEN, BLOOD 28 mg/dL (7-18)
[2019-02-16 13:18] LABS: B-TYPE NATRIURETIC PEPTIDE 1060 pg/mL (0-100)
[2019-02-16 14:09] LABS: APPEARANCE,URINE Clear (CLEAR); BILIRUBIN,URINE Negative (NEGATIVE); COLOR,URINE Yellow (YELLOW); GLUCOSE, URINE (UA) >=1000 mg/dL (NEGATIVE); KETONES,URINE Negative (NEGATIVE); LEUKOCYTE ESTERASE ,URINE Negative (NEGATIVE); NITRATE,URINE Negative (NEGATIVE); OCCULT BLOOD,URINE Nonhemolyzed Trace (NEGATIVE); PH,URINE 6.5 (5.0-8.0); PROTEIN,URINE POS 2+ mg/dL (NEGATIVE); UROBILINOGEN,URINE 0.2 mg/dL (0.2-1.0)
[2019-02-16 14:45] LABS: BACTERIA,URINE Rare /HPF (None Seen); RBC,URINE 0-1 /HPF (0-1); SQUAMOUS EPITHELIAL CELL,UR None Seen /HPF (0-2); WBC,URINE 0-1 /HPF (0-1)
[2019-02-16] MEDS ORDERED: LEVOFLOXACIN 500 MG/D5W 100 ML 100 ML ONE (14:45)
[2019-02-16] MEDS ORDERED: INSULIN HUMULIN R 100 UNIT/ML 3ML ONE (14:46)
[2019-02-16] MEDS ORDERED: HYDRALAZINE HCL 20 MG/ML VIAL ONE (15:26)
[2019-02-16] MEDS ORDERED: IPRATROPIUM/ALBUTEROL SULFATE 3 ML SOLUTION IH ONE (15:32)
[2019-02-16] MEDS ORDERED: ONDANSETRON HCL 4 MG/2 ML VIAL IV PRN (16:45)
[2019-02-16] MEDS ORDERED: HYDRALAZINE HCL 20 MG/ML VIAL IV PRN (16:45)
[2019-02-16] MEDS ORDERED: ACETAMINOPHEN 325 MG TAB PO PRN (16:45)
[2019-02-16 18:10] LABS: CREATINE KINASE, TOTAL 12 U/L (21-232); MYOGLOBIN 50 ng/mL (10-92); TROPONIN I < 0.04 ng/mL (0.00-0.06)
[2019-02-16 18:28] VITALS: BP 151/67
[2019-02-16] MEDS: IPRATROPIUM/ALBUTEROL SULFATE 3 ML SOLUTION IH SCH (18:34)
[2019-02-16] MEDS: GLIPIZIDE 5 MG TABLET PO SCH (18:40)
[2019-02-16] MEDS: CLONIDINE HCL 0.1 MG TABLET PO SCH (18:42)
[2019-02-16] MEDS: BUDESONIDE 0.5 MG/2 ML INH IH SCH (19:07)
[2019-02-16 21:11] VITALS: BP 156/73
[2019-02-16] MEDS: METHYLPREDNISOLONE SOD SUCC 40MG/ML 1ML IVP SCH (22:16)
[2019-02-16] MEDS: FAMOTIDINE/PF 20 MG/2 ML VIAL IV SCH (22:16)
[2019-02-16] MEDS: LUBIPROSTONE 24 MCG CAP PO SCH (22:16)
[2019-02-16] MEDS: LABETALOL HCL 200 MG TABLET PO SCH (22:17)
[2019-02-16] MEDS: SIMVASTATIN 20 MG TABLET PO SCH (22:17)
[2019-02-16] MEDS: TRAZODONE HCL 100 MG TABLET PO SCH (22:17)
[2019-02-16] MEDS: INSULIN GLARGINE 100 UNITS/ML 10 ML VIAL SQ SCH (22:19)
[2019-02-16] MEDS: INSULIN HUMULIN R 100 UNIT/ML 3ML SQ SCH (22:20)
[2019-02-16] MEDS: MORPHINE SULFATE 2 MG/ML 1ML SYG IV PRN (22:40)
[2019-02-17 00:58] VITALS: BP 143/74
[2019-02-17 01:28] LABS: CREATINE KINASE, TOTAL 17 U/L (21-232); MYOGLOBIN 110 ng/mL (10-92); TROPONIN I < 0.04 ng/mL (0.00-0.06)
[2019-02-17] MEDS: MORPHINE SULFATE 2 MG/ML 1ML SYG IV PRN ×5 (04:00→21:20)
[2019-02-17] MEDS: CLONIDINE HCL 0.1 MG TABLET PO SCH ×3 (04:01→16:24)
[2019-02-17 04:41] VITALS: BP 146/63
[2019-02-17] MEDS: BUDESONIDE 0.5 MG/2 ML INH IH SCH (06:33)
[2019-02-17] MEDS: IPRATROPIUM/ALBUTEROL SULFATE 3 ML SOLUTION IH SCH ×3 (06:33→12:00)
[2019-02-17 07:09] LABS: HEMATOCRIT 24.2 % (42-54); MEAN CORPUSCULAR HEMOGLOBIN 30.3 pg (27.0-33.0); MEAN CORPUSCULAR HGB CONC 34.5 g/dL (32.0-36.0); PLATELET COUNT (AUTO) 301 K/uL (130-400); RED BLOOD CELL COUNT(AUTO) 2.75 MIL/uL (4.50-6.20); RED CELL DISTRIBUTION WIDTH 16.5 % (11.0-15.5); WHITE BLOOD COUNT (AUTO) 6.7 K/uL (4.8-10.8)
[2019-02-17 07:21] LABS: CREATININE 1.5 mg/dL (0.5-1.5); POTASSIUM 4.2 mmol/L (3.5-5.1)
[2019-02-17] MEDS: INSULIN HUMULIN R 100 UNIT/ML 3ML SQ SCH ×4 (07:30→21:23)
[2019-02-17 08:00] VITALS: BP 127/57
[2019-02-17] MEDS: GLIPIZIDE 5 MG TABLET PO SCH (08:44)
[2019-02-17] MEDS: COLLAGENASE APPL TP SCH (09:00)
[2019-02-17 09:27] LABS: CREATINE KINASE, TOTAL 22 U/L (21-232); MYOGLOBIN 122 ng/mL (10-92); TROPONIN I < 0.04 ng/mL (0.00-0.06)
[2019-02-17] MEDS: METHYLPREDNISOLONE SOD SUCC 40MG/ML 1ML IVP SCH ×2 (09:41→21:19)
[2019-02-17] MEDS: ENOXAPARIN SODIUM 30 MG/0.3 ML SQ SCH (09:42)
[2019-02-17] MEDS: LEVOFLOXACIN 500 MG/D5W 100 ML 100 ML IV SCH (09:42)
[2019-02-17] MEDS: FUROSEMIDE 40 MG TABLET PO SCH (09:43)
[2019-02-17] MEDS: FAMOTIDINE/PF 20 MG/2 ML VIAL IV SCH ×2 (09:43→21:19)
[2019-02-17] MEDS: AMLODIPINE BESYLATE 5 MG TAB PO SCH (09:43)
[2019-02-17] MEDS: CLOPIDOGREL BISULFATE 75 MG TAB PO SCH (09:43)
[2019-02-17] MEDS: LABETALOL HCL 200 MG TABLET PO SCH ×2 (09:43→21:19)
[2019-02-17] MEDS: LUBIPROSTONE 24 MCG CAP PO SCH ×2 (09:44→21:18)
[2019-02-17 11:56] VITALS: BP 130/56
--- NOTE | 2019-02-17 12:36 | NUR ---
Nutrition Intervention: Nutrition consult due to CHF. Pt. admitted with Dx of Gastroenteritis, Acute on chronic Renal Failure. Pt. on 75gm CCD diet with Ensure TID. Noted diet texture changed to Pureed for dinner. Per pt's friend, pt. with poor p.o. intake and stated pt. may benefit from snacks TID; tolerating Ensure supp. well. Pt's friend reports pt. with swallowing difficulties; requesting chopped or ground diet texture. Food preferences obtained from pt's friend. Labs reviewed(Alb 2.5, BUN 36). LBM: 02/16/19. SR-10, coccyx ulcer. BMI: 13.8, underweight-emaciated. Pt's friend educated on Low Sodium diet and provided with education material. Pt's friend verbalized understanding. Recommendations: 1) Rec. Snack TID. 2) Low Sodium diet education given to pt's friend. 3) Rec. Speech therapy consult due to pt. with swallowing difficulties. 4) Continue to monitor pt's nutritional status. 5) Consult RD as nutrition concerns arise. Addendum: 02/17/19 at [address] Amended: Links added.
[2019-02-17 16:00] VITALS: BP 137/57
[2019-02-17] MEDS ORDERED: EMPA25TA PO (16:31)
[2019-02-17 19:23] VITALS: BP 128/56
[2019-02-17] MEDS: SIMVASTATIN 20 MG TABLET PO SCH (21:18)
[2019-02-17] MEDS: TRAZODONE HCL 100 MG TABLET PO SCH (21:19)
[2019-02-17] MEDS: INSULIN GLARGINE 100 UNITS/ML 10 ML VIAL SQ SCH (21:24)
[2019-02-18 00:12] VITALS: BP 115/77
[2019-02-18] MEDS: CLONIDINE HCL 0.1 MG TABLET PO SCH ×3 (00:30→16:28)
[2019-02-18 04:20] VITALS: BP 133/59
[2019-02-18 05:55] LABS: HEMATOCRIT 23.4 % (42-54); MEAN CORPUSCULAR HEMOGLOBIN 29.8 pg (27.0-33.0); MEAN CORPUSCULAR VOLUME 87.6 fL (79-99); PLATELET COUNT (AUTO) 301 K/uL (130-400); RED BLOOD CELL COUNT(AUTO) 2.67 MIL/uL (4.50-6.20); WHITE BLOOD COUNT (AUTO) 6.8 K/uL (4.8-10.8)
[2019-02-18 06:00] LABS: CREATININE 1.5 mg/dL (0.5-1.5); POTASSIUM 4.5 mmol/L (3.5-5.1)
[2019-02-18] MEDS: IPRATROPIUM/ALBUTEROL SULFATE 3 ML SOLUTION IH SCH ×4 (06:00→18:00)
[2019-02-18 07:30] VITALS: BP 184/79
[2019-02-18] MEDS: INSULIN HUMULIN R 100 UNIT/ML 3ML SQ SCH ×4 (07:30→21:00)
--- NOTE | 2019-02-18 08:11 | NUR ---
PATIENT UPDATE Slept better last night. Medicated once for pain in the maria r lower extremities with morphine 2 mg given slow iv push which afforded relief. Refused for a bedbath stating thet he's going to be discharged to home today anyway. Pt also refused the duonebs treatments by the rt's.
[2019-02-18] MEDS: MORPHINE SULFATE 2 MG/ML 1ML SYG IV PRN ×4 (08:51→20:59)
[2019-02-18] MEDS: FUROSEMIDE 40 MG TABLET PO SCH (08:52)
[2019-02-18] MEDS: FAMOTIDINE/PF 20 MG/2 ML VIAL IV SCH ×2 (08:52→21:01)
[2019-02-18] MEDS: ENOXAPARIN SODIUM 30 MG/0.3 ML SQ SCH (08:53)
[2019-02-18] MEDS: LABETALOL HCL 200 MG TABLET PO SCH ×2 (08:54→21:01)
[2019-02-18] MEDS: CLOPIDOGREL BISULFATE 75 MG TAB PO SCH (08:54)
[2019-02-18] MEDS: AMLODIPINE BESYLATE 5 MG TAB PO SCH (08:54)
[2019-02-18] MEDS: Empagliflozin (Jardiance) 25 MG TAB PO SCH (08:55)
[2019-02-18] MEDS: COLLAGENASE APPL TP SCH (08:55)
[2019-02-18] MEDS: METHYLPREDNISOLONE SOD SUCC 40MG/ML 1ML IVP SCH ×2 (08:56→21:02)
[2019-02-18] MEDS: LUBIPROSTONE 24 MCG CAP PO SCH ×2 (08:56→21:01)
[2019-02-18] MEDS: BUDESONIDE 0.5 MG/2 ML INH IH SCH ×2 (09:00→21:00)
[2019-02-18] MEDS: LEVOFLOXACIN 500 MG/D5W 100 ML 100 ML IV SCH (10:44)
[2019-02-18 11:00] VITALS: BP 153/72
--- NOTE | 2019-02-18 13:00 | NUR ---
DRESSING CHANGED CHANGED DRESSING TO COCCYX, CLEANSED AREA WITH NS AND PAT DRIED. APPLIED SANTYL PER MD ORDERS AND COVERED WITH ALLEVYN FOAM. PATIENT TOLERATED PROCEDURE WELL.
--- NOTE | 2019-02-18 13:56 | NUR ---
SPOUSE WITH QUESTIONS AND COMPLAINTS; WHAT IS THE WEIGHT, CAN SHE GET APPETITE STIMULANT, WHAT IS STATUS OF WOUND, WHAT IS DC PLAN AND PT PLAN, WHAT IS RESULTS OF LABS AND CT SCAN. EXTENSIVE TIME SPENT WITH SPOUSE TO LISTEN TO HER CONCERNS. POC AND DC POTENTIAL DISCUSSED IN DEPTH WITH PATIENT AND SPOUSE. SPOUSE WANTS THERAPY TO WEIGHT PATIENT HOWEVER WHEN OFFERED HE REFUSED. HE REFUSED TO SIT EOB OR ATTEMPT TRANSFER WITH STAFF. PATIENT WAS SEEN FOR EVAL AND BED MOB AND DIAPER CHANGE. NURSE CAME IN TO CHANGE DRESSING. SPOUSE WANTS TO SEE CHARGE NURSE AND PANathanael SANTANA ENTERED ROOM WHEN THERAPIST LEFT. AT THIS TIME THERAPY RECOMMENDS SNF PLACEMENT, PSYCH CONSULT FOR POSSIBLE DEPRESSION, DIETARY AND WOUND CONSULTS. NOTABLETO LIFT PATIENT AT HOME HOWEVER HE HAS ELECTED TO DO HH PT AND NURSINGINTHE PAST. HOME IS EQUIPPED. MAY NEED HOSPTIAL BED. Addendum: 02/18/19 at 1400 by KARSON SALAZAR, PT PT Amended: Links added.
[2019-02-18] MEDS ORDERED: COMPOUND IV MISC 1 EACH IVSOLN MISC PRN (14:30)
[2019-02-18 16:00] VITALS: BP 157/65
[2019-02-18] MEDS ORDERED: SODIUM CHLORIDE 3% FOR INHALATION 4 ML/AMP VIAL.NEB IH ONE (17:54)
--- NOTE | 2019-02-18 18:33 | NUR ---
cm note lives with spouse, dependent for adls assistance, pt has a walker, rollator,w/c 02, nebulizer and a hospitalbed. pt states [facility] sends a nurse to 2 or 3X week to his home to assist. assist with adls. and transports as needed [place] [facility] pt states his will take him home as soon as d/c. states feels safe to return home has all he needs at home. and does not wish to go to any snf. Addendum: 02/18/19 at 1837 by DARREN LANDRUM CM Amended: Links added.
[2019-02-18] MEDS: SIMVASTATIN 20 MG TABLET PO SCH (21:01)
[2019-02-18] MEDS: TRAZODONE HCL 100 MG TABLET PO SCH (21:01)
[2019-02-18] MEDS: INSULIN GLARGINE 100 UNITS/ML 10 ML VIAL SQ SCH (21:09)
[2019-02-18 21:34] VITALS: BP 128/55
[2019-02-19 00:30] VITALS: BP 113/59
[2019-02-19] MEDS: CLONIDINE HCL 0.1 MG TABLET PO SCH ×4 (00:30→23:46)
[2019-02-19] MEDS: MORPHINE SULFATE 2 MG/ML 1ML SYG IV PRN ×5 (01:37→20:20)
--- NOTE | 2019-02-19 01:37 | NUR ---
PAIN Pt requests for Morphine Iv,states he has chronic pain to both feet.
[2019-02-19 04:00] VITALS: BP 152/62
[2019-02-19] MEDS: IPRATROPIUM/ALBUTEROL SULFATE 3 ML SOLUTION IH SCH ×4 (06:00→18:00)
[2019-02-19 06:30] LABS: LYMPHOCYTES % (AUTO) 6.1 % (21.0-51.0); MEAN CORPUSCULAR HEMOGLOBIN 30.1 pg (27.0-33.0); MEAN CORPUSCULAR HGB CONC 33.8 g/dL (32.0-36.0); MONOCYTES % (AUTO) 5.8 % (3.0-13.0); NEUTROPHILS % (AUTO) 88.1 % (40.0-77.0); NUCLEATED RED BLOOD CELLS 0.1 % (0.0-0.19); PLATELET COUNT (AUTO) 284 K/uL (130-400); RED BLOOD CELL COUNT(AUTO) 2.81 MIL/uL (4.50-6.20); WHITE BLOOD COUNT (AUTO) 6.2 K/uL (4.8-10.8)
[2019-02-19] MEDS: INSULIN HUMULIN R 100 UNIT/ML 3ML SQ SCH ×4 (06:34→20:34)
[2019-02-19 06:50] LABS: CREATININE 1.7 mg/dL (0.5-1.5); POTASSIUM 4.8 mmol/L (3.5-5.1)
[2019-02-19 08:00] VITALS: BP 134/59
[2019-02-19] MEDS: BUDESONIDE 0.5 MG/2 ML INH IH SCH ×2 (08:20→21:00)
[2019-02-19] MEDS ORDERED: IRON SUCROSE COMPLEX 100 MG in SODIUM CHLORIDE 0.9% 50 ML IV SCH (09:00)
[2019-02-19] MEDS: Empagliflozin (Jardiance) 25 MG TAB PO SCH (09:00)
[2019-02-19] MEDS: COLLAGENASE APPL TP SCH (09:00)
[2019-02-19] MEDS: LUBIPROSTONE 24 MCG CAP PO SCH ×2 (09:33→20:20)
[2019-02-19] MEDS: ENOXAPARIN SODIUM 30 MG/0.3 ML SQ SCH (09:33)
[2019-02-19] MEDS: CLOPIDOGREL BISULFATE 75 MG TAB PO SCH (09:33)
[2019-02-19] MEDS: FAMOTIDINE/PF 20 MG/2 ML VIAL IV SCH ×2 (09:33→20:21)
[2019-02-19] MEDS: AMLODIPINE BESYLATE 5 MG TAB PO SCH (09:33)
[2019-02-19] MEDS: FUROSEMIDE 40 MG TABLET PO SCH (09:34)
[2019-02-19] MEDS: METHYLPREDNISOLONE SOD SUCC 40MG/ML 1ML IVP SCH ×2 (09:34→20:21)
[2019-02-19] MEDS: LABETALOL HCL 200 MG TABLET PO SCH ×2 (09:34→20:21)
[2019-02-19] MEDS: LEVOFLOXACIN 500 MG/D5W 100 ML 100 ML IV SCH (10:00)
--- NOTE | 2019-02-19 12:00 | NUR ---
Nutrition Follow-up: Pt. on 75gm CCD [facility] Ground diet, snacks TID and Ensure supp. TID with meals. Pt. reports poor p.o.intake of meals but stated is tolerating snacks and Ensure supp. Labs reviewed(Alb 2.5, BUN 37, Creat 4.7, GFR 43, BG 318). LBM: 02/17/19. Pt. c/o constipation. SR-11, coccyx ulcer. Recommendations: 1) Continue current diet. 2) Rec. Glucerna supp. TID in place of Ensure supp. due to elevated BS levels. 3) Rec. stool softener to help alleviate lower GI distress. 4) Rec. 500mg Vit C BID and 220mg Zn sulfate QD to help promote wound healing. 5) Continue to monitor pt's nutritional status. 6) Consult RD as nutrition concerns arise. Addendum: 02/19/19 at 1213 by [address] Amended: Links added.
[2019-02-19 12:14] VITALS: BP 137/55
[2019-02-19 16:17] VITALS: BP 110/47
[2019-02-19 20:01] VITALS: BP 163/66
[2019-02-19] MEDS: SIMVASTATIN 20 MG TABLET PO SCH (20:20)
[2019-02-19] MEDS: TRAZODONE HCL 100 MG TABLET PO SCH (20:21)
[2019-02-19] MEDS: INSULIN GLARGINE 100 UNITS/ML 10 ML VIAL SQ SCH (20:33)
[2019-02-20] VITALS (7 sets, daily range): BP systolic 101–160; BP diastolic 49–70
[2019-02-20] MEDS: MORPHINE SULFATE 2 MG/ML 1ML SYG IV PRN ×5 (01:20→20:55)
[2019-02-20 04:49] LABS: HEMATOCRIT 24.9 % (42-54); LYMPHOCYTES % (AUTO) 6.4 % (21.0-51.0); MEAN CORPUSCULAR HEMOGLOBIN 29.3 pg (27.0-33.0); MEAN CORPUSCULAR HGB CONC 33.2 g/dL (32.0-36.0); MEAN CORPUSCULAR VOLUME 88.2 fL (79-99); MONOCYTES % (AUTO) 5.3 % (3.0-13.0); NEUTROPHILS % (AUTO) 88.3 % (40.0-77.0); PLATELET COUNT (AUTO) 287 K/uL (130-400); RED BLOOD CELL COUNT(AUTO) 2.82 MIL/uL (4.50-6.20); WHITE BLOOD COUNT (AUTO) 6.1 K/uL (4.8-10.8)
[2019-02-20 05:03] LABS: ALBUMIN 2.3 g/dL (3.5-5.0); BILIRUBIN,TOTAL 0.3 mg/dL (0.2-1.0); CREATININE 1.9 mg/dL (0.5-1.5); POTASSIUM 5.6 mmol/L (3.5-5.1); TOTAL PROTEIN, SERUM 6.2 g/dL (6.0-8.3)
[2019-02-20] MEDS: IPRATROPIUM/ALBUTEROL SULFATE 3 ML SOLUTION IH SCH ×2 (06:00→18:13)
[2019-02-20] MEDS: INSULIN HUMULIN R 100 UNIT/ML 3ML SQ SCH ×5 (06:12→20:55)
[2019-02-20] MEDS: BUDESONIDE 0.5 MG/2 ML INH IH SCH ×2 (07:05→19:05)
[2019-02-20] MEDS: LABETALOL HCL 200 MG TABLET PO SCH ×2 (08:36→19:52)
[2019-02-20] MEDS: AMLODIPINE BESYLATE 5 MG TAB PO SCH (08:36)
[2019-02-20] MEDS: CLOPIDOGREL BISULFATE 75 MG TAB PO SCH (08:37)
[2019-02-20] MEDS: LUBIPROSTONE 24 MCG CAP PO SCH ×2 (08:37→19:51)
[2019-02-20] MEDS: FAMOTIDINE/PF 20 MG/2 ML VIAL IV SCH ×2 (08:39→19:52)
[2019-02-20] MEDS: METHYLPREDNISOLONE SOD SUCC 40MG/ML 1ML IVP SCH ×2 (08:39→19:52)
[2019-02-20] MEDS: CLONIDINE HCL 0.1 MG TABLET PO SCH ×2 (08:39→16:28)
[2019-02-20] MEDS: FUROSEMIDE 40 MG TABLET PO SCH (08:40)
[2019-02-20] MEDS: Empagliflozin (Jardiance) 25 MG TAB PO SCH (08:41)
[2019-02-20] MEDS: ENOXAPARIN SODIUM 30 MG/0.3 ML SQ SCH (08:45)
[2019-02-20] MEDS: COLLAGENASE APPL TP SCH (08:55)
[2019-02-20] MEDS ORDERED: LACTULOSE 20 GM/30 ML UDCUP PO SCH ×2 (10:00→19:15)
--- NOTE | 2019-02-20 10:25 | NUR ---
PATIENT HAS REFUSED ORDERED LACTULOSE AND DR AGEE WAS MADE AWARE. HE CAME AND TALKED WITH THE PATIENT AND HE IS STILL REFUSING THE MEDS EXCEPT THE MORPHINE.
[2019-02-20] MEDS: LEVOFLOXACIN 500 MG/D5W 100 ML 100 ML IV SCH (10:26)
[2019-02-20] MEDS: SODIUM CHLORIDE 0.9% 1000ML 1,000 ML IV SCH (11:09)
--- NOTE | 2019-02-20 11:13 | NUR ---
PHYSICAL THERAPIST CAME TO WORK WITH THE PATIENT AND HE REFUSED THERAPY. WILL PROVIDE HIM WITH REFUSAL CONSENT TO TREATMENT FORM.
--- NOTE | 2019-02-20 12:40 | NUR ---
BLADDER SCAN WAS PERFORMED 94 ML RECORDED.
[2019-02-20] MEDS: MEGESTROL 400 MG/10 ML UDCUP PO SCH (12:59)
--- NOTE | 2019-02-20 16:30 | NUR ---
WOUND CARE NURSE CAME AND ASSESSED THE WOUND AND RECOMMENDED TO CONTINUE WITH THE HOME JAYSHREE.
--- NOTE | 2019-02-20 17:14 | NUR ---
[facility] consult Patient assessed as ordered. Patient has pressure ulcer to coccyx area. [facility] recommendations submitted. Addendum: 02/20/19 at 1716 by MIKEL FLORES RN/ Amended: Links added.
[2019-02-20] MEDS: TRAZODONE HCL 100 MG TABLET PO SCH (19:51)
[2019-02-20] MEDS: SIMVASTATIN 20 MG TABLET PO SCH (19:52)
--- NOTE | 2019-02-20 19:52 | NUR ---
LACTULOSE Pt states he has not had a bowel movement in 5 days,he tool LActulose this time.
[2019-02-20] MEDS: INSULIN GLARGINE 100 UNITS/ML 10 ML VIAL SQ SCH (20:54)
[2019-02-21] MEDS: IPRATROPIUM/ALBUTEROL SULFATE 3 ML SOLUTION IH SCH ×4 (00:10→19:25)
[2019-02-21] MEDS: CLONIDINE HCL 0.1 MG TABLET PO SCH ×3 (01:05→17:09)
[2019-02-21] MEDS: MORPHINE SULFATE 2 MG/ML 1ML SYG IV PRN ×5 (02:10→21:31)
[2019-02-21 03:56] VITALS: BP 151/58
[2019-02-21 04:35] LABS: BASOPHILS % (AUTO) 0.2 % (0.0-5.0); HEMATOCRIT 25.8 % (42-54); LYMPHOCYTES % (AUTO) 6.5 % (21.0-51.0); MEAN CORPUSCULAR HEMOGLOBIN 29.7 pg (27.0-33.0); MEAN CORPUSCULAR HGB CONC 33.7 g/dL (32.0-36.0); NEUTROPHILS % (AUTO) 88.3 % (40.0-77.0); PLATELET COUNT (AUTO) 264 K/uL (130-400); RED BLOOD CELL COUNT(AUTO) 2.93 MIL/uL (4.50-6.20); RED CELL DISTRIBUTION WIDTH 15.8 % (11.0-15.5); WHITE BLOOD COUNT (AUTO) 6.6 K/uL (4.8-10.8)
[2019-02-21 04:46] LABS: ALBUMIN 2.4 g/dL (3.5-5.0); BILIRUBIN,TOTAL 0.2 mg/dL (0.2-1.0); CREATININE 1.8 mg/dL (0.5-1.5); POTASSIUM 4.9 mmol/L (3.5-5.1); TOTAL PROTEIN, SERUM 6.2 g/dL (6.0-8.3)
[2019-02-21 04:52] LABS: B-TYPE NATRIURETIC PEPTIDE 313 pg/mL (0-100)
[2019-02-21] MEDS: INSULIN HUMULIN R 100 UNIT/ML 3ML SQ SCH ×4 (06:42→21:30)
[2019-02-21 07:30] VITALS: BP 152/68
[2019-02-21] MEDS: COLLAGENASE APPL TP SCH (09:00)
[2019-02-21] MEDS: Empagliflozin (Jardiance) 25 MG TAB PO SCH (09:00)
[2019-02-21] MEDS: BUDESONIDE 0.5 MG/2 ML INH IH SCH ×2 (09:00→19:25)
[2019-02-21] MEDS: METHYLPREDNISOLONE SOD SUCC 40MG/ML 1ML IVP SCH ×2 (09:50→21:26)
[2019-02-21] MEDS: FAMOTIDINE/PF 20 MG/2 ML VIAL IV SCH ×2 (09:50→21:26)
[2019-02-21] MEDS: LUBIPROSTONE 24 MCG CAP PO SCH ×2 (09:50→21:26)
[2019-02-21] MEDS: AMLODIPINE BESYLATE 5 MG TAB PO SCH (09:51)
[2019-02-21] MEDS: LABETALOL HCL 200 MG TABLET PO SCH ×2 (09:51→21:26)
[2019-02-21] MEDS: MEGESTROL 400 MG/10 ML UDCUP PO SCH ×2 (09:52→21:26)
[2019-02-21] MEDS: CLOPIDOGREL BISULFATE 75 MG TAB PO SCH (09:53)
[2019-02-21] MEDS: ENOXAPARIN SODIUM 30 MG/0.3 ML SQ SCH (09:56)
[2019-02-21] MEDS: SODIUM CHLORIDE 0.9% 1000ML 1,000 ML IV SCH (10:00)
[2019-02-21] MEDS: LEVOFLOXACIN 500 MG/D5W 100 ML 100 ML IV SCH (10:00)
[2019-02-21 11:00] VITALS: BP 129/56
--- NOTE | 2019-02-21 12:27 | NUR ---
DYSPHAGIA EVAL COMPLETED. -S/S OF ASPIRATION. RECOMMEND MECHANICAL SOFT/CHOPPED, THIN LIQUIDS; PILLS WHOLE WITH LIQUIDS. Addendum: 02/21/19 at 1228 by ELLI QUINN, [facility] ST Amended: Links added.
[2019-02-21] MEDS: LACTULOSE 20 GM/30 ML UDCUP PO SCH ×2 (15:22→22:15)
[2019-02-21 16:00] VITALS: BP 152/60
[2019-02-21 20:00] VITALS: BP 150/66
--- NOTE | 2019-02-21 21:13 | NUR ---
EVENING BLOOD SUGAR PATIENT'S FINGERSTICK BLOOD SUGAR THIS EVENING WAS 220
--- NOTE | 2019-02-21 21:20 | NUR ---
PATIENT REFUSED TO HAVE SCD'S APPLIED Addendum: 02/22/19 at 0148 by CAPRI DEJESUS RN RN Amended: Links added.
[2019-02-21] MEDS: TRAZODONE HCL 100 MG TABLET PO SCH (21:25)
[2019-02-21] MEDS: SIMVASTATIN 20 MG TABLET PO SCH (21:26)
[2019-02-21] MEDS: INSULIN GLARGINE 100 UNITS/ML 10 ML VIAL SQ SCH (21:29)
[2019-02-22] VITALS: BP 109/48
[2019-02-22] MEDS: CLONIDINE HCL 0.1 MG TABLET PO SCH ×3 (00:30→18:36)
[2019-02-22 04:00] VITALS: BP 136/67
[2019-02-22] MEDS: MORPHINE SULFATE 2 MG/ML 1ML SYG IV PRN ×4 (04:00→19:40)
[2019-02-22] MEDS: IPRATROPIUM/ALBUTEROL SULFATE 3 ML SOLUTION IH SCH ×4 (06:00→23:37)
[2019-02-22 06:22] LABS: BASOPHILS % (AUTO) 0.2 % (0.0-5.0); HEMATOCRIT 23.8 % (42-54); LYMPHOCYTES % (AUTO) 5.5 % (21.0-51.0); MEAN CORPUSCULAR HEMOGLOBIN 29.2 pg (27.0-33.0); MEAN CORPUSCULAR HGB CONC 33.5 g/dL (32.0-36.0); MEAN CORPUSCULAR VOLUME 87.3 fL (79-99); MONOCYTES % (AUTO) 3.9 % (3.0-13.0); NEUTROPHILS % (AUTO) 90.4 % (40.0-77.0); PLATELET COUNT (AUTO) 279 K/uL (130-400); RED BLOOD CELL COUNT(AUTO) 2.72 MIL/uL (4.50-6.20)
[2019-02-22 06:46] LABS: ALBUMIN 2.2 g/dL (3.5-5.0); BILIRUBIN,TOTAL 0.2 mg/dL (0.2-1.0); CREATININE 1.6 mg/dL (0.5-1.5); POTASSIUM 4.9 mmol/L (3.5-5.1); TOTAL PROTEIN, SERUM 5.7 g/dL (6.0-8.3)
[2019-02-22] MEDS: LACTULOSE 20 GM/30 ML UDCUP PO SCH ×4 (06:51→22:15)
[2019-02-22] MEDS: INSULIN HUMULIN R 100 UNIT/ML 3ML SQ SCH ×4 (06:55→22:12)
[2019-02-22] MEDS: BUDESONIDE 0.5 MG/2 ML INH IH SCH ×2 (07:00→18:26)
[2019-02-22] MEDS: Empagliflozin (Jardiance) 25 MG TAB PO SCH (09:00)
[2019-02-22] MEDS: COLLAGENASE APPL TP SCH (09:00)
[2019-02-22 09:03] VITALS: BP 154/59
[2019-02-22] MEDS: FAMOTIDINE/PF 20 MG/2 ML VIAL IV SCH ×2 (09:29→22:00)
[2019-02-22] MEDS: METHYLPREDNISOLONE SOD SUCC 40MG/ML 1ML IVP SCH ×2 (09:29→22:00)
[2019-02-22] MEDS: LABETALOL HCL 200 MG TABLET PO SCH ×2 (09:30→22:01)
[2019-02-22] MEDS: CLOPIDOGREL BISULFATE 75 MG TAB PO SCH (09:30)
[2019-02-22] MEDS: LUBIPROSTONE 24 MCG CAP PO SCH ×2 (09:31→22:00)
[2019-02-22] MEDS: MEGESTROL 400 MG/10 ML UDCUP PO SCH ×2 (09:31→18:45)
[2019-02-22] MEDS: AMLODIPINE BESYLATE 5 MG TAB PO SCH (09:31)
[2019-02-22] MEDS: ENOXAPARIN SODIUM 30 MG/0.3 ML SQ SCH (09:38)
[2019-02-22] MEDS: LEVOFLOXACIN 500 MG/D5W 100 ML 100 ML IV SCH (09:38)
[2019-02-22] MEDS: SODIUM CHLORIDE 0.9% 1000ML 1,000 ML IV SCH (09:45)
--- NOTE | 2019-02-22 10:00 | NUR ---
CM Note: pt declined placement, dcp to home. CM met with pt made aware MD has cleared for dc today, pt understood verbalized he is going home, he does not want to go anywhere, he wants to go home, declined placement. Primary nurse made aware. CM to cont to follow up.
[2019-02-22] MEDS ORDERED: MEGE400O4 PO (12:10)
--- NOTE | 2019-02-22 12:45 | NUR ---
Pt has discharge orders to go home. Pt's called very distraught that she is unable to care for pt at home; she is concerned that discharge is unsafe due to her inability to care for him, that she is elderly herself and she fears he will "just want to lie in bed and take morphine until he dies". She wants for him to go to a rehab facility. Notified EMILY Pablo and Physician'S Assistant Monica, as well as Med Surg Director Brent.
[2019-02-22 12:53] VITALS: BP 130/59
--- NOTE | 2019-02-22 13:00 | NUR ---
CM Note: EMS arranged and faxed for today, primary nurse to call [facility] once pt ready to DC. Primary nurse aware. CM to cont to follow up.
--- NOTE | 2019-02-22 14:00 | NUR ---
CM Note: [facility] pending ins auth and acceptance CM met with pt Nani [facility] on the phone would like to speak to pt. Pt spoke to COATER SLATE, agreeable for 2 weeks placement rehab, MARY signed for [facility]. Faxed order, clinicals, PT, and PASRR, confirmation received. Spoke to Britney will come eval pt. Stated pt has medicare ins will check benefits. Spoke to pt regarding using medicare, pt is agreeable for 2 weeks only. Britney made aware pt is OK to use medicare if needed. Pt pending ins auth and acceptance. Primary nurse aware. CM to cont to follow up.
--- NOTE | 2019-02-22 14:32 | NUR ---
DCP Sw contacted by kelechi Bustos nurse. refusing to machine operator hop picker pt. states pt needs placement, pt alert and oriented and refusing. Sw met with and informed of situation. Explained to pt that states that she can not care for him at home anymore and she want us to place pt, SNF. Pt stated "Hell no! I am going home". called on speaker and they argued. insisting that she can not care for him and that he needs to go to [facility] to get stronger. "the [place] will pay for it because he is 100% service connected". SW explained it was not about payment, it was that pt must be able to tolerate 3hrs of PT a day, and pt is not able to" "Well if he can't do that, he can't come home". stated she was calling [facility]. Pt said, "call the ambulance, I am going home". "Its my house not hers, I own it." I'll evict her if I have to". Zafar informed Juli Lowery and EMILY.
--- NOTE | 2019-02-22 15:43 | NUR ---
RD Follow Up Note Upon visit, Pt beginning to consume liquids from meal tray. Pt reports mashed potatoes and mechanical ground beef cause him to choke although Pt states tolerates soft fruits. Recommend Full Liquid diet at this time as well as RESEARCH PROFESSIONAL consult. Pt consumed half of Ensure at time of visit and desires coffee and tea. Recommend to add 60mL ProMod BID. Pt LBM 02/17/19. Pt monitored labs: Na 135, Cl 98, BUN 48, Cr 1.6, GFR 46, Glu 339, Alb 2.2, Hgb 8.0, Hct 23.8. RD to continue to monitor. Please notify RD as additional nutrition concerns arise. Thank you. RD Interventions: 1) Recommend RESEARCH PROFESSIONAL consult secondary to Pt states mashed potatoes causes choking 2) Full Liquid diet 3) 60mL ProMod BID Addendum: 02/22/19 at [address] RD Amended: Links added.
--- NOTE | 2019-02-22 15:52 | NUR ---
CM Note: [facility] pending approval Spoke to Allie arias/Malcolm, currently checking medicare benefits, pt pending approval. Instructed to call primary nurse Melissa ext#[phone] if approval received later. EMS arranged and faxed for today, primary nurse aware to call [facility] once pt ready to DC. Primary and charge nurse aware. CM to cont to follow up.
[2019-02-22 16:00] VITALS: BP 140/63
--- NOTE | 2019-02-22 17:14 | NUR ---
CM Note: Denied for [facility], pending [facility] ins auth for HNR CM spoke to Allie w/[facility], checked benefits for medicare no days available, per Allie called pt's spouse Santo made aware of denial, discussed pt will have outpocket fee $200/day if pt will go to [facility], as per spouse will not be able to pay the fee, made aware can request [facility] to approve for [facility]NR, as per Santo will speak to spouse first. CM met with pt discussed denial for [facility] using medicare as no days left unable to accept pt unless willing to pay $200 per day, pt state he will not be able to. Made aware [facility] is in network w[facility] and can try to ask for auth. Pt is agreeable for 2 weeks only rehab w/HNR, MARY signed. Made aware it might not be a semi-private room, but facility will try to accommodate pt request for private room. Pt is aware, agreeable to follow through with plans just for 2 weeks. CM spoke to Allie made aware pt is agreeable to try HNR, updated PASSR sent and received. Stated will forward clinicals to [facility] and will ask for auth from [facility] first thing tomorrow. EMS arranged and faxed for tomorrow. Primary nurse and Dr Moya made aware of poc. Pt pending [facility] ins auth for HNR. CM to cont to follow up.
[2019-02-22 20:00] VITALS: BP 150/62
--- NOTE | 2019-02-22 21:30 | NUR ---
FINGERSTICK BLOOD SUGAR FINGERSTICK BLOOD GLUCOSE WAS 374 THIS EVENING
[2019-02-22] MEDS: SIMVASTATIN 20 MG TABLET PO SCH (22:00)
[2019-02-22] MEDS: TRAZODONE HCL 100 MG TABLET PO SCH (22:00)
[2019-02-22] MEDS: INSULIN GLARGINE 100 UNITS/ML 10 ML VIAL SQ SCH (22:13)
[2019-02-23] VITALS: BP 149/58
[2019-02-23] MEDS: CLONIDINE HCL 0.1 MG TABLET PO SCH ×3 (01:12→16:20)
[2019-02-23] MEDS: MORPHINE SULFATE 2 MG/ML 1ML SYG IV PRN ×2 (01:13→09:42)
[2019-02-23] MEDS: SODIUM CHLORIDE 0.9% 1000ML 1,000 ML IV SCH (01:28)
[2019-02-23 04:00] VITALS: BP 164/61
[2019-02-23] MEDS: IPRATROPIUM/ALBUTEROL SULFATE 3 ML SOLUTION IH SCH ×2 (06:00→18:22)
[2019-02-23] MEDS: LACTULOSE 20 GM/30 ML UDCUP PO SCH ×2 (06:14→14:08)
[2019-02-23] MEDS: INSULIN HUMULIN R 100 UNIT/ML 3ML SQ SCH ×3 (06:42→16:30)
[2019-02-23] MEDS: MEGESTROL 400 MG/10 ML UDCUP PO SCH ×2 (06:42→18:33)
[2019-02-23 07:57] VITALS: BP 158/68
[2019-02-23] MEDS: Empagliflozin (Jardiance) 25 MG TAB PO SCH (09:00)
[2019-02-23] MEDS: COLLAGENASE APPL TP SCH (09:00)
[2019-02-23] MEDS: BUDESONIDE 0.5 MG/2 ML INH IH SCH ×2 (09:00→10:50)
[2019-02-23] MEDS: LUBIPROSTONE 24 MCG CAP PO SCH (09:21)
[2019-02-23] MEDS: FAMOTIDINE/PF 20 MG/2 ML VIAL IV SCH (09:21)
[2019-02-23] MEDS: AMLODIPINE BESYLATE 5 MG TAB PO SCH (09:21)
[2019-02-23] MEDS: CLOPIDOGREL BISULFATE 75 MG TAB PO SCH (09:22)
[2019-02-23] MEDS: LABETALOL HCL 200 MG TABLET PO SCH (09:23)
[2019-02-23] MEDS: ENOXAPARIN SODIUM 30 MG/0.3 ML SQ SCH (09:23)
[2019-02-23] MEDS: METHYLPREDNISOLONE SOD SUCC 40MG/ML 1ML IVP SCH (09:24)
[2019-02-23] MEDS: LEVOFLOXACIN 500 MG/D5W 100 ML 100 ML IV SCH (09:25)
[2019-02-23 12:00] VITALS: BP 139/52
[2019-02-23] MEDS ORDERED: MORPHINE SULFATE 2 MG/ML 1ML SYG IV PRN (12:15)
--- NOTE | 2019-02-23 14:51 | NUR ---
CM Note: [facility] pending ins auth Spoke to Andi arias/[facility] med director currently working on referral. pt pending ins auth at this time. Spoke to Nitza arias/LIN, made aware to call primary nurse Henri ext#[phone] if auth receive late today. EMS arranged and faxed for today, primary nurse to call [facility] once pt ready to DC. Primary nurse aware. CM to cont to follow up.
[2019-02-23] MEDS ORDERED: GABAPENTIN 300 MG CAPSULE PO SCH (15:45)
[2019-02-23 16:00] VITALS: BP 158/61
--- NOTE | 2019-02-23 16:16 | NUR ---
cm note spoke to Michelle brown at [facility], and states pt has been approved, and can call report, called jannette primary nurse, and updated pt accepted. and to call report to [facility]. and also call EMS for pickup. Jannette verbalizes understanding.
[2019-02-23 16:20] VITALS: BP 139/52
--- NOTE | 2019-02-23 18:00 | NUR ---
DISCHARGE INSTRUCTION GIVEN AND ALL QUESTIONS ANSWERED. REPORT GIVEN TO DARRELL ALVAREZ AT [facility]. IV DISCONTINUED WITH INNER CANNULA INTACT. AWAITING AMBULANCE TO TRANSFER [facility].
== END 2019-02-23 20:30 | DRG 177 ==
LOC: EDH 11:52 → OBSVTOIN 15:20 → EDHIP 15:20 → 3DH 16:19
PROVIDERS: ADMIT Hospitalist; ATTEND Hospitalist
DX: J69.0 Pneumonitis due to inhalation of food and vomit (principal); I50.33 Acute on chronic diastolic (congestive) heart failure; E43 Unspecified severe protein-calorie malnutrition; J44.1 Chronic obstructive pulmonary disease with (acute) exacerbation; J96.10 Chronic respiratory failure, unspecified whether with hypoxia or hypercapnia; J44.0 Chronic obstructive pulmonary disease with (acute) lower respiratory infection; Z68.1 Body mass index [BMI] 19.9 or less, adult; N18.3 Chronic kidney disease, stage 3 (moderate); E11.22 Type 2 diabetes mellitus with diabetic chronic kidney disease; K80.20 Calculus of gallbladder without cholecystitis without obstruction; J84.10 Pulmonary fibrosis, unspecified; D64.9 Anemia, unspecified; E11.21 Type 2 diabetes mellitus with diabetic nephropathy; E11.65 Type 2 diabetes mellitus with hyperglycemia; I25.10 Atherosclerotic heart disease of native coronary artery without angina pectoris; K59.00 Constipation, unspecified; R91.1 Solitary pulmonary nodule; E11.51 Type 2 diabetes mellitus with diabetic peripheral angiopathy without gangrene; Z99.81 Dependence on supplemental oxygen; Z82.3 Family history of stroke; Z82.49 Family history of ischemic heart disease and other diseases of the circulatory system; Z95.5 Presence of coronary angioplasty implant and graft
CPT/HCPCS: 36415; 71045; 71250; 74176; 76705; 80048; 80053; 81001; 82270; 82550; 82948; 83605; 83630; 83735; 83874; 83880; 84484; 85025; 85027; 85610; 85730; 87040; 87071; 87088; 87205; 87338; 92610; 93005; 94640; 94664; 97039; G0378; J0360; J1650; J1756; J1815; J1956; J2405; J2920; J3490; J7030

== ENCOUNTER 2019-03-06 18:26 | Emergency (ER) | payer OTHER ==
[~2019-03-06 18:26] MED LIST changes: +EMPA25TA PO; +MEGE400O4 PO; -SIMV40TA59 PO
[2019-03-06 19:10] LABS: BASOPHILS % (AUTO) 0.4 % (0.0-5.0); EOSINOPHILS % (AUTO) 0.6 % (0.0-8.0); LYMPHOCYTES % (AUTO) 7.7 % (21.0-51.0); MEAN CORPUSCULAR HEMOGLOBIN 29.7 pg (27.0-33.0); MEAN CORPUSCULAR HGB CONC 33.9 g/dL (32.0-36.0); MEAN CORPUSCULAR VOLUME 87.5 fL (79-99); MONOCYTES % (AUTO) 5.3 % (3.0-13.0); PLATELET COUNT (AUTO) 291 K/uL (130-400); RED BLOOD CELL COUNT(AUTO) 2.29 MIL/uL (4.50-6.20); RED CELL DISTRIBUTION WIDTH 15.9 % (11.0-15.5); WHITE BLOOD COUNT (AUTO) 6.5 K/uL (4.8-10.8)
[2019-03-06 19:27] LABS: CREATININE 1.6 mg/dL (0.5-1.5); POTASSIUM 4.5 mmol/L (3.5-5.1)
[2019-03-06 19:32] LABS: ALBUMIN 2.1 g/dL (3.5-5.0); BILIRUBIN,TOTAL 0.2 mg/dL (0.2-1.0); TOTAL PROTEIN, SERUM 5.8 g/dL (6.0-8.3)
[2019-03-06] MEDS ORDERED: ACETAMINOPHEN-CODEINE 300/30MG TAB ONE (19:46)
[2019-03-06] MEDS ORDERED: SODIUM CHLORIDE 0.9% 250 ML IV ONE (20:28)
== END 2019-03-07 01:10 | disposition home or self-care (01) ==
LOC: EDH 18:26
DX: D64.9 Anemia, unspecified (principal)
CPT/HCPCS: 36415; 36430; 80053; 85025; 86850; 86900; 86901; 86922; 99291; J7030; P9016

== ENCOUNTER 2019-03-18 17:25 | Observation (INO) | payer OTHER ==
[~2019-03-18] VITALS: Ht 175.3 cm; Wt 49.4 kg
[~2019-03-18 17:25] MED LIST changes: +AMIO200T44 PO; +APIX5TAB PO; +AZIT500T PO; -LEVO750T46 PO; -LIDOP TP; -SERT50TA12 PO; -TRAZ-187 PO
[2019-03-18] MEDS ORDERED: IPRATROPIUM/ALBUTEROL SULFATE 3 ML SOLUTION IH ONE (18:07)
[2019-03-18 18:33] LABS: APPEARANCE,URINE Clear (CLEAR); BILIRUBIN,URINE Negative (NEGATIVE); COLOR,URINE Yellow (YELLOW); GLUCOSE, URINE (UA) >=1000 mg/dL (NEGATIVE); KETONES,URINE Negative (NEGATIVE); LEUKOCYTE ESTERASE ,URINE Negative (NEGATIVE); NITRATE,URINE Negative (NEGATIVE); OCCULT BLOOD,URINE Nonhemolyzed Trace (NEGATIVE); PH,URINE 5.5 (5.0-8.0); PROTEIN,URINE POS 2+ mg/dL (NEGATIVE); UROBILINOGEN,URINE 0.2 mg/dL (0.2-1.0)
[2019-03-18] MEDS ORDERED: METHYLPREDNISOLONE SOD SUCC 125MG/2ML VIAL ONE (18:40)
[2019-03-18 18:41] LABS: BACTERIA,URINE Rare /HPF (None Seen); SQUAMOUS EPITHELIAL CELL,UR Rare /HPF (0-2); WBC,URINE 0-1 /HPF (0-1)
[2019-03-18] MEDS ORDERED: LEVOFLOXACIN 500 MG/D5W 100 ML 100 ML ONE (18:55)
[2019-03-18 19:09] LABS: BASOPHILS % (AUTO) 0.2 % (0.0-5.0); EOSINOPHILS % (AUTO) 0.4 % (0.0-8.0); LYMPHOCYTES % (AUTO) 5.7 % (21.0-51.0); MEAN CORPUSCULAR HEMOGLOBIN 29.8 pg (27.0-33.0); MEAN CORPUSCULAR HGB CONC 33.6 g/dL (32.0-36.0); MEAN CORPUSCULAR VOLUME 88.6 fL (79-99); MONOCYTES % (AUTO) 4.2 % (3.0-13.0); NEUTROPHILS % (AUTO) 89.5 % (40.0-77.0); PLATELET COUNT (AUTO) 374 K/uL (130-400); RED BLOOD CELL COUNT(AUTO) 2.16 MIL/uL (4.50-6.20); RED CELL DISTRIBUTION WIDTH 15.7 % (11.0-15.5); WHITE BLOOD COUNT (AUTO) 9.2 K/uL (4.8-10.8)
[2019-03-18 19:11] LABS: HEMATOCRIT 19.1 % (42-54)
[2019-03-18 19:31] LABS: INR 0.99 (0.85-1.15); PROTHROMBIN TIME 10.4 SEC (9.6-11.6)
[2019-03-18 19:34] LABS: ALANINE AMINOTRANSFERASE 33 U/L (12-78); ALBUMIN 1.9 g/dL (3.5-5.0); ASPARTATE AMINOTRANSFERASE 23 U/L (10-37); BILIRUBIN,TOTAL 0.2 mg/dL (0.2-1.0); CARBON DIOXIDE 28 mmol/L (21-32); CHLORIDE 98 mmol/L (101-111); CREATINE KINASE, TOTAL 24 U/L (21-232); CREATININE 1.6 mg/dL (0.5-1.5); GLOMERULAR FILTR. RATE CALC 46 mL/min (>60); MYOGLOBIN 65 ng/mL (10-92); POTASSIUM 3.7 mmol/L (3.5-5.1); SODIUM SERUM 134 mmol/L (136-145); TOTAL PROTEIN, SERUM 5.5 g/dL (6.0-8.3); TROPONIN I < 0.04 ng/mL (0.00-0.06); UREA NITROGEN, BLOOD 39 mg/dL (7-18)
[2019-03-18 19:42] LABS: GLUCOSE,RANDOM 444 mg/dL (70-105)
[2019-03-18] MEDS ORDERED: INSULIN HUMULIN R 100 UNIT/ML 3ML ONE (19:46)
[2019-03-18 19:47] LABS: B-TYPE NATRIURETIC PEPTIDE 1160 pg/mL (0-100)
[2019-03-18] MEDS ORDERED: SODIUM CHLORIDE 0.9% 100 ML IV ONE (19:47)
[2019-03-18] MEDS: METHYLPREDNISOLONE SOD SUCC 40MG/ML 1ML IVP SCH (20:00)
[2019-03-18] MEDS ORDERED: ONDANSETRON HCL 4 MG/2 ML VIAL IV PRN (20:00)
[2019-03-18] MEDS ORDERED: LACTULOSE 20 GM/30 ML UDCUP PO PRN (20:00)
[2019-03-18] MEDS: FUROSEMIDE 10 MG/ML 2ML VIAL IV SCH (20:00)
[2019-03-18] MEDS ORDERED: ACETAMINOPHEN 325 MG TAB PO PRN ×2 (20:00)
[2019-03-18] MEDS ORDERED: FAMOTIDINE/PF 20 MG/2 ML VIAL IV ONE (20:23)
[2019-03-18] MEDS ORDERED: FUROSEMIDE 10 MG/ML 2ML VIAL ONE (20:23)
[2019-03-18] MEDS: INSULIN HUMULIN R 100 UNIT/ML 3ML SQ SCH (21:00)
[2019-03-18] MEDS ORDERED: HYDRALAZINE HCL 20 MG/ML VIAL ONE (21:46)
[2019-03-18 22:34] VITALS: BP 144/52
[2019-03-18] MEDS ORDERED: SODIUM CHLORIDE 0.9% 250 ML IV ONE (23:06)
[2019-03-18] MEDS: SODIUM CHLORIDE 3% FOR INHALATION 4 ML/AMP VIAL.NEB IH ONE (23:25)
[2019-03-18 23:42] VITALS: BP 157/59
[2019-03-19] MEDS: CLONIDINE HCL 0.1 MG TABLET PO SCH ×2 (00:30→10:09)
[2019-03-19] MEDS: IPRATROPIUM/ALBUTEROL SULFATE 3 ML SOLUTION IH SCH ×2 (00:48→06:00)
[2019-03-19] MEDS: SODIUM CHLORIDE 3% FOR INHALATION 4 ML/AMP VIAL.NEB IH ONE (00:48)
[2019-03-19 01:35] VITALS: BP 170/79
--- NOTE | 2019-03-19 01:40 | NUR ---
BLOOD PRESSURE ELEVATED, HOSPITALIST PAGED. NURSE PRACTITIONER RETURNED CALL, APPRAISED OF BLOOD PRESSURE, ORDER RECEIVED AND PLACED IN COMPUTER. PATIENT MEDICATED FOR ELEVATED BLOOD PRESSURE PER ORDER.
[2019-03-19] MEDS ORDERED: HYDRALAZINE HCL 20 MG/ML VIAL IV PRN (01:45)
[2019-03-19] MEDS ORDERED: HYDRALAZINE HCL 20 MG/ML VIAL ONE (01:46)
[2019-03-19 03:02] VITALS: BP 149/57
[2019-03-19] MEDS ORDERED: SODIUM CHLORIDE 0.9% 10 ML VIAL ONE (03:57)
[2019-03-19] MEDS: METHYLPREDNISOLONE SOD SUCC 40MG/ML 1ML IVP SCH ×2 (04:13→11:45)
[2019-03-19 04:24] LABS: BASOPHILS % (AUTO) 0.1 % (0.0-5.0); HEMATOCRIT 25.6 % (42-54); MEAN CORPUSCULAR HEMOGLOBIN 29.7 pg (27.0-33.0); MEAN CORPUSCULAR HGB CONC 33.5 g/dL (32.0-36.0); MEAN CORPUSCULAR VOLUME 88.7 fL (79-99); MONOCYTES % (AUTO) 0.5 % (3.0-13.0); NEUTROPHILS % (AUTO) 97.4 % (40.0-77.0); PLATELET COUNT (AUTO) 415 K/uL (130-400); RED BLOOD CELL COUNT(AUTO) 2.89 MIL/uL (4.50-6.20); RED CELL DISTRIBUTION WIDTH 15.5 % (11.0-15.5); WHITE BLOOD COUNT (AUTO) 6.4 K/uL (4.8-10.8)
[2019-03-19 04:43] LABS: CREATININE 1.5 mg/dL (0.5-1.5); POTASSIUM 4.3 mmol/L (3.5-5.1)
[2019-03-19 04:48] VITALS: BP 159/75
[2019-03-19 05:25] LABS: HEMATOCRIT 25.7 % (42-54)
[2019-03-19] MEDS ORDERED: SODIUM CHLORIDE 3% FOR INHALATION 4 ML/AMP VIAL.NEB IH ONE (06:14)
[2019-03-19] MEDS: INSULIN HUMULIN R 100 UNIT/ML 3ML SQ SCH (06:30)
[2019-03-19 07:52] VITALS: BP 147/68
--- NOTE | 2019-03-19 08:12 | NUR ---
DR. Avis ARELLANO IN ROOM SPEAKING WITH PT. RE:PLAN OF CARE; QUESTIONS ANSWERED BY .
[2019-03-19] MEDS ORDERED: LUBIPROSTONE 24 MCG CAP PO SCH (09:00)
[2019-03-19] MEDS ORDERED: MULTIVITAMIN WITH MINERALS TABLET PO SCH (09:00)
[2019-03-19] MEDS ORDERED: HONEY 1 APPL/ML TUBE TP SCH (09:00)
[2019-03-19] MEDS ORDERED: ***HM***Cholecalciferol (Vitamin D3) 400 UNIT PO SCH (09:00)
[2019-03-19] MEDS ORDERED: EMPAGLIFLOZIN 12.5 MG PO SCH (09:00)
[2019-03-19] MEDS ORDERED: FAMOTIDINE 20MG TAB 20 MG TAB PO SCH (09:00)
[2019-03-19] MEDS ORDERED: FOLIC ACID 1 MG TABLET PO SCH (09:00)
[2019-03-19] MEDS ORDERED: AMLODIPINE BESYLATE 5 MG TAB PO SCH (09:00)
[2019-03-19] MEDS ORDERED: MEGESTROL 400 MG/10 ML UDCUP PO SCH (09:00)
[2019-03-19] MEDS ORDERED: GABAPENTIN 300 MG CAPSULE PO SCH (09:00)
[2019-03-19] MEDS ORDERED: ZINC 50 MG PO SCH (09:00)
[2019-03-19] MEDS ORDERED: AMIODARONE HCL 200 MG TABLET PO SCH (09:00)
[2019-03-19] MEDS ORDERED: LABETALOL HCL 200 MG TABLET PO SCH (09:00)
[2019-03-19] MEDS: FUROSEMIDE 10 MG/ML 2ML VIAL IV SCH (10:25)
--- NOTE | 2019-03-19 11:03 | NUR ---
DR. Avis ARELLANO RETURNED TO SPEAK WITH PT. DUE TO PT. REQUESTING TO BE DISCHARGE HOME.
[2019-03-19] MEDS ORDERED: METR-172 PO (11:23)
[2019-03-19] MEDS ORDERED: INSULIN HUMULIN R 100 UNIT/ML 3ML SQ SCH (11:30)
[2019-03-19 12:17] VITALS: BP 154/65
--- NOTE | 2019-03-19 13:50 | NUR ---
DC PLAN PATIENT WANTS TO GO HOME. GAVE ORDER. NEED EMS PATIENT BEDRIDDEN ON . SENT TO [facility] BESSIE NURSE KNOW. Addendum: 03/19/19 at 1351 by KUMAR FREEDMAN RN CM Amended: Links added.
[2019-03-19] MEDS ORDERED: METRONIDAZOLE 500MG/100ML BAG 100 ML IV SCH (14:00)
--- NOTE | 2019-03-19 14:35 | NUR ---
HL REMOVED, CATHETER INTACT. DISCHARGE INSTRUCTIONS GIVEN, PT. VERBALIZED UNDERSTANDING.
--- NOTE | 2019-03-19 14:56 | NUR ---
RD NOTIFICATION Pt admitted for Acute Respiratory Distress, Anemia. Pt with Hx Heart failure, Adv. COPD, Hyperglycemia, HTN. Pt tolerating 75gm CCD, modified to Finely chopped. Luis A added secondary to coccyx wound. 30mL ProMod added secondary to severe pro-geovany malnutrition. Recommend to add Vitamin C and ZnSO4 for wound healing support. Pt LBM 9.27.19. Pt monitored labs: Hgb 8.7, Hct 25.7, Na 134, Cl 98, BUN 45, GFR 49, Glu 351, Alb 1.9. Noted, possible discharge as per RN. RD to continue to monitor. Please notify as additional nutrition concerns arise. Thank you. Addendum: 03/19/19 at [address] RD Amended: Links added.
--- NOTE | 2019-03-19 16:00 | NUR ---
DISCHARGED HOME VIA EMS WITH BELONGINGS.
[2019-03-19] MEDS ORDERED: LEVOFLOXACIN 250 MG/D5W 50ML 50 ML IV SCH (17:00)
== END 2019-03-19 16:05 | disposition home or self-care (01) ==
LOC: EDH 17:25 → EDHIP 19:49 → 2DH 22:39
PROVIDERS: ADMIT Internal Medicine; ATTEND Internal Medicine
DX: J96.20 Acute and chronic respiratory failure, unspecified whether with hypoxia or hypercapnia (principal); J44.1 Chronic obstructive pulmonary disease with (acute) exacerbation; I50.32 Chronic diastolic (congestive) heart failure; J90 Pleural effusion, not elsewhere classified; I13.0 Hypertensive heart and chronic kidney disease with heart failure and stage 1 through stage 4 chronic kidney disease, or unspecified chronic kidney disease; E11.22 Type 2 diabetes mellitus with diabetic chronic kidney disease; N18.3 Chronic kidney disease, stage 3 (moderate); E78.5 Hyperlipidemia, unspecified; R64 Cachexia; E11.65 Type 2 diabetes mellitus with hyperglycemia; I45.81 Long QT syndrome; E43 Unspecified severe protein-calorie malnutrition; D63.8 Anemia in other chronic diseases classified elsewhere; Z87.891 Personal history of nicotine dependence; Z99.81 Dependence on supplemental oxygen; Z95.5 Presence of coronary angioplasty implant and graft; Z79.51 Long term (current) use of inhaled steroids; Z79.4 Long term (current) use of insulin; Z79.899 Other long term (current) drug therapy
CPT/HCPCS: 36415 ×2; 36430; 71045; 80048; 80053; 81001; 82550; 82947; 82948 ×2; 83605; 83874; 83880; 84145; 84484; 85014; 85018; 85025 ×2; 85610; 85730; 86850; 86900; 86901; 86922 ×2; 87040 ×2; 87088; 93005; 94640 ×3; 94664; 96361 ×2; 96372; 96374; 96375; 96376; 99284; A6213; G0378 ×19; J0360 ×2; J1815 ×3; J1940 ×2; J1956; J2920 ×2; J2930; J3490; J7030; P9016

== ENCOUNTER 2019-03-22 18:25 | Inpatient (IN) | payer OTHER ==
[~2019-03-22] VITALS: Ht 177.8 cm; Wt 45.9 kg
[~2019-03-22 18:25] MED LIST changes: -ACET-2900 PO; +ACET-3194 PO; -APIX5TAB PO; -CLOP75TA14 PO; +METR-172 PO
[2019-03-22 19:40] LABS: BASOPHILS % (AUTO) 0.2 % (0.0-5.0); LYMPHOCYTES % (AUTO) 4.5 % (21.0-51.0); MEAN CORPUSCULAR HEMOGLOBIN 30.3 pg (27.0-33.0); MEAN CORPUSCULAR HGB CONC 33.5 g/dL (32.0-36.0); MEAN CORPUSCULAR VOLUME 90.3 fL (79-99); MONOCYTES % (AUTO) 3.5 % (3.0-13.0); NEUTROPHILS % (AUTO) 91.8 % (40.0-77.0); PLATELET COUNT (AUTO) 278 K/uL (130-400); RED BLOOD CELL COUNT(AUTO) 2.02 MIL/uL (4.50-6.20); WHITE BLOOD COUNT (AUTO) 10.7 K/uL (4.8-10.8)
[2019-03-22 19:51] LABS: HEMATOCRIT 18.3 % (42-54)
[2019-03-22 19:56] LABS: INR 1.13 (0.85-1.15); PARTIAL THROMBOPLASTIN TIME 32.1 SEC (26.3-35.5); PROTHROMBIN TIME 11.8 SEC (9.6-11.6)
[2019-03-22 20:02] LABS: ALBUMIN 1.6 g/dL (3.5-5.0); BILIRUBIN,TOTAL 0.4 mg/dL (0.2-1.0); CREATININE 1.8 mg/dL (0.5-1.5); POTASSIUM 3.5 mmol/L (3.5-5.1); TOTAL PROTEIN, SERUM 4.8 g/dL (6.0-8.3)
[2019-03-22] MEDS: SODIUM CHLORIDE 0.9% 1000ML 1,000 ML IV SCH (22:11)
[2019-03-22] MEDS ORDERED: ONDANSETRON HCL 4 MG/2 ML VIAL IV PRN (22:15)
[2019-03-22] MEDS ORDERED: ACETAMINOPHEN 325 MG TAB PO PRN ×2 (22:15)
[2019-03-22] MEDS ORDERED: INSULIN HUMULIN R 100 UNIT/ML 3ML ONE (23:04)
[2019-03-22 23:15] LABS: % IRON SATURATION 10.1 % (30-44)
[2019-03-22] MEDS ORDERED: SODIUM CHLORIDE 0.9% 500ML 500 ML IV ONE (23:30)
[2019-03-23 00:30] VITALS: BP 103/76
[2019-03-23 04:00] VITALS: BP 99/58
[2019-03-23 04:53] LABS: BASOPHILS % (AUTO) 0.5 % (0.0-5.0); EOSINOPHILS % (AUTO) 0.4 % (0.0-8.0); HEMATOCRIT 21.3 % (42-54); LYMPHOCYTES % (AUTO) 4.8 % (21.0-51.0); MEAN CORPUSCULAR HEMOGLOBIN 30.9 pg (27.0-33.0); MEAN CORPUSCULAR HGB CONC 34.6 g/dL (32.0-36.0); MEAN CORPUSCULAR VOLUME 89.3 fL (79-99); NEUTROPHILS % (AUTO) 90.3 % (40.0-77.0); PLATELET COUNT (AUTO) 303 K/uL (130-400); RED BLOOD CELL COUNT(AUTO) 2.38 MIL/uL (4.50-6.20); RED CELL DISTRIBUTION WIDTH 15.5 % (11.0-15.5); WHITE BLOOD COUNT (AUTO) 10.4 K/uL (4.8-10.8)
[2019-03-23 05:23] LABS: ALBUMIN 1.6 g/dL (3.5-5.0); BILIRUBIN,TOTAL 0.5 mg/dL (0.2-1.0); CREATININE 1.7 mg/dL (0.5-1.5); POTASSIUM 3.3 mmol/L (3.5-5.1); TOTAL PROTEIN, SERUM 4.9 g/dL (6.0-8.3)
[2019-03-23] MEDS ORDERED: DEXTROSE 50%-WATER 50 ML DISP.SYRIN IV ONE (06:11)
[2019-03-23] MEDS: INSULIN HUMULIN R 100 UNIT/ML 3ML SQ SCH ×4 (06:23→21:48)
[2019-03-23 07:00] VITALS: BP 100/52
--- NOTE | 2019-03-23 11:00 | NUR ---
CM NOTES WELL KNOWN TO THIS CM FROM PREVIOUS VISIT SPOKE TO AMY, WHO STATES SHE WILL PROVIDE TRANSPORT ON DISCHARGE AND BRING O2 TANK. PT NEEDS HELP W AMBER, HAS A KENNEDY, JAGDEEP, W/C, 02 FROM [facility], AND PROVIDER SERVICES. AMY STATES HER NEEDS TO SEE DR. WEBB ON THIS ADMISSION R/T HIS KIDNEY FUNCTION. WILL ADVISE PRIMARY RN Addendum: 03/23/19 at 1956 by BHARATH LOO RN CM Amended: Links added.
[2019-03-23 12:00] VITALS: BP 148/61
[2019-03-23] MEDS ORDERED: LIDO15CR11 TP (12:10)
--- NOTE | 2019-03-23 13:43 | NUR ---
RD NOTIFICATION DX: ACUTE EXACERBATION OF MARKED ANEMIA, COPD. HX: CHRONIC ANEMIA, DM, CKDIII, CAD, COPD. BMI IS 14.5; CLASSIFIED UNDERWEIGHT. DIET: RENAL NON-DIALYSIS. LBM: 03/21. PO INTAKE 50% AND HAS GOOD APPETITE PER PT. PT ATE EGGS AND MUFFIN THIS MORNING. PT DRINKS ENSURE/ GLUCERNA AT HOME AND LIKES THEM. HE WILL ONLY DRINK THEM COLD PER PT. NO NAUSEA, VOMITING OR DIARRHEA. NO DIFFICULTY CHEWING OR SWALLOWING WITH MEALS/ DRINK. THERE IS PHYSICAL EVIDENCE OF SEVERE MUSCLE AND FAT LOSS NOTED. RD RECOMMENDS TO CONTINUE CURRENT DIET OFFER GLUCERNA (CHILLED) AT ALL MEALS RD WILL CONTINUE TO MONITOR AND FOLLOW UP NEEDED. THANK YOU Addendum: 03/23/19 at [address] Amended: Links added.
[2019-03-23] MEDS: SODIUM CHLORIDE 0.9% 1000ML 1,000 ML IV SCH (14:34)
[2019-03-23] MEDS ORDERED: LIDOCAINE HCL 5% OINT 36GM TUBE TP PRN (15:30)
[2019-03-23] MEDS: MEGESTROL 400 MG/10 ML UDCUP PO SCH (15:30)
[2019-03-23] MEDS ORDERED: EPOETIN ALFA 10,000 UNIT/ML VIAL SQ SCH (15:45)
[2019-03-23 16:00] VITALS: BP 159/74
[2019-03-23] MEDS ORDERED: COMPOUND IV MISC 1 EACH IVSOLN MISC PRN (16:15)
[2019-03-23] MEDS: CLONIDINE HCL 0.1 MG TABLET PO SCH ×2 (16:15→23:30)
[2019-03-23] MEDS: IRON SUCROSE COMPLEX 100 MG in SODIUM CHLORIDE 0.9% 50 ML IV SCH (16:41)
[2019-03-23] MEDS: AZITHROMYCIN 250 MG TABLET PO SCH (18:33)
[2019-03-23 19:25] VITALS: BP 177/74
[2019-03-23] MEDS: BUDESONIDE 0.5 MG/2 ML INH IH SCH (19:46)
[2019-03-23] MEDS: LUBIPROSTONE 24 MCG CAP PO SCH (21:53)
[2019-03-23] MEDS: METRONIDAZOLE 500 MG TABLET PO SCH (21:53)
[2019-03-23] MEDS: MULTIVITAMIN TABLET PO SCH (21:53)
[2019-03-23] MEDS: AMIODARONE HCL 200 MG TABLET PO SCH (21:54)
[2019-03-23] MEDS: GABAPENTIN 300 MG CAPSULE PO SCH (21:54)
[2019-03-23] MEDS: LABETALOL HCL 200 MG TABLET PO SCH (21:55)
[2019-03-24] VITALS (7 sets, daily range): BP systolic 114–174; BP diastolic 46–65
[2019-03-24] MEDS: MEGESTROL 400 MG/10 ML UDCUP PO SCH ×3 (02:49→16:55)
[2019-03-24 04:18] LABS: HEMATOCRIT 21.7 % (42-54); MEAN CORPUSCULAR HEMOGLOBIN 30.6 pg (27.0-33.0); MEAN CORPUSCULAR HGB CONC 34.3 g/dL (32.0-36.0); MEAN CORPUSCULAR VOLUME 89.3 fL (79-99); PLATELET COUNT (AUTO) 280 K/uL (130-400); RED BLOOD CELL COUNT(AUTO) 2.43 MIL/uL (4.50-6.20); RED CELL DISTRIBUTION WIDTH 15.7 % (11.0-15.5); WHITE BLOOD COUNT (AUTO) 11.2 K/uL (4.8-10.8)
[2019-03-24] MEDS ORDERED: GUAIFENESIN-DM 200/20 MG 10 ML ONE (04:28)
[2019-03-24] MEDS ORDERED: GUAIFENESIN-DM 200/20 MG 10 ML PO PRN (04:30)
[2019-03-24 04:38] LABS: CREATININE 1.6 mg/dL (0.5-1.5); POTASSIUM 3.6 mmol/L (3.5-5.1)
[2019-03-24] MEDS: BUDESONIDE 0.5 MG/2 ML INH IH SCH ×2 (05:09→18:19)
[2019-03-24] MEDS: INSULIN HUMULIN R 100 UNIT/ML 3ML SQ SCH ×4 (06:52→22:29)
[2019-03-24] MEDS: **HM**Empagliflozin (Jardiance) 12.5 MG PO SCH (08:52)
[2019-03-24] MEDS: CHOLECALCIFEROL 400 UNIT PO SCH (08:52)
[2019-03-24] MEDS: ZINC 50 MG PO SCH (08:52)
[2019-03-24] MEDS: COLLAGENASE TP SCH (08:53)
[2019-03-24] MEDS ORDERED: FUROSEMIDE 10 MG/ML 2ML VIAL IV SCH (09:00)
[2019-03-24] MEDS: IPRATROPIUM/ALBUTEROL SULFATE 3 ML SOLUTION IH SCH (09:21)
[2019-03-24] MEDS: IPRATROPIUM 0.5 MG/2.5 ML INH IH SCH ×4 (09:23→21:11)
[2019-03-24] MEDS: METHYLPREDNISOLONE SOD SUCC 125MG/2ML VIAL IVP SCH (09:40)
[2019-03-24] MEDS: IRON SUCROSE COMPLEX 100 MG in SODIUM CHLORIDE 0.9% 50 ML IV SCH (09:40)
[2019-03-24] MEDS: LUBIPROSTONE 24 MCG CAP PO SCH ×2 (09:41→22:32)
[2019-03-24] MEDS: GABAPENTIN 300 MG CAPSULE PO SCH ×2 (09:41→22:31)
[2019-03-24] MEDS: CLONIDINE HCL 0.1 MG TABLET PO SCH ×3 (09:42→23:30)
[2019-03-24] MEDS: AMIODARONE HCL 200 MG TABLET PO SCH ×2 (09:42→22:31)
[2019-03-24] MEDS: PANTOPRAZOLE SODIUM 40 MG TABLET.DR PO SCH (09:43)
[2019-03-24] MEDS: FOLIC ACID 1 MG TABLET PO SCH (09:43)
[2019-03-24] MEDS: METRONIDAZOLE 500 MG TABLET PO SCH ×3 (09:43→22:37)
[2019-03-24] MEDS: FUROSEMIDE 40 MG TABLET PO SCH (09:43)
[2019-03-24] MEDS: LABETALOL HCL 200 MG TABLET PO SCH ×2 (09:43→22:33)
[2019-03-24] MEDS: AMLODIPINE BESYLATE 5 MG TAB PO SCH (09:43)
[2019-03-24] MEDS: AZITHROMYCIN 250 MG TABLET PO SCH (15:35)
--- NOTE | 2019-03-24 15:55 | NUR ---
URINALYSIS Sample collected and sent as ordered by Dr. Messer.
--- NOTE | 2019-03-24 15:56 | NUR ---
BEHAVIORAL Received patient in AM in no distress. His visited in AM, she was updated on patient's condition, then se left. As the day progressed, patient has been continually calling nursing staff to ask the same two questions: what am I doing here? When am I going to go home? called patient and nurse spoke to her as well. states she has noticed that patient sometimes does this type of repetitive questioning. States she is reluctant to take him home due to current health condition. is concerned about patient's appetite. However, patient refuses to take his megace for appetite increase, stating he does not need it. But he refuses to eat. He had 0% intake for breakfast and less than 25% for lunch. Also, he has been alternating between a sheet, and a blanket to cover his body; asking to have one removed, then to place the other to cover his body; then turns around and asks to remove the blanket, place the sheet. Paged Dr. Hays to inform him. No answer. Called Lupe Ji, Nurse Practitioner; obtained order for psychiatric consult. Dr. Garcia here and informed of consult.
[2019-03-24 16:02] LABS: APPEARANCE,URINE Clear (CLEAR); BILIRUBIN,URINE Negative (NEGATIVE); COLOR,URINE Yellow (YELLOW); GLUCOSE, URINE (UA) >=1000 mg/dL (NEGATIVE); KETONES,URINE Negative (NEGATIVE); LEUKOCYTE ESTERASE ,URINE Negative (NEGATIVE); NITRATE,URINE Negative (NEGATIVE); OCCULT BLOOD,URINE Small (NEGATIVE); PROTEIN,URINE 300 mg/dL (NEGATIVE); UROBILINOGEN,URINE 0.2 mg/dL (0.2-1.0)
[2019-03-24] MEDS ORDERED: RISPERIDONE 1 MG TABLET PO STA (16:19)
[2019-03-24 16:21] LABS: BACTERIA,URINE Few /HPF (None Seen); MUCUS,URINE Few LPF (None Seen)
[2019-03-24] MEDS: DULOXETINE HCL 30 MG CAP PO SCH ×2 (16:56→22:32)
--- NOTE | 2019-03-24 17:07 | NUR ---
PSYCHIATRIC MEDICATIONS Administered risperdal 2mg PO and cymbalt a30mg as ordered. Cymbalta was the medication prescribed for pain by Dr. Garcia.
[2019-03-24] MEDS ORDERED: INSULIN GLARGINE 100 UNITS/ML 10 ML VIAL SQ ONE (22:30)
[2019-03-24] MEDS: RISPERIDONE 1 MG TABLET PO SCH (22:32)
[2019-03-24] MEDS: MULTIVITAMIN TABLET PO SCH (22:32)
[2019-03-24] MEDS: HONEY 1 APPL/ML TUBE TP SCH (22:38)
[2019-03-25] MEDS: IPRATROPIUM 0.5 MG/2.5 ML INH IH SCH ×6 (01:02→21:51)
[2019-03-25 03:00] VITALS: BP 132/63
[2019-03-25] MEDS: BUDESONIDE 0.5 MG/2 ML INH IH SCH ×2 (06:23→18:21)
[2019-03-25] MEDS: INSULIN HUMULIN R 100 UNIT/ML 3ML SQ SCH ×4 (06:28→21:06)
[2019-03-25 06:35] LABS: MEAN CORPUSCULAR HEMOGLOBIN 30.6 pg (27.0-33.0); MEAN CORPUSCULAR HGB CONC 34.1 g/dL (32.0-36.0); MEAN CORPUSCULAR VOLUME 89.8 fL (79-99); PLATELET COUNT (AUTO) 271 K/uL (130-400); RED BLOOD CELL COUNT(AUTO) 2.28 MIL/uL (4.50-6.20); RED CELL DISTRIBUTION WIDTH 15.8 % (11.0-15.5); WHITE BLOOD COUNT (AUTO) 8.3 K/uL (4.8-10.8)
[2019-03-25 06:44] LABS: CREATININE 1.6 mg/dL (0.5-1.5); MAGNESIUM 2.1 mg/dL (1.80-2.40); PHOSPHORUS 3.2 mg/dL (2.5-4.9)
[2019-03-25 07:04] LABS: HEMATOCRIT 20.5 % (42-54)
[2019-03-25 08:00] VITALS: BP 133/66
[2019-03-25] MEDS: CHOLECALCIFEROL 400 UNIT PO SCH (09:00)
[2019-03-25] MEDS: COLLAGENASE TP SCH (09:00)
[2019-03-25] MEDS: ZINC 50 MG PO SCH (09:00)
[2019-03-25] MEDS: **HM**Empagliflozin (Jardiance) 12.5 MG PO SCH (09:00)
[2019-03-25] MEDS: IPRATROPIUM/ALBUTEROL SULFATE 3 ML SOLUTION IH SCH (10:19)
[2019-03-25] MEDS: AMLODIPINE BESYLATE 5 MG TAB PO SCH (10:57)
[2019-03-25] MEDS: METHYLPREDNISOLONE SOD SUCC 125MG/2ML VIAL IVP SCH (10:57)
[2019-03-25] MEDS: PANTOPRAZOLE SODIUM 40 MG TABLET.DR PO SCH (10:58)
[2019-03-25] MEDS: LUBIPROSTONE 24 MCG CAP PO SCH ×2 (10:58→22:00)
[2019-03-25] MEDS: AMIODARONE HCL 200 MG TABLET PO SCH ×2 (10:58→22:00)
[2019-03-25] MEDS: FUROSEMIDE 40 MG TABLET PO SCH (10:58)
[2019-03-25] MEDS: GABAPENTIN 300 MG CAPSULE PO SCH ×2 (10:58→22:00)
[2019-03-25] MEDS: LABETALOL HCL 200 MG TABLET PO SCH ×2 (10:59→21:00)
[2019-03-25] MEDS: RISPERIDONE 1 MG TABLET PO SCH ×2 (10:59→22:00)
[2019-03-25 11:00] VITALS: BP 150/62
[2019-03-25] MEDS: METRONIDAZOLE 500 MG TABLET PO SCH ×3 (11:00→22:00)
[2019-03-25] MEDS: CLONIDINE HCL 0.1 MG TABLET PO SCH ×3 (11:00→23:30)
[2019-03-25] MEDS: DULOXETINE HCL 30 MG CAP PO SCH ×2 (11:00→22:09)
[2019-03-25] MEDS: FOLIC ACID 1 MG TABLET PO SCH (11:00)
[2019-03-25] MEDS: HONEY 1 APPL/ML TUBE TP SCH ×2 (11:02→22:02)
[2019-03-25] MEDS: IRON SUCROSE COMPLEX 100 MG in SODIUM CHLORIDE 0.9% 50 ML IV SCH (11:02)
[2019-03-25] MEDS ORDERED: INSULIN GLARGINE 100 UNITS/ML 10 ML VIAL SQ SCH (12:45)
[2019-03-25] MEDS: MEGESTROL 400 MG/10 ML UDCUP PO SCH (15:30)
[2019-03-25] MEDS ORDERED: SODIUM CHLORIDE 0.9% 250 ML IV ONE (15:52)
[2019-03-25] MEDS: AZITHROMYCIN 250 MG TABLET PO SCH (15:58)
[2019-03-25 16:00] VITALS: BP 121/50
[2019-03-25] MEDS ORDERED: FERS325 PO (17:47)
--- NOTE | 2019-03-25 18:02 | NUR ---
NURSING NOTE Elevated blood sugars. Patient has been drinking sugary drinks from home and ensure. IN addition to being on ensure at home. He states he wants to go home. Insulin 16 units administered. Also, orders received from Nurse Practitioner to administer 10units of novolog X 1 now. Patient updated. Verbalized understanding and agreement.
--- NOTE | 2019-03-25 18:14 | NUR ---
[facility] substitutes with humalog and administered 10 units subcutaneously X 1 to left abdomen at 181.
[2019-03-25] MEDS ORDERED: INSULIN LISPRO 100 UNIT/ML 3ML SQ SCH (18:15)
--- NOTE | 2019-03-25 18:32 | NUR ---
BLOOD TRANSFUSION/GUAIAC One unit of PRBCs was started at 1654. Blood transfusion due at 2054. Transfusing without any issues. Using blood warmer as indicted by blood bank. Also, a sample of stool for guaiac was sent to lab. Results are positive. Nurse Practitioner Garrison white notified of these results; stated patient is to go to the nearest Emergency Center if needed. Patient wants to go home and has been stating that he wants to go home all day since yesterday and very often.
--- NOTE | 2019-03-25 19:45 | NUR ---
BLOOD TRANSFUSION COMPLETED WITHOUT ANY ADVERSE REACTION. PATIENT AAOX3, NO ACUTE DISTRESS NOTED.
[2019-03-25] MEDS ORDERED: FUROSEMIDE 10 MG/ML 2ML VIAL IV SCH (20:00)
--- NOTE | 2019-03-25 20:26 | NUR ---
ELEVATED BLOOD SUGAR 511MG/DL, PATIENT ASYMPTOMATIC, RESTING IN BED AAOX3, NO ACUTE DISTRESS NOTED. N.P. WAS INFORMED, ORDERS GIVEN TO HOLD TONIGHT'S DISCHARGE, SLIDING SCALE CHANGED TO SLIDING SCALE #2 AND TO ADMINISTER LANTUS 5 UNITS X1. REFER TO DOCTOR'S ORDERS. WILL CONTINUE TO MONITOR. AT BEDSIDE WAS MADE AWARE AND VOICED UNDERSTANDING.
[2019-03-25 20:28] VITALS: BP 110/41
[2019-03-25] MEDS ORDERED: INSULIN GLARGINE 100 UNITS/ML 10 ML VIAL SQ ONE (20:30)
[2019-03-25] MEDS: MULTIVITAMIN TABLET PO SCH (21:59)
[2019-03-25 23:17] VITALS: BP 116/58
[2019-03-26] MEDS: IPRATROPIUM 0.5 MG/2.5 ML INH IH SCH ×3 (02:00→10:26)
[2019-03-26] MEDS: MEGESTROL 400 MG/10 ML UDCUP PO SCH (03:30)
[2019-03-26 03:41] VITALS: BP 146/69
[2019-03-26 05:05] LABS: HEMATOCRIT 23.2 % (42-54); MEAN CORPUSCULAR HEMOGLOBIN 31.4 pg (27.0-33.0); MEAN CORPUSCULAR HGB CONC 34.7 g/dL (32.0-36.0); MEAN CORPUSCULAR VOLUME 90.4 fL (79-99); PLATELET COUNT (AUTO) 237 K/uL (130-400); RED BLOOD CELL COUNT(AUTO) 2.56 MIL/uL (4.50-6.20); RED CELL DISTRIBUTION WIDTH 15.3 % (11.0-15.5); WHITE BLOOD COUNT (AUTO) 9.1 K/uL (4.8-10.8)
[2019-03-26 05:15] LABS: % IRON SATURATION 43.1 % (30-44)
[2019-03-26 05:26] LABS: CREATININE 1.7 mg/dL (0.5-1.5); POTASSIUM 3.9 mmol/L (3.5-5.1); THYROID STIMULATING HORMONE 2.14 uIU/mL (0.36-3.74)
[2019-03-26] MEDS: BUDESONIDE 0.5 MG/2 ML INH IH SCH (06:15)
--- NOTE | 2019-03-26 07:50 | NUR ---
QUESTIONS ABOUT DISCHARGE PATIENT IS AAOX3. NO SIGNS OF DISTRESS NOTED. FOLLOWS COMMANDS. PATIENT ASKING WHEN HE WILL BE DISCHARGED HOME. THE HOSPITAL LIST POLYMERIZATION OVEN OPERATOR MAKING ROUNDS, PATIENT PENDING TO BE SEEN.
[2019-03-26 08:00] VITALS: BP 131/57
[2019-03-26] MEDS: COLLAGENASE TP SCH (09:00)
[2019-03-26] MEDS: ZINC 50 MG PO SCH (09:00)
[2019-03-26] MEDS: **HM**Empagliflozin (Jardiance) 12.5 MG PO SCH (09:00)
[2019-03-26] MEDS: CHOLECALCIFEROL 400 UNIT PO SCH (09:00)
[2019-03-26] MEDS: METRONIDAZOLE 500 MG TABLET PO SCH ×2 (09:29→13:36)
[2019-03-26] MEDS: METHYLPREDNISOLONE SOD SUCC 125MG/2ML VIAL IVP SCH (09:29)
[2019-03-26] MEDS: IRON SUCROSE COMPLEX 100 MG in SODIUM CHLORIDE 0.9% 50 ML IV SCH (09:29)
[2019-03-26] MEDS: LUBIPROSTONE 24 MCG CAP PO SCH (09:30)
[2019-03-26] MEDS: LABETALOL HCL 200 MG TABLET PO SCH (09:30)
[2019-03-26] MEDS: CLONIDINE HCL 0.1 MG TABLET PO SCH (09:30)
[2019-03-26] MEDS: DULOXETINE HCL 30 MG CAP PO SCH (09:30)
[2019-03-26] MEDS: RISPERIDONE 1 MG TABLET PO SCH (09:31)
[2019-03-26] MEDS: GABAPENTIN 300 MG CAPSULE PO SCH (09:31)
[2019-03-26] MEDS: AMLODIPINE BESYLATE 5 MG TAB PO SCH (09:31)
[2019-03-26] MEDS: FOLIC ACID 1 MG TABLET PO SCH (09:32)
[2019-03-26] MEDS: HONEY 1 APPL/ML TUBE TP SCH (09:32)
[2019-03-26] MEDS: FUROSEMIDE 40 MG TABLET PO SCH (09:32)
[2019-03-26] MEDS: PANTOPRAZOLE SODIUM 40 MG TABLET.DR PO SCH (09:33)
[2019-03-26] MEDS: AMIODARONE HCL 200 MG TABLET PO SCH (09:49)
[2019-03-26] MEDS: INSULIN HUMULIN R 100 UNIT/ML 3ML SQ SCH ×2 (09:56→13:39)
[2019-03-26] MEDS ORDERED: METH4TAB3 PO (10:59)
--- NOTE | 2019-03-26 11:30 | NUR ---
DYSPHAGIA EVAL COMPLETED. -S/S OF ASPIRATION. RECOMMEND MECHANICAL SOFT/CHOPPED, THIN LIQUIDS; PILLS WHOLE WITH LIQUIDS. Addendum: 03/26/19 at 1227 by ELLI QUINN, [facility] [[email or web address] ST Amended: Links added.
[2019-03-26 12:00] VITALS: BP 102/53
[2019-03-26] MEDS ORDERED: RISP1TAB89 PO (14:18)
--- NOTE | 2019-03-26 14:46 | NUR ---
DISCHARGE PATIENT IS ANXIOUSLY AWAITING DISCHARGE, CALLED [facility] TRAVELING OPERATOR FOR DISCHARGE ORDERS.
--- NOTE | 2019-03-26 14:47 | NUR ---
DISCHARGE DISCHARGE INSTRUCTIONS GIVEN TO PATIENT AND HIS BOTH VERBALIZED UNDERSTANDING. IV REMOVED. TELEPAK REMOVED. PRESCRIPTIONS FAXED TO [facility].
--- NOTE | 2019-03-27 08:30 | NUR ---
CALL FROM PT'S T/C FROM PT'S ASKING ABOUT PRESCRIPTIONS IF THEY CAN BE [facility] TO [facility], INFORMED WILL LOOK INTO IT AND CALL HER BACK
--- NOTE | 2019-03-27 08:45 | NUR ---
T/C TO PT'S T/C TO PT'S TO EXPLAIN ABOUT PRESCRIPTIONS POSSIBLE TO [facility], PT'S BECAME VERY UPSET, USING FOUL LANGUAGE AND DID NOT LET ME EXPLAIN OPTIONS.
--- NOTE | 2019-03-27 08:55 | NUR ---
CALL TO [facility] STAMP MOUNTER CALL [facility] AND EXPLAIN TO HER AND OK TO SEND [facility] TO [facility].
[2019-03-30] MEDS ORDERED: EPOETIN ALFA 10,000 UNIT/ML VIAL SQ SCH (09:00)
== END 2019-03-26 14:50 | disposition home or self-care (01) | DRG 291 ==
LOC: EDH 18:25 → EDHIP 22:11 → OBSVTOIN 22:11 → 3DH 03-23 00:34
PROVIDERS: ADMIT Internal Medicine; ATTEND Internal Medicine
PROC: 30233N1 Transfusion of Nonautologous Red Blood Cells into Peripheral Vein, Percutaneous Approach (ICD-10-PCS; principal; 2019-03-22)
PROC: 5A09357 Assistance with Respiratory Ventilation, Less than 24 Consecutive Hours, Continuous Positive Airway Pressure (ICD-10-PCS; 2019-03-25)
DX: I13.0 Hypertensive heart and chronic kidney disease with heart failure and stage 1 through stage 4 chronic kidney disease, or unspecified chronic kidney disease (principal); E43 Unspecified severe protein-calorie malnutrition; N17.9 Acute kidney failure, unspecified; I50.32 Chronic diastolic (congestive) heart failure; Z68.1 Body mass index [BMI] 19.9 or less, adult; D64.9 Anemia, unspecified; N18.3 Chronic kidney disease, stage 3 (moderate); E11.65 Type 2 diabetes mellitus with hyperglycemia; D63.8 Anemia in other chronic diseases classified elsewhere; G89.4 Chronic pain syndrome; E78.5 Hyperlipidemia, unspecified; J44.9 Chronic obstructive pulmonary disease, unspecified; E11.22 Type 2 diabetes mellitus with diabetic chronic kidney disease; I25.10 Atherosclerotic heart disease of native coronary artery without angina pectoris; I48.0 Paroxysmal atrial fibrillation; E11.51 Type 2 diabetes mellitus with diabetic peripheral angiopathy without gangrene; K57.90 Diverticulosis of intestine, part unspecified, without perforation or abscess without bleeding; F12.90 Cannabis use, unspecified, uncomplicated; T38.0X5A Adverse effect of glucocorticoids and synthetic analogues, initial encounter; Z99.81 Dependence on supplemental oxygen; Z82.3 Family history of stroke; Z86.73 Personal history of transient ischemic attack (TIA), and cerebral infarction without residual deficits; Z82.49 Family history of ischemic heart disease and other diseases of the circulatory system; Z95.5 Presence of coronary angioplasty implant and graft; Z72.0 Tobacco use; Z88.1 Allergy status to other antibiotic agents; Z88.8 Allergy status to other drugs, medicaments and biological substances; Y92.89 Other specified places as the place of occurrence of the external cause
CPT/HCPCS: 36415; 36430; 80048; 80053; 81001; 82270; 82607; 82746; 82947; 82948; 83540; 83550; 83735; 84100; 84443; 85025; 85027; 85610; 85730; 86850; 86900; 86901; 86922; 92610; 94640; 94664; G0378; J0885; J1756; J1815; J1940; J2930; J7030; J7040; J7070; P9016

== ENCOUNTER 2019-03-27 03:01 | Emergency (ER) | payer OTHER ==
[~2019-03-27 03:01] MED LIST changes: +FERS325 PO; -GLIP5TAB11 PO; +LIDO15CR11 TP; +METH4TAB3 PO; +RISP1TAB89 PO
[2019-03-27] MEDS ORDERED: DIAZEPAM 2 MG TAB ONE (03:23)
[2019-03-27] MEDS ORDERED: IPRATROPIUM/ALBUTEROL SULFATE 3 ML SOLUTION IH ONE (03:33)
[2019-03-27] MEDS ORDERED: FUROSEMIDE 10 MG/ML 4ML VIAL ONE (04:57)
== END 2019-03-27 07:23 | disposition home or self-care (01) ==
LOC: EDH 03:01
DX: J44.1 Chronic obstructive pulmonary disease with (acute) exacerbation (principal); J80 Acute respiratory distress syndrome; I11.0 Hypertensive heart disease with heart failure; I50.43 Acute on chronic combined systolic (congestive) and diastolic (congestive) heart failure; E11.9 Type 2 diabetes mellitus without complications; E78.5 Hyperlipidemia, unspecified; I20.9 Angina pectoris, unspecified
CPT/HCPCS: 71045; 94640; 96374; 99284; J1940

== ENCOUNTER 2019-03-27 18:37 | Emergency (ER) | payer OTHER ==
[2019-03-27] MEDS ORDERED: METHYLPREDNISOLONE SOD SUCC 125MG/2ML VIAL ONE (19:08)
[2019-03-27] MEDS ORDERED: IPRATROPIUM/ALBUTEROL SULFATE 3 ML SOLUTION IH ONE (19:08)
[2019-03-27 19:43] LABS: BASOPHILS % (AUTO) 0.1 % (0.0-5.0); HEMATOCRIT 26.4 % (42-54); LYMPHOCYTES % (AUTO) 1.2 % (21.0-51.0); MEAN CORPUSCULAR HEMOGLOBIN 30.8 pg (27.0-33.0); MEAN CORPUSCULAR HGB CONC 33.1 g/dL (32.0-36.0); MEAN CORPUSCULAR VOLUME 92.9 fL (79-99); MONOCYTES % (AUTO) 3.5 % (3.0-13.0); NEUTROPHILS % (AUTO) 95.2 % (40.0-77.0); PLATELET COUNT (AUTO) 234 K/uL (130-400); RED BLOOD CELL COUNT(AUTO) 2.84 MIL/uL (4.50-6.20); RED CELL DISTRIBUTION WIDTH 15.8 % (11.0-15.5); WHITE BLOOD COUNT (AUTO) 14.2 K/uL (4.8-10.8)
[2019-03-27 19:47] LABS: ALBUMIN 1.7 g/dL (3.5-5.0); BILIRUBIN,TOTAL 0.5 mg/dL (0.2-1.0); CREATININE 1.9 mg/dL (0.5-1.5); POTASSIUM 4.2 mmol/L (3.5-5.1)
[2019-03-27] MEDS ORDERED: INSULIN HUMULIN R 100 UNIT/ML 3ML ONE (19:55)
[2019-03-27 19:57] LABS: INR 1.22 (0.85-1.15); PARTIAL THROMBOPLASTIN TIME 29.6 SEC (26.3-35.5); PROTHROMBIN TIME 12.7 SEC (9.6-11.6)
[2019-03-27 20:02] LABS: APPEARANCE,URINE Clear (CLEAR); BILIRUBIN,URINE Negative (NEGATIVE); COLOR,URINE Yellow (YELLOW); GLUCOSE, URINE (UA) >=1000 mg/dL (NEGATIVE); KETONES,URINE Negative (NEGATIVE); LEUKOCYTE ESTERASE ,URINE Negative (NEGATIVE); NITRATE,URINE Negative (NEGATIVE); OCCULT BLOOD,URINE Negative (NEGATIVE); PH,URINE 5.5 (5.0-8.0); PROTEIN,URINE POS 1+ mg/dL (NEGATIVE); UROBILINOGEN,URINE 0.2 mg/dL (0.2-1.0)
[2019-03-27 20:14] LABS: B-TYPE NATRIURETIC PEPTIDE 832 pg/mL (0-100)
[2019-03-27 20:18] LABS: BACTERIA,URINE Rare /HPF (None Seen); RBC,URINE 0-1 /HPF (0-1); WBC,URINE 0-1 /HPF (0-1)
[2019-03-27 20:19] LABS: SQUAMOUS EPITHELIAL CELL,UR Rare /HPF (0-2); YEAST,URINE BUDDING Rare /HPF (None Seen)
== END 2019-03-27 22:14 | disposition left against medical advice (07) ==
LOC: EDH 18:37
DX: J44.1 Chronic obstructive pulmonary disease with (acute) exacerbation (principal); I11.0 Hypertensive heart disease with heart failure; I50.9 Heart failure, unspecified; E11.9 Type 2 diabetes mellitus without complications; I25.10 Atherosclerotic heart disease of native coronary artery without angina pectoris; E78.5 Hyperlipidemia, unspecified
CPT/HCPCS: 36415; 71045; 80053; 81001; 82550; 82948; 83880; 84484; 85025; 85610; 85730; 93005; 96374; 96375; 99285; J1815; J2930